=== PATIENT | female | born 1965 ===

== ENCOUNTER 2023-02-01 07:30 | Outpatient (REF) | payer OTHER, SELFPAY ==
[2023-02-01 11:27] LABS: Estimated Average Glucose 108 mg/dL; Hemoglobin A1c % 5.4 % (<6.0)
[2023-02-01 11:43] LABS: Appearance Urine Clear; Color Urine Yellow; Glucose Urine UA Negative (Negative); Leukocyte Esterase Urine Negative (Negative); Nitrite Urine Negative (Negative); Specific Gravity - Urine 1.015 (1.005-1.025); UMIC TRIGGER UA YES; Urine Blood Trace (Negative); Urine Ketones Negative (Negative); Urine Protein Negative (Neg-Trace)
[2023-02-01 11:51] LABS: Bacteria Urine 4+ (None Seen); Hyaline Casts Urine 0-2 /LPF (0-2); RBC Urine 0-2 /HPF (0-2); WBC Urine 0-5 /HPF (0-5)
[2023-02-01 11:53] LABS: Alanine Aminotransferase 29 U/L (0-31); Albumin Level 4.1 g/dL (3.5-5.0); Alkaline Phosphatase 72 U/L (39-117); Anion Gap 16 (12-20); Aspartate Amino Transferase 28 U/L (5-31); Bilirubin Total 0.4 mg/dL (0.0-1.0); Blood Urea Nitrogen 15 mg/dL (9-16); Calcium 9.8 mg/dL (8.4-10.2); Carbon Dioxide 27 mmol/L (22-29); Chloride 105 mmol/L (96-108); Cholesterol 166 mg/dL (<200); Estimated Glomerular Filt Rate > 60; Glucose Fasting 112 mg/dL (60-99); HDL Cholesterol 52 mg/dL (>40); LDL Cholesterol Calculated 91 mg/dL (<100); Potassium 4.5 mmol/L (3.3-5.1); Sodium 143 mmol/L (135-145); Total Protein 7.5 g/dL (6.5-8.0); Triglycerides 115 mg/dL (<150)
[2023-02-01 11:57] LABS: TSH reflex Free T4 1.87 uIU/mL (0.32-4.0); Vitamin D 25-OH Total 57.7 ng/mL (>30)
[2023-02-01 12:14] LABS: Creatinine Urine 96.28 mg/dL; Microalbum/Creatinine Ratio Ur 36.3 ug/mg cr (<30)
== END 2023-02-01 07:31 | disposition home or self-care (01) ==
LOC: HO.WFDLDS 07:30
PROVIDERS: Visit Provider Family Medicine
DX: Z00.00 Encounter for general adult medical examination without abnormal findings (principal); R73.01 Impaired fasting glucose; E55.9 Vitamin D deficiency, unspecified; I10 Essential (primary) hypertension
CPT/HCPCS: 36415; 80053; 80061; 81001; 82043; 82306; 82570; 83036; 84443

== ENCOUNTER 2023-03-06 13:55 | Outpatient (AMB) | payer OTHER, SELFPAY ==
[2023-03-06 13:59] VITALS: BP 128/64; PULSE 77; O2SAT 98; BMI 37.4
--- NOTE | 2023-03-06 13:59 | A.OFFPC_ITS ---
Vital Signs 03/06/23 13:59 Height 5 ft 2 in Weight 204 lb 8 oz BMI 37.4 BP 128/64 Blood Pressure Location Lt brachial Position Sitting Pulse 77 Pulse Source Pulse Oximeter Pulse Oximetry (%) 98 Oxygen Delivery Method Room Air Intake Visit Reasons: Ext.Exam w/ labs fup NEEDS MARQUIS Nieves MD INTERPRET. Intake Note: Patient is here with asthma symptoms and left foot pain. She had labs would like to go over them. Allergies No Known Allergies Allergy (Verified 03/06/23 14:06) Tobacco use date assessed: 03/06/23 Dental Screening Dental Screen Date: 03/06/23 Did you have a dental visit in the last 12 months?: Yes Did you have a dental problem in the last 6 months where you did not have access to dental care?: No Was dental information given to patient?: Patient has dentist HPI Ext.Exam w/ labs fup NEEDS MARQUIS Nieves MD INTERPRET. HPI Details Patient?presents?for?extended?exam Labs were drawn 02/01/23. Reviewed labs with pt. Elevated fasting glucose of 112 and A1c 5.4%. Triglycerides 115. TC 166. LDL 91. Asthma?symptoms - pt reports coughing/wheezing. Foot?pain Rash on arms They also have complaints of a rash. [facility] Medical History Prediabetes Asthma Kidney stone Hernia Surgical History History of ureteroscopy History of herniorrhaphy Family History Maternal Grandmother Alzheimer's dementia Osteoarthritis Father Diabetes Social History Caregiver staying overnight: No Housing: Apartment Are you a primary health care marketing manager to a significant other at home: No Do you presently have visiting nurse or other home services: No 75 years or older and lives alone: No Patient Tobacco Use Status: Former Tobacco user Quit Date: 3 Years ago Tobacco use type: Cigarette Cigarette Packs Per Day: 1 (1 pack per 2 days) Cigarettes Per Day: 10 e-Cigarette/Vaping Use: Never Used Second Hand Smoke Exposure: Yes (Due to where patient lives.) service: No Current occupational status: unemployed Current occupational exposures/hazards: No Cognitive needs: No Hearing needs: Yes Vision needs: Yes Questionnaire PHQ-9 Over the last 2 weeks, how often have you been bothered by any of the following problems? 1. Little interest or pleasure in doing things: not at all 2. Feeling down, depressed, or hopeless: several days 3. Trouble falling or staying asleep, or sleeping too much: several days 4. Feeling tired or having little energy: several days 5. Poor appetite or overeating: not at all 6. Feeling bad about yourself - or that you are a failure or have let yourself or your family down: not at all 7. Trouble concentrating on things, such as reading the newspaper or watching television: not at all 8. Moving or speaking so slowly that other people could have noticed. Or the opposite - being so fidgety or restless that you have been moving around a lot more than usual: not at all 9. Thoughts that you would be better off or of hurting yourself in some way: not at all Total score: 3 Depression Screening Interpretation: Negative Depression Screening Done: Yes 43418 - PHQ-9 Billing: Yes Source: Developed by Drs. Irwin Disla, Yany Bower, Ronen Cloud and colleagues, with an educational ros from [employer]. Thrive Questionnaire Date Thrive assessed: 09/26/22 ROBINSON-7 AMB Questionnaire ROBINSON-7 Date ROBINSON - 7 assessed: 03/06/23 Feeling nervous, anxious, or on edge: 1 = Several days Not being able to stop or control worryin = More than half the days Worrying too much about different things: 1 = Several days Trouble relaxin = Several days Being so restless that it is hard to sit still: 0 = Not at all Becoming easily annoyed or irritable: 2 = More than half the days Feeling afraid as if something awful might happen: 1 = Several days Total ROBINSON-7 score (0-4 normal; 5-9 mild; 10-14 moderate; 15-21 severe): 8 Source: Developed by Drs. Irwin Disla, Yany Bower, Ronen Cloud and colleagues, with an educational ros from [employer]. ROBINSON-7 Assessment Billing ROBINSON-7 Assessment Tool: ROBINSON-7 Assessment [id number] ACT Questionnaire In the past 4 weeks, how much of the time did your asthma keep you from getting as much done at work, school or at home?: Most of the time During the past 4 weeks, how often have you had shortness of breath?: Once a day During the past 4 weeks, how often did your asthma symptoms wake you up at night or earlier than usual in the morning?: 4 or more nights a week During the past 4 weeks, how often have you had to use your rescue inhaler or nebulizer medication?: More than 3 times per day How would you rate your asthma control during the past 4 weeks?: Poorly controlled Score: 8 Review of Systems Const Denies chills, Denies fatigue, Denies fever(s), Denies headache(s) and Denies weakness Eyes Denies change in vision ENT Denies dizziness, Denies headache(s), Denies hearing loss, Denies nasal congestion, Denies sinus pain, Denies sinus pressure and Denies sore throat Card Denies chest pain, Denies lightheadedness, Denies dyspnea and Denies other (palpitations) Resp Reports cough, Denies dyspnea and Denies wheezing GI Denies abdominal pain, Denies melena, Denies hematochezia, Denies change in bowel habits, Denies dyspepsia and Denies nausea Denies hematuria and Denies dysuria Musc Denies abnormal gait, Denies myalgias, Denies arthralgias, Denies numbness and Denies tingling Skin/Breast Reports rash Neuro Denies abnormal gait, Denies dizziness, Denies headache(s), Denies memory loss, Denies numbness, Denies Sensory deficit (Neuro), Denies tingling and Denies weakness Psych Denies anxiety, Denies depression and Denies memory loss Endo Denies cold intolerance, Denies fatigue, Denies heat intolerance, Denies polydipsia and Denies polyuria Donny/Lymph Denies easy bleeding and Denies easy bruising Aller/Immun Denies wheezing Physical exam (Primary Care) Vital Signs: Last Vital Signs Pulse 77 03/06/23 13:59 BP 128/64 03/06/23 13:59 Pulse Ox 98 03/06/23 13:59 Oxygen Delivery Method Room Air 03/06/23 13:59 BMI result Body Mass Index 37.4 Tobacco/Smoking Status: Tobacco use Status Tobacco use date assessed 03/06/23 03/06/23 14:08 Patient Tobacco Use Status Former Tobacco user 03/06/23 14:05 Tobacco use type Cigarette 03/06/23 14:05 e-Cigarette/Vaping Use Never Used 03/06/23 14:05 PHQ-9: PHQ-9 Score PHQ-9: Total score 3 03/06/23 14:18 Depression Screening Interpretation: Negative Thrive Assessment: Date of Thrive Assessment Date Thrive assessed 09/26/22 03/06/23 14:05 Const General: no acute distress, well developed, alert and awake Nutritional Appearance: well nourished Orientation/consciousness: patient oriented x3 HENMT Head: Yes normocephalic and Yes atraumatic Ears: hearing grossly normal bilaterally and TM's normal bilaterally General nose exam: Normal external nose present and Normal nares present Mouth: Normal oral and palatal mucosa present and moist mucous membranes Teeth and gingiva: dentition normal Throat: Yes posterior oropharynx normal Eyes General: appearance normal, both eyes and all related structures Pupils: Equal, round and reactive pupils present and Pupil accommodation reflex normal EOM: EOMs intact bilaterally Neck Neck: Yes normal visual inspection, Yes no lymphadenopathy and Yes trachea midline Thyroid: Thyroid normal Carotids: no bruits Lymphatic: no lymphadenopathy noted Chest Chest palpation & inspection: normal inspection of the chest Resp Effort & Inspection: normal respiratory effort Auscultation: clear to auscultation bilaterally Cardio Rate: regular rate Rhythm: regular rhythm Heart sounds: S1 normal heart sound present, S2 normal heart sound present, no gallops, no murmurs and no rubs Bruits: no abdominal aortic bruits and no carotid bruits GI Palpation (GI): No Abdominal aortic bruit present, Soft to palpation, nontender, No hepatosplenomegaly present and No Rebound tenderness present Auscultation: normal bowel sounds General: Yes no CVA tenderness Back/Spine/Pelvis Back: no CVA tenderness Cervical Spine: cervical ROM normal and No Cervical spine tenderness Thoracic/Lumbar Spine: thoraco-lumbar ROM normal, No pain with thoraco-lumbar ROM, No thoracic spinal tenderness and No lumbar spinal tenderness Skin Lesions: no lesions Rashes: no rashes Trauma: no lacerations or abrasions Wounds: no wounds Nails: normal Neuro General: patient oriented x3 Cranial nerves: Yes Equal, round and reactive pupils present Cognition (Neuro): normal cognition Gait exam (Neuro): Normal gait present Motor exam (neuro): 5/5 motor strength present throughout Sensory Exam: No Sensory deficit (Neuro) Deep tendon reflexes (DTR's): Right patellar reflex intensity grade: 2+ and Left patellar reflex intensity grade: 2+ Extrem General: Yes normal to inspection and No edema Psych Appearance: grossly normal Affect: normal affect Attitude: cooperative Thought process: Normal thought process present Assessment and Plan Assessment & Plan (1) Asthma exacerbation: Code(s): J45.901 - Unspecified asthma with (acute) exacerbation Plan: Poorly?controlled?asthma.??Patient?taking?Ventolin?inhaler?only.??Only?taking?th is?about?twice?a?day. Would? increase?to?4?times?per?day?and?up?to?every?4?hours?as?needed?for?symptoms. Patient?had?had?Trelegy?in?the?past?and?I?will?add?this?back?as?well. Of?note?patient?had?strong?perfume?and?I?recommended?against?this. (2) Rash: Code(s): R21 - Rash and other nonspecific skin eruption Plan: Rash?on?arms?and?as?above,?patient?had?strong?smelling?perfumes/lotion Advised?against?this. Can?use?Lubriderm?or?Eucerin (3) Diabetes: Code(s): E11.9 - Type 2 diabetes mellitus without complications Plan: Controlled.??A1c?goal?is?less?than?7.0% Continue?current?medication?regimen?and?continue?good?diabetic?diet. (4) Plantar fasciitis: Code(s): M72.2 - Plantar fascial fibromatosis Plan: Demonstrated?exercises?for?patient. She?can?call?if?not?improving (5) Low vitamin D level: Code(s): R79.89 - Other specified abnormal findings of blood chemistry Plan: Vitamin-D?level?is?good She?can?use?a?OTC?supplement?through?the?winter. (6) GERD (gastroesophageal reflux disease): Code(s): K21.9 - Gastro-esophageal reflux disease without esophagitis Plan: Significant?GERD?symptoms Increased?omeprazole?temporarily Referred?to?GI (7) Breast cancer screening: Code(s): Z12.39 - Encounter for other screening for malignant neoplasm of breast Plan: Due?for?mammogram Patient?notes?that?she?had?an?abnormal?mammogram?but?normal?biopsy Mammogram?ordered (8) Anxiety: Code(s): F41.9 - Anxiety disorder, unspecified Plan: Referred?to?nurse?navigator?for?connection?with?a?therapist (9) Foul smelling urine: Code(s): R82.90 - Unspecified abnormal findings in urine Plan: Start?Macrobid Hydrate?well (10) Obesity: Code(s): E66.9 - Obesity, unspecified Plan: Referred?to?weight?management (11) Screening for colon cancer: Code(s): Z12.11 - Encounter for screening for malignant neoplasm of colon Plan: Referred?to?GI?as?above (12) Screening for cervical cancer: Code(s): Z12.4 - Encounter for screening for malignant neoplasm of cervix Plan: No?further?Pap?smears.??Patient?has?had?hysterectomy (13) Adult general medical examination: Code(s): Z00.00 - Encounter for general adult medical examination without abnormal findings Plan: 57-year-old?female?presents?for?extended?exam Encouraged?healthy?diet?with?active?lifestyle?and?exercise. Orders: Orders Basic Metabolic Panel Fasting Today E66.9 - Obesity, unspecified MM tomosynthesis screening BI Today Z12.31 - Encounter for screening mammogram for malignant neoplasm of breast Referrals Nurse Navigator Referral F41.9 - Anxiety disorder, unspecified Medical Weight Management Referral E11.9 - Type 2 diabetes mellitus without complications, E66.9 - Obesity, unspecified Gastroenterology Referral K21.9 - Gastro-esophageal reflux disease without esophagitis, Z12.11 - Encounter for screening for malignant neoplasm of colon Medications: New nitrofurantoin monohyd/m-cryst 100 mg (Macrobid) must administer with a meal/food 100 mg PO Q12H 5 days 10 caps 0RF Coding Level of Care Code Est Pt Level 4 (65061) Diagnoses Asthma exacerbation J45.901 Rash R21 Diabetes E11.9 Plantar fasciitis M72.2 Low vitamin D level R79.89 GERD (gastroesophageal reflux disease) K21.9 Breast cancer screening Z12.39 Anxiety F41.9 Foul smelling urine R82.90 Obesity E66.9 Screening for colon cancer Z12.11 Screening for cervical cancer Z12.4 Adult general medical examination Z00.00 Additional Codes ROBINSON-7 Assessment Billing - ROBINSON-7 Assessment Tool: ROBINSON-7 Assessment [id number] ([id number])
== END 2023-03-06 15:00 | disposition home or self-care (01) ==
PROVIDERS: PCP Family Medicine; Visit Provider Family Medicine
DX: E11.9 Type 2 diabetes mellitus without complications (principal); J45.901 Unspecified asthma with (acute) exacerbation; R21 Rash and other nonspecific skin eruption; M72.2 Plantar fascial fibromatosis; R79.89 Other specified abnormal findings of blood chemistry; K21.9 Gastro-esophageal reflux disease without esophagitis; F41.9 Anxiety disorder, unspecified; R82.90 Unspecified abnormal findings in urine; E66.9 Obesity, unspecified
CPT/HCPCS: 99214

== ENCOUNTER 2023-03-19 17:11 | Emergency (ER) | payer OTHER, SELFPAY ==
--- NOTE | ~2023-03-19 | XR_ITS ---
EXAMINATION: XR CHEST CLINICAL INFORMATION: Cough COMPARISON: None available. TECHNIQUE: Frontal view of the chest was obtained. FINDINGS: No significant abnormality is noted involving the heart, lungs, mediastinum, bony thorax or soft tissues. XR/XR chest 1V IMPRESSION: Unremarkable examination.
[2023-03-19 17:32] VITALS: BP 153/103; PULSE 98; RESP 24; TEMP 36.4; O2SAT 94; BMI 34.3
--- NOTE | 2023-03-19 17:32 | ED_ITS ---
HPI - General Adult General Chief complaint: Asthma Stated complaint: Asthma Time Seen by Provider: 03/19/23 17:51 History of Present Illness HPI narrative: 57 y/o F patient; PMH HTN, asthma, pre-diabetes; presents from out-patient services at this hospital reporting increased difficulty breathing with walking. The patient states she was in the hospital watching her grandson while her daughter had a procedure. On their walk to the car she became increasingly short of breath with coughing. For approx the last 1 week she has had increased runny nose, congestion, and dry non-productive coughing. She does not currently follow with pulmonology as [place] 1 [place] ago from [place]. She denies any prior ICU admissions or intubations. She has been an ex-smoker for 3 years. She otherwise denies: chest pain, fever or chills, nausea or vomiting, abdominal pain. Related Data Home Medications Medication Instructions Recorded Confirmed albuterol sulfate 90 mcg/actuation 1 inh inhalation QID 09/26/22 aerosol inhaler (Ventolin HFA) Previous Rx's Medication Instructions Recorded lisinopril 5 mg tablet 5 mg PO DAILY 90 days #90 tabs 09/27/22 metformin 500 mg tablet 500 mg PO DAILY 90 days #90 tabs 09/27/22 budesonide-formoterol HFA 80 1 inh inhalation BID 30 days #10.2 12/25/22 mcg-4.5 mcg/actuation aerosol grams inhaler (Symbicort) nitrofurantoin 100 mg PO Q12H 5 days #10 caps 03/06/23 monohydrate/macrocrystals 100 mg capsule (Macrobid) albuterol sulfate 90 mcg/actuation 2 puff inhalation Q6-8H PRN 03/11/23 aerosol inhaler (Ventolin HFA) wheezing 0 days #8.5 grams fluticasone fur. 200 mcg-umeclid 1 inh inhalation DAILY 28 days #28 03/12/23 62.5 mcg-vilant 25 mcg ea inhalat.powder (Trelegy Ellipta) omeprazole 20 mg capsule,delayed 20 mg PO DAILY 90 days #90 caps 03/12/23 release albuterol sulfate 2.5 mg/3 mL 2.5 mg (3 mL) inhalation Q4-6H PRN 03/14/23 (0.083 %) solution for nebulization shortness of breath or wheezing 30 days #180 mL fluticasone 500 mcg-salmeterol 50 1 inh inhalation Q12H 30 days #60 03/14/23 mcg/dose blistr powdr for ea inhalation (Wixela Inhub) ipratropium bromide 17 2 puff inhalation Q8H #12.9 grams 03/19/23 mcg/actuation HFA aerosol inhaler (Atrovent HFA) prednisone 50 mg tablet 50 mg PO DAILY 5 days #5 tabs 03/19/23 Allergies Allergy/AdvReac Type Severity Reaction Status Date / Time No Known Allergies Allergy Verified 03/06/23 14:06 Review of Systems 2 Review of Systems: Yes all other systems are reviewed and are negative [facility] Past Medical History Attestation statement: The following information was validated with the patient. Medical History Prediabetes Asthma Kidney stone Hernia Surgical History History of ureteroscopy History of herniorrhaphy Family History Family History Maternal Grandmother Alzheimer's dementia Osteoarthritis Father Diabetes Social History Social History Housing: Apartment Are you a primary wound care specialist to a significant other at home: No Do you presently have visiting nurse or other home services: No Patient Tobacco Use Status: Former Tobacco user Quit Date: 3 Years ago Tobacco use type: Cigarette Cigarette Packs Per Day: 1 (1 pack per 2 days) Cigarettes Per Day: 10 Smoked in Last 30 Days: No e-Cigarette/Vaping Use: Never Used Second Hand Smoke Exposure: Yes (Due to where patient lives.) Advance Directives: No Advance Directives Information Provided: No service: No Current occupational status: unemployed Current occupational exposures/hazards: No Cognitive needs: No Hearing needs: Yes Vision needs: Yes Physical Exam ED Vital Signs: Vital Signs - 24 hr 03/19/23 17:32 03/19/23 19:32 03/19/23 20:43 Temperature 97.5 F Pulse Rate 98 88 92 Respiratory Rate 24 H 18 18 Blood Pressure 153/103 H 117/66 Pulse Oximetry 94 98 Oxygen Delivery Method Room Air Room Air BMI result Body Mass Index 34.3 Patient is afebrile, mildly tachycardic, and saturating well on room air. Const General: cooperative, comfortable and no acute distress Orientation/consciousness: patient oriented x3 Chest Chest palpation & inspection: normal inspection of the chest Resp Other: Bilateral end-expiratory diffuse wheezing Effort & Inspection: normal respiratory effort, able to speak in complete sentences, no audible wheezes, no respiratory distress, no retractions, no stridor and not tachypneic Auscultation: wheezes Cardio Rate: regular rate Rhythm: regular rhythm GI Inspection: Yes normal to inspection Palpation (GI): Soft to palpation, nontender, no guarding and not rigid Auscultation: normal bowel sounds Neuro General: patient oriented x3 Course Course Course Narrative: This is an RME: Additional HPI, ROS, PE not included below will be deferred to primary provider. 57 year old female presents w/ cough, congestion and asthma X 1 week using home treatments w/ little to no relief. Plan- bronch protocol Reevaluation(s) Reevaluation #1: Reviewed triage work up including CBC, BMP, and CXR. Laboratory studies unremarkable. CXR read as unremarkable. Received x1 Albuterol 2.5mg dose by respiratory. Ordered Solu-Medrol 125mg IV. Requested second treatment with respiratory. Patient saturating 100% on RA. Reevaluation #2: Patient re-evaluated multiple times. Reports significant improvement following 2nd treatment. Ambulatory O2 >95% on RA. Patient comfortably eating [employer]. Patient requesting Atrovent rx. Clarified with patient she is only taking Ventolin right now due to issues with insurance authorization. Will send rx Atrovent to pharmacy. Plan: Discharge to home with PCP follow up, referral for pulmonology provided Condition: Stable Rx Prednisone 5 days 50mg sent to pharmacy Medications Administered Discontinued Medications Generic Name Dose Route Start Last Admin Trade Name Freq PRN Reason Stop Dose Admin Albuterol Sulfate 5 mg/ 0 mg 03/19/23 20:38 03/19/23 20:41 Albuterol/Ipratropium 3 ml INHALE 03/19/23 20:39 7.5 each ONCE ONE Administration Methylprednisolone Sodium Succinate 125 mg 03/19/23 20:22 03/19/23 20:33 Methylprednisolone Sod Succ 125 Mg/2 Ml Vial IVPUSH 03/19/23 20:23 125 mg ONCE ONE Administration Medical Decision Making Lab Data 03/19/23 17:49 03/19/23 17:49 Labs: Lab Results 03/19/23 Range/Units 17:49 WBC 9.6 (4.8-10.8) X10*3/uL RBC 4.53 (4.20-5.50) X10*6/uL Hgb 13.6 (12.0-16.0) g/dl Hct 41.2 (37.0-47.0) % MCV 90.9 (80.0-98.0) fL MCH 30.0 (27.0-33.0) pg MCHC 33.0 (31.0-35.0) g/dl RDW 13.2 (11.0-16.0) % Plt Count 324 (160-400) X10*3/uL MPV 9.3 L (9.4-12.3) fL Immature Gran % (Auto) 0.6 H (0.0-0.4) % Neut % (Auto) 53.5 (45-73) % Lymph % (Auto) 30.4 (20-40) % Barrow % (Auto) 8.1 (2-11) % Eos % (Auto) 6.6 H (0-4) % Baso % (Auto) 0.8 (0-2) % Lymph # (Auto) 2.9 (1.2-4.9) X10*3/uL [place] # (Auto) 0.8 (0.1-1.2) X10*3/uL Eos # (Auto) 0.6 H (0.0-0.4) X10*3/uL Baso # (Auto) 0.1 (0.0-0.2) X10*3/uL Abs Immat Gran (auto) 0.06 H (0.00-0.03) X10*3/uL Absolute Neuts (auto) 5.2 (2.0-8.3) x10*3/uL Absolute Nucleated RBC 0.000 (0.0-0.012) X10*3/uL Nucleated RBC % (auto) 0.0 (0.0-0.2) /100WBC Sodium 144 (135-145) mmol/L Potassium 4.1 (3.3-5.1) mmol/L Chloride 107 (96-108) mmol/L Carbon Dioxide 29 (22-29) mmol/L Anion Gap 12 (12-20) BUN 12 (9-16) mg/dL Creatinine 0.75 (0.5-1.4) mg/dL Estim Creat Clear Calc 89.2 Estimated GFR > 60 Random Glucose 93 (60-115) mg/dL Calcium 9.3 (8.4-10.2) mg/dL Total Bilirubin 0.2 (0.0-1.0) mg/dL AST 32 H (5-31) U/L ALT 30 (0-31) U/L Alkaline Phosphatase 80 (39-117) U/L Total Protein 7.8 (6.5-8.0) g/dL Albumin 4.2 (3.5-5.0) g/dL Discharge Plan Discharge Clinical Impression: Asthma exacerbation Patient Disposition: Home, Self-Care Instructions: Asthma (DC) Additional Instructions: As we discussed, you were seen today for an asthma exacerbation. You received a steroid and breathing treatments with improvement. A steroid has been sent to your pharmacy, take this once a day for 5 days. Please follow up with the building insulation installer within 1 week to discuss your recent ED visit. Return to the ED for chest pain, worsening difficulty breathing. Prescriptions: New prednisone 50 mg tablet 50 mg PO DAILY 5 Days Qty: 5 0RF Atrovent HFA 17 mcg/actuation HFA aerosol inhaler 2 puff inhalation Q8H Qty: 12.9 0RF No Action metformin 500 mg tablet 500 mg PO DAILY 90 Days Qty: 90 3RF lisinopril 5 mg tablet 5 mg PO DAILY 90 Days Qty: 90 2RF budesonide-formoterol [Symbicort] 80-4.5 mcg/actuation HFA aerosol inhaler 1 inh inhalation BID 30 Days Qty: 10.2 3RF albuterol sulfate [Ventolin HFA] 90 mcg/actuation HFA aerosol inhaler 2 puff inhalation Q6-8H PRN (Reason: wheezing) Qty: 8.5 3RF Trelegy Ellipta 200-62.5-25 mcg blister with device 1 inh inhalation DAILY 28 Days Qty: 28 3RF omeprazole 20 mg capsule,delayed release(DR/EC) 20 mg PO DAILY 90 Days Qty: 90 2RF fluticasone propion-salmeterol [Wixela Inhub] 500-50 mcg/dose blister with device 1 inh inhalation Q12H 30 Days Qty: 60 3RF albuterol sulfate 2.5 mg /3 mL (0.083 %) solution for nebulization 2.5 mg inhalation Q4-6H PRN (Reason: shortness of breath or wheezing) 30 Days Qty: 180 3RF nitrofurantoin monohyd/m-cryst [Macrobid] 100 mg capsule 100 mg PO Q12H 5 Days Qty: 10 0RF Rx Instructions: must administer with a meal/food albuterol sulfate [Ventolin HFA] 90 mcg/actuation HFA aerosol inhaler 1 inh inhalation QID Referrals: [facility] [Provider Group] - 1 week
[2023-03-19 17:54] LABS: MANUAL DIFF FLAG NO
[2023-03-19 17:56] LABS: Basophils Absolute Auto 0.1 X10*3/uL (0.0-0.2); Basophils Percent Auto 0.8 % (0-2); Eosinophils Absolute Auto 0.6 X10*3/uL (0.0-0.4); Eosinophils Percent Auto 6.6 % (0-4); Hematocrit 41.2 % (37.0-47.0); Hemoglobin 13.6 g/dl (12.0-16.0); Imm Gran Abs Auto 0.06 X10*3/uL (0.00-0.03); Imm Gran Pct Auto 0.6 % (0.0-0.4); Lymphocytes Absolute Auto 2.9 X10*3/uL (1.2-4.9); Lymphocytes Percent Auto 30.4 % (20-40); Mean Corpuscular Volume 90.9 fL (80.0-98.0); Mean Platelet Volume 9.3 fL (9.4-12.3); Monocytes Absolute Auto 0.8 X10*3/uL (0.1-1.2); Monocytes Percent Auto 8.1 % (2-11); Neutrophils Absolute Auto 5.2 x10*3/uL (2.0-8.3); Neutrophils Percent Auto 53.5 % (45-73); Platelet Count 324 X10*3/uL (160-400); Red Blood Count 4.53 X10*6/uL (4.20-5.50); Red Cell Distribution Width 13.2 % (11.0-16.0); White Blood Count 9.6 X10*3/uL (4.8-10.8)
[2023-03-19 18:10] LABS: Alanine Aminotransferase 30 U/L (0-31); Albumin Level 4.2 g/dL (3.5-5.0); Alkaline Phosphatase 80 U/L (39-117); Anion Gap 12 (12-20); Aspartate Amino Transferase 32 U/L (5-31); Bilirubin Total 0.2 mg/dL (0.0-1.0); Blood Urea Nitrogen 12 mg/dL (9-16); Calcium 9.3 mg/dL (8.4-10.2); Carbon Dioxide 29 mmol/L (22-29); Chloride 107 mmol/L (96-108); Creatinine Clr Calc Pharmacy 89.2; Estimated Glomerular Filt Rate > 60; Glucose Random 93 mg/dL (60-115); Potassium 4.1 mmol/L (3.3-5.1); Sodium 144 mmol/L (135-145); Total Protein 7.8 g/dL (6.5-8.0)
[2023-03-19 19:32] VITALS: BP 117/66; PULSE 88; RESP 18; O2SAT 98
[2023-03-19] MEDS: methylPREDNISolone Sod Succ 125 MG/2 ML VIAL IVPUSH (20:33)
[2023-03-19] MEDS: Albuterol Sulfate 5 MG, Albuterol/Iprat 2.5/0.5MG 3 ML 3 ML INHALE (20:41)
[2023-03-19 20:43] VITALS: PULSE 92; RESP 18; O2SAT 99
== END 2023-03-19 22:05 | disposition home or self-care (01) ==
PROVIDERS: Emergency Provider Emergency Medicine; PCP Family Medicine
DX: J45.901 Unspecified asthma with (acute) exacerbation (principal); I10 Essential (primary) hypertension; E11.9 Type 2 diabetes mellitus without complications; Z87.891 Personal history of nicotine dependence
CPT/HCPCS: 36415; 71045; 80053; 85025; 94640; 96374; 99284; 99285; J2930

== ENCOUNTER 2023-04-10 09:11 | Emergency (ER) | payer OTHER, SELFPAY ==
--- NOTE | ~2023-04-10 | XR_ITS ---
EXAMINATION: XR CHEST CLINICAL INFORMATION: Cough. COMPARISON: Chest x-ray 03/19/2023. TECHNIQUE: 2 views of the chest were obtained. FINDINGS: The lungs are well-expanded and clear of acute process. Heart size and pulmonary vascularity is normal. There is a right pericardial fat which has slightly increased since the last study. Bone windows reveal no gross abnormality. XR/XR chest 2V IMPRESSION: Unremarkable chest exam.
[2023-04-10 10:00] VITALS: BP 151/84; PULSE 90; RESP 16; TEMP 36.7; O2SAT 96; BMI 36.6
--- NOTE | 2023-04-10 10:15 | ED.ASTHMA ---
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 Patient states that since yesterday she has had increased wheezing. Patient denies any dizziness, lightheadedness, abdominal pain, nausea, vomiting, fever, chills, blurry vision, double vision, loss of vision, chest pain, difficulty breathing, shortness of breath, back pain, night sweats, pain with urination, increased urinary frequency, increased urinary urgency, blood in her urine or stool, syncope or a near syncopal episode, recent trauma or falls, bowel incontinence, bladder incontinence, bowel retention, bladder retention, or any other complaints at this time. MD complaint: wheezing Onset (ago): day(s) (1) Severity: mild Context: none known Associated symptoms: none Treatments Prior to Arrival: inhaled bronchodilator Related Data Current Asthma Therapy: inhaled bronchodilator Home Medications Medication Instructions Recorded Confirmed albuterol sulfate 90 mcg/actuation 1 inh inhalation QID 09/26/22 aerosol inhaler (Ventolin HFA) Previous Rx's Medication Instructions Recorded lisinopril 5 mg tablet 5 mg PO DAILY 90 days #90 tabs 09/27/22 metformin 500 mg tablet 500 mg PO DAILY 90 days #90 tabs 09/27/22 budesonide-formoterol HFA 80 1 inh inhalation BID 30 days #10.2 12/25/22 mcg-4.5 mcg/actuation aerosol grams inhaler (Symbicort) nitrofurantoin 100 mg PO Q12H 5 days #10 caps 03/06/23 monohydrate/macrocrystals 100 mg capsule (Macrobid) albuterol sulfate 90 mcg/actuation 2 puff inhalation Q6-8H PRN 03/11/23 aerosol inhaler (Ventolin HFA) wheezing 0 days #8.5 grams fluticasone fur. 200 mcg-umeclid 1 inh inhalation DAILY 28 days #28 03/12/23 62.5 mcg-vilant 25 mcg ea inhalat.powder (Trelegy Ellipta) omeprazole 20 mg capsule,delayed 20 mg PO DAILY 90 days #90 caps 03/12/23 release albuterol sulfate 2.5 mg/3 mL 2.5 mg (3 mL) inhalation Q4-6H PRN 03/14/23 (0.083 %) solution for nebulization shortness of breath or wheezing 30 days #180 mL fluticasone 500 mcg-salmeterol 50 1 inh inhalation Q12H 30 days #60 03/14/23 mcg/dose blistr powdr for ea inhalation (Wixela Inhub) ipratropium bromide 17 2 puff inhalation Q8H #12.9 grams 03/19/23 mcg/actuation HFA aerosol inhaler (Atrovent HFA) prednisone 50 mg tablet 50 mg PO DAILY 5 days #5 tabs 03/19/23 albuterol sulfate 90 mcg/actuation 2 puff inhalation QID #8.5 grams 04/10/23 aerosol inhaler prednisone 20 mg tablet 20 mg PO DAILY 12 days #26 tabs 04/10/23 Allergies Allergy/AdvReac Type Severity Reaction Status Date / Time No Known Allergies Allergy Verified 04/10/23 09:59 Review of Systems Constitutional: Constitutional: Reports no additional constitutional complaints, Denies chills, Denies fever(s) and Denies night sweats Eyes: Eyes: Reports no additional eye complaints, Denies blurry vision, Denies change in vision, Denies diplopia, Denies eye discharge, Denies loss of vision and Denies eye pain ENT: Denies dizziness Cardiovascular: Cardiovascular: Reports no additional cardiovascular complaints, Denies chest pain, Denies lightheadedness, Denies Loss of Consciousness and Denies dyspnea Respiratory: Respiratory: Reports no additional respiratory complaints, Denies dyspnea and Reports wheezing Gastrointestinal: Gastrointestinal: Reports no additional gastrointestinal complaints, Denies abdominal pain, Denies melena, Denies hematochezia, Denies change in bowel habits and Denies change in stool character Genitourinary: Genitourinary: Denies hematuria, Denies urinary frequency, Denies dysuria, Denies urinary incontinence, Denies urinary hesitancy and Denies urinary urgency Musculoskeletal: Musculoskeletal: Reports no additional musculoskeletal complaints, Denies numbness and Denies tingling Neurologic: Denies dizziness, Denies loss of vision, Denies numbness and Denies tingling Psychiatric: Psychiatric: Reports no additional psychiatric complaints Endocrine: Endocrine: Reports no additional endocrine complaints Hematologic/Lymphatic: Hematologic/Lymphatic: Reports no additional hematologic/lymphatic complaints Allergic/Immunologic: Allergic/Immunologic: Reports no additional allergic/immunologic complaints and Reports wheezing PMFSH Past Medical History Attestation statement: The following information was validated with the patient. Source: old records reviewed and nursing notes reviewed Medical History Foul smelling urine Obesity Elevated fasting glucose Foot pain Screening for cervical cancer Breast cancer screening Screening for colon cancer Adult general medical examination Rash Laboratory exam ordered as part of routine general medical examination Prediabetes Asthma Kidney stone Hernia Surgical History History of ureteroscopy History of herniorrhaphy Family History Family History Maternal Grandmother Alzheimer's dementia Osteoarthritis Father Diabetes Social History Social History Housing: Apartment Are you a primary client care specialist to a significant other at home: No Do you presently have visiting nurse or other home services: No Patient Tobacco Use Status: Former Tobacco user Quit Date: 3 Years ago Tobacco use type: Cigarette Cigarette Packs Per Day: 1 (1 pack per 2 days) Cigarettes Per Day: 10 e-Cigarette/Vaping Use: Never Used Second Hand Smoke Exposure: Yes (Due to where patient lives.) Advance Directives: No Advance Directives Information Provided: No service: No Current occupational status: unemployed Current occupational exposures/hazards: No Cognitive needs: No Hearing needs: Yes Vision needs: Yes Physical Exam Vital Signs: Vital Signs: Last Vital Signs Temp 98.1 F 04/10/23 10:00 Pulse 87 04/10/23 12:17 Resp 20 04/10/23 12:17 BP 151/84 H 04/10/23 10:00 Pulse Ox 97 04/10/23 10:40 O2 Del Method Room Air 04/10/23 10:40 BMI result Body Mass Index 36.6 Const: General: cooperative, no acute distress, alert and awake Nutritional Appearance: well nourished Orientation/consciousness: patient oriented x3 Limitations: no limitations HEENT: Head: Yes normal to inspection and Yes atraumatic Ears: hearing grossly normal bilaterally and external ears normal General nose exam: Normal external nose present, no nasal discharge noted and no epistaxis Face and sinus: Yes normal facial exam, No abrasion and No laceration Mouth: Normal oral and palatal mucosa present, no drooling and no muffled voice Eyes: General: appearance normal, both eyes and all related structures Periorbital: periorbital findings normal Eyelids: Yes eyelids normal Conjunctivae: conjunctivae normal Pupils: Equal, round and reactive pupils present EOM: EOMs intact bilaterally Neck: Neck: Yes normal visual inspection, Yes full ROM and Yes no lymphadenopathy Chest: Chest palpation & inspection: normal inspection of the chest Resp: Effort & Inspection: normal respiratory effort and able to speak in complete sentences Auscultation: wheezes scattered wheezes GI: Inspection: Yes normal to inspection Neuro: General: patient oriented x3 and moves all extremities Cranial nerves: Yes Equal, round and reactive pupils present Cognition (Neuro): normal cognition Motor exam (neuro): 5/5 motor strength present throughout Sensory Exam: Normal double simultaneous stimulation for sensation Coordination: [id number] test normal Extrem: General: Yes normal to inspection, Yes full ROM and Yes capillary refill normal Psych: Appearance: grossly normal Mental Status: mental status grossly normal Affect: normal affect Attitude: cooperative Thought process: Normal thought process present Thought content: Normal thought content present Insight: Good insight present (Psych) Medications Administered Discontinued Medications Generic Name Dose Route Start Last Admin Trade Name Freq PRN Reason Stop Dose Admin Albuterol Sulfate 2.5 mg/ 5 mg 04/10/23 11:47 04/10/23 11:50 Albuterol Sulfate 2.5 mg INHALE 04/10/23 11:48 5 mg ONCE ONE Administration Albuterol Sulfate 2 puff 04/10/23 12:05 04/10/23 12:16 Albuterol Sulfate 90 Mcg 8 Gm Inhaler INHALE 04/10/23 12:06 2 puff ONCE ONE Administration Albuterol Sulfate 5 mg/ 0 mg 04/10/23 10:16 04/10/23 10:20 Albuterol/Ipratropium 3 ml INHALE 04/10/23 10:17 5 each ONCE ONE Administration Methylprednisolone Sodium Succinate 60 mg 04/10/23 10:20 04/10/23 10:38 Methylprednisolone Sod Succ 125 Mg/2 Ml Vial IM 04/10/23 10:21 60 mg ONCE ONE Administration Medical Decision Making Medical Decision Making MDM Narrative: Patient is a 58 year old assigned female at with a history of asthma, anxiety, HTN, and DM presenting to the emergency department today with increased wheezing. Patient's physical exam was as noted in the physical exam portion of this note. Patient's chest x-ray showed no acute process. I explained my physical exam findings as well as all test results to the patient. I answered all questions asked by the patient. I stressed the importance of the patient taking her medication as prescribed. I stressed the importance of the patient following up with her primary care provider. I stressed the importance of the patient returning to the emergency department immediately if her symptoms were to worsen or if she were to develop any dizziness, shortness of breath, difficulty breathing, chest pain, blurry vision, loss of vision, nausea, vomiting, abdominal pain, fever, chills, back pain, or any other complaints. Patient verbalized agreement and understanding with this treatment plan and discharge. Differential Diagnosis Differential Diagnoses: The differential diagnosis associated with the presentation includes Asthma exacerbation Wheezing Admission/Observation Consideration of admission/observation: Escalation of care including admission/observation considered Patient would have been admitted to the hospital had her work up had any findings where hospital admission was appropriate and her clinical presentation warranted hospital admission. Independent Interpretation I performed an independent interpretation of an: Plain X-Ray Interpretation: My interpretation is in agreement with the radiologist's impression of this imaging study. EXAMINATION: XR CHEST CLINICAL INFORMATION: Cough. COMPARISON: Chest x-ray 03/19/2023. TECHNIQUE: 2 views of the chest were obtained. FINDINGS: The lungs are well-expanded and clear of acute process. Heart size and pulmonary vascularity is normal. There is a right pericardial fat which has slightly increased since the last study. Bone windows reveal no gross abnormality. XR/XR chest 2V IMPRESSION: Unremarkable chest exam. Dictated By: Mc Del Toro MD Signed By: Electronically signed by Mc Del Toro MD 04/10/23 1219 Radiology Impression Discussion of test interpretation with radiology: I have reviewed the radiologist's reading. Chronic Conditions Patient?s care impacted by: Diabetes and Hypertension Discharge Plan Discharge Clinical Impression: Asthma Patient Disposition: Home, Self-Care Instructions: Asthma (DC) Additional Instructions: Follow up with your primary care provider. Return to the emergency department immediately if your symptoms worsen or if you develop any dizziness, shortness of breath, difficulty breathing, chest pain, blurry vision, loss of vision, nausea, vomiting, abdominal pain, fever, chills, back pain, or any other complaints. Pato un seguimiento con waite proveedor de atenci?n primaria. Regrese al departamento de emergencias inmediatamente si susan s?ntomas empeoran o si presenta mareos, dificultad para respirar, dificultad para respirar, dolor en el pecho, visi?n borrosa, p?rdida de la visi?n, n?useas, v?mitos, dolor abdominal, fiebre, escalofr?os, dolor de espalda o cualquier otras quejas. Prescriptions: New prednisone 20 mg tablet 20 mg PO DAILY 12 Days Qty: 26 0RF Rx Instructions: Take 3 tablets for 5 days THEN; Take 2 tablets for 4 days THEN; Take 1 tablet for 3 days albuterol sulfate 90 mcg/actuation HFA aerosol inhaler 2 puff inhalation QID Qty: 8.5 0RF No Action metformin 500 mg tablet 500 mg PO DAILY 90 Days Qty: 90 3RF lisinopril 5 mg tablet 5 mg PO DAILY 90 Days Qty: 90 2RF budesonide-formoterol [Symbicort] 80-4.5 mcg/actuation HFA aerosol inhaler 1 inh inhalation BID 30 Days Qty: 10.2 3RF albuterol sulfate [Ventolin HFA] 90 mcg/actuation HFA aerosol inhaler 2 puff inhalation Q6-8H PRN (Reason: wheezing) Qty: 8.5 3RF Trelegy Ellipta 200-62.5-25 mcg blister with device 1 inh inhalation DAILY 28 Days Qty: 28 3RF omeprazole 20 mg capsule,delayed release(DR/EC) 20 mg PO DAILY 90 Days Qty: 90 2RF fluticasone propion-salmeterol [Wixela Inhub] 500-50 mcg/dose blister with device 1 inh inhalation Q12H 30 Days Qty: 60 3RF albuterol sulfate 2.5 mg /3 mL (0.083 %) solution for nebulization 2.5 mg inhalation Q4-6H PRN (Reason: shortness of breath or wheezing) 30 Days Qty: 180 3RF prednisone 50 mg tablet 50 mg PO DAILY 5 Days Qty: 5 0RF Atrovent HFA 17 mcg/actuation HFA aerosol inhaler 2 puff inhalation Q8H Qty: 12.9 0RF nitrofurantoin monohyd/m-cryst [Macrobid] 100 mg capsule 100 mg PO Q12H 5 Days Qty: 10 0RF Rx Instructions: must administer with a meal/food albuterol sulfate [Ventolin HFA] 90 mcg/actuation HFA aerosol inhaler 1 inh inhalation QID Referrals: Oj Aparicio MD [Primary Care Provider] - Stand Alone Forms: Work/School Release Interventions: ED Discharge Assessment Last Done: 04/10/23 12:34 Discharge Date/Time: 04/10/23 12:35 Print Language: Luxembourger
[2023-04-10] MEDS: Albuterol Sulfate 5 MG, Albuterol/Iprat 2.5/0.5MG 3 ML 3 ML INHALE (10:20)
[2023-04-10 10:23] VITALS: PULSE 87; RESP 26; O2SAT 96
[2023-04-10] MEDS: methylPREDNISolone Sod Succ 125 MG/2 ML VIAL 60 MG IM (10:38)
[2023-04-10 10:40] VITALS: PULSE 100; O2SAT 97
[2023-04-10] MEDS: Albuterol Sulfate 2.5 MG, Albuterol Sulfate (0.083%) 2.5 MG 5 MG INHALE (11:50)
[2023-04-10 11:51] VITALS: PULSE 87; RESP 18; O2SAT 96
[2023-04-10] MEDS: Albuterol Sulfate 90 MCG 8 GM INHALER 2 PUFF INHALE (12:16)
[2023-04-10 12:17] VITALS: PULSE 87; RESP 20; O2SAT 95
== END 2023-04-10 12:35 | disposition home or self-care (01) ==
PROVIDERS: Emergency Provider Emergency Medicine Emergency Medical Services; PCP Family Medicine
DX: J45.909 Unspecified asthma, uncomplicated (principal); E11.9 Type 2 diabetes mellitus without complications; I10 Essential (primary) hypertension; F41.9 Anxiety disorder, unspecified; Z87.891 Personal history of nicotine dependence; Z79.84 Long term (current) use of oral hypoglycemic drugs; Z79.899 Other long term (current) drug therapy
CPT/HCPCS: 71046; 94640; 96372; 99283; 99285; J2930

== ENCOUNTER 2023-04-12 12:18 | Outpatient (REF) | payer OTHER, SELFPAY ==
--- NOTE | ~2023-04-12 | MM_ITS ---
EXAMINATION: MM SCREENING DIGITAL BREAST TOMOSYNTHESIS, BILATERAL CLINICAL INFORMATION: Screening. Asymptomatic. The patient is status post bilateral breast reduction. COMPARISON: Mammography: There are no prior mammograms for comparison. The patient's prior mammograms are unavailable. TECHNIQUE: Digital breast tomosynthesis is performed in both the craniocaudal and mediolateral oblique views along with computer-aided detection (CAD). Synthesized 2D images are generated from the tomosynthesis. FINDINGS: There are scattered areas of fibroglandular density (ACR BI-RADS breast composition Category b). There are no significant masses, abnormal calcifications, or other abnormalities. There is a tissue marker present in the left breast from prior benign percutaneous biopsy. MM/MM tomosynthesis screening BI IMPRESSION: No mammographic evidence of malignancy. ASSESSMENT: BI-RADS BI-RADS 2 - Benign Findings RECOMMENDATION: Routine annual mammography screening. 1 year F/U This examination should not preclude the clinical evaluation of a suspicious palpable abnormality. This patient's information was entered into a reminder system with a target due date for their next mammogram.
== END 2023-04-12 12:19 | disposition home or self-care (01) ==
LOC: HO.MAMMO 12:18
PROVIDERS: PCP Family Medicine; Visit Provider Family Medicine
DX: Z12.31 Encounter for screening mammogram for malignant neoplasm of breast (principal)
CPT/HCPCS: 77063; 77067

== ENCOUNTER → 2023-04-12 12:45 | Outpatient (BNV) | payer OTHER, SELFPAY | PROVIDERS: PCP Family Medicine; Visit Provider Radiology Diagnostic Radiology | DX: Z12.31 Encounter for screening mammogram for malignant neoplasm of breast (principal) | CPT/HCPCS: 77063; 77067 ==

== ENCOUNTER 2023-06-01 08:50 | Emergency (ER) | payer OTHER, SELFPAY ==
--- NOTE | ~2023-06-01 | XR_ITS ---
EXAMINATION: XR CHEST CLINICAL INFORMATION: Shortness of breath. COMPARISON: Chest radiograph 04/10/2023. TECHNIQUE: Frontal view of the chest was obtained. FINDINGS: Stable appearance of the cardiomediastinal silhouette with redemonstration of asymmetric prominence along the right inferior cardiomediastinal border. No focal airspace opacities, pleural effusion or pneumothorax. No acute osseous findings. XR/XR chest 1V IMPRESSION: 1. No acute cardiopulmonary findings. 2. Stable asymmetric prominence along the right inferior cardiomediastinal border, possibly related with a prominent epicardial fat pad or diaphragmatic eventration. Recommend further evaluation with outpatient CT chest without IV contrast.
--- NOTE | ~2023-06-01 | CT_ITS ---
EXAMINATION: CT ANGIOGRAM OF THE CHEST WITH AND WITHOUT CONTRAST (CT PULMONARY ANGIOGRAM FOR PE) CLINICAL INFORMATION: Reason for Exam + dimer sob COMPARISON: None available. TECHNIQUE: Prior to contrast administration, noncontrast localization images were obtained. Subsequently, multidetector volumetric imaging was performed from the thoracic inlet to below the diaphragms following the administration of 65 mL Omnipaque 350 intravenous contrast. No contrast reaction reported Sagittal, coronal, and MIP oblique sagittal reformatted images were obtained on the CT workstation, uploaded to PACS, and reviewed. This CT examination was performed using dose optimization techniques as appropriate, variously including the following: *Automated exposure control *Adjustment of mA and/or kV according to patient size (this includes techniques or standardized protocols for targeted exams where dose is matched to indication/reason for exam; i.e. extremities or head) *Use of iterative reconstruction technique Total exam dose-length product 140 mGy-cm FINDINGS: QUALITY OF STUDY/CONTRAST BOLUS: Satisfactory. PULMONARY ARTERIES: No pulmonary emboli. THORACIC AORTA: No aneurysm. LUNG: No focal consolidation or nodule identified. PLEURA: No pleural effusion or pneumothorax. MEDIASTINUM: Normal heart size. No pericardial effusion. No hilar or mediastinal lymphadenopathy by size criteria. No evidence of septal bowing or right heart strain. CORONARY ARTERY CALCIFICATION: None visualized on this study. CHEST WALL/AXILLA: No axillary or internal mammary lymphadenopathy by size criteria. OSSEOUS STRUCTURES: No acute or suspicious finding. UPPER ABDOMEN: Suspect fatty infiltration of the liver. No reflux of contrast into the hepatic veins to suggest elevated right heart pressures. CT/CT angio chest PE protocol IMPRESSION: No evidence of pulmonary embolism. No acute finding. VTE: negative
[2023-06-01 09:07] VITALS: BP 132/72; PULSE 88; RESP 25; TEMP 36.7; O2SAT 94; BMI 38.0
--- NOTE | 2023-06-01 09:07 | ECG_ITS ---
Test Reason : SOB Blood Pressure : / mmHG Vent. Rate : 099 BPM Atrial Rate : 099 BPM P-R Int : 144 ms QRS Dur : 090 ms QT Int : 364 ms P-R-T Axes : 076 052 055 degrees QTc Int : 467 ms Normal sinus rhythm Normal ECG No previous ECGs available Referred By: Lawanda Davison Electronically Signed By:Gerardo Dodson
--- NOTE | 2023-06-01 09:07 | ED.GENADULT ---
HPI - General Adult General Chief complaint: Dyspnea Stated complaint: asthma/ SOB Time Seen by Provider: 06/01/23 09:07 Source: patient Mode of arrival: ambulatory Limitations: no limitations History of Present Illness HPI narrative: 57 y/o F patient; PMH HTN, asthma, diabetes; presents for increased difficulty breathing, wheezing, cough ( at times productive) . Feels like typical asthma. This has been going on for a few weeks. Has used home inhalers with little to no relief. She does not currently follow with pulmonology. She denies any prior ICU admissions or intubations. She has been an ex-smoker for 3 years. She otherwise denies: chest pain, fever or chills, nausea or vomiting, abdominal pain. Reports she traveled to [facility] in early May and had a influenza + sick contact ( grandson) about a week ago. Related Data Home Medications Medication Instructions Recorded Confirmed albuterol sulfate 90 mcg/actuation 1 inh inhalation QID 09/26/22 aerosol inhaler (Ventolin HFA) Previous Rx's Medication Instructions Recorded lisinopril 5 mg tablet 5 mg PO DAILY 90 days #90 tabs 09/27/22 metformin 500 mg tablet 500 mg PO DAILY 90 days #90 tabs 09/27/22 budesonide-formoterol HFA 80 1 inh inhalation BID 30 days #10.2 12/25/22 mcg-4.5 mcg/actuation aerosol grams inhaler (Symbicort) nitrofurantoin 100 mg PO Q12H 5 days #10 caps 03/06/23 monohydrate/macrocrystals 100 mg capsule (Macrobid) albuterol sulfate 90 mcg/actuation 2 puff inhalation Q6-8H PRN 03/11/23 aerosol inhaler (Ventolin HFA) wheezing 0 days #8.5 grams fluticasone fur. 200 mcg-umeclid 1 inh inhalation DAILY 28 days #28 03/12/23 62.5 mcg-vilant 25 mcg ea inhalat.powder (Trelegy Ellipta) omeprazole 20 mg capsule,delayed 20 mg PO DAILY 90 days #90 caps 03/12/23 release fluticasone 500 mcg-salmeterol 50 1 inh inhalation Q12H 30 days #60 03/14/23 mcg/dose blistr powdr for ea inhalation (Wixela Inhub) ipratropium bromide 17 2 puff inhalation Q8H #12.9 grams 03/19/23 mcg/actuation HFA aerosol inhaler (Atrovent HFA) prednisone 50 mg tablet 50 mg PO DAILY 5 days #5 tabs 03/19/23 albuterol sulfate 90 mcg/actuation 2 puff inhalation QID #8.5 grams 04/10/23 aerosol inhaler prednisone 20 mg tablet 20 mg PO DAILY 12 days #26 tabs 04/10/23 albuterol sulfate 2.5 mg/3 mL 2.5 mg (3 mL) inhalation Q4-6H PRN 05/28/23 (0.083 %) solution for nebulization shortness of breath or wheezing 30 days #180 mL albuterol sulfate 90 mcg/actuation 2 inh inhalation Q4-6H PRN 06/01/23 breath activated powder inhaler shortness of breath or wheezing #1 ea doxycycline hyclate 100 mg capsule 100 mg PO BID 10 days #20 caps 06/01/23 prednisone 20 mg tablet 40 mg (2 x 20 mg) PO DAILY 5 days 06/01/23 #10 tabs Allergies Allergy/AdvReac Type Severity Reaction Status Date / Time No Known Allergies Allergy Verified 04/10/23 09:59 Review of Systems Review of Systems: Constitutional : No Weight loss, No Fever, No Chills, No Fatigue, No Malaise ENT/Mouth : No sore throat, No Rhinorrhea Eyes: No Eye Pain, No Swelling, No Redness Cardiovascular : No Chest Pain, + SOB, No Dyspnea on Exertion, No Orthopnea, No Edema, No Palpitations Respiratory : + Cough, + Sputum, + Wheezing Gastrointestinal : No Nausea, No Vomiting, No Diarrhea, No Constipation, No abdominal Pain, No Hematochezia, No Melena Genitourinary : No Dysuria, No Urinary Frequency, No Hematuria, Musculoskeletal : No joint pain, No Myalgias, No Joint Swelling Skin : No Skin Lesions, No rash Neuro : No Weakness, No Numbness, No Dizziness, No Headache Psych : No Anxiety/Panic, No Depression All other systems reviewed and are negative Yes all other systems are reviewed and are negative [facility] Past Medical History Attestation statement: The following information was validated with the patient. Source: old records reviewed and nursing notes reviewed Medical History Foul smelling urine Obesity Elevated fasting glucose Foot pain Screening for cervical cancer Breast cancer screening Screening for colon cancer Adult general medical examination Rash Laboratory exam ordered as part of routine general medical examination Prediabetes Asthma Kidney stone Hernia Surgical History History of ureteroscopy History of herniorrhaphy Family History Family History Maternal Grandmother Alzheimer's dementia Osteoarthritis Father Diabetes Social History Social History Housing: Apartment Are you a primary senior resident care director to a significant other at home: No Do you presently have visiting nurse or other home services: No Patient Tobacco Use Status: Former Tobacco user Quit Date: 3 Years ago Tobacco use type: Cigarette Cigarette Packs Per Day: 1 (1 pack per 2 days) Cigarettes Per Day: 10 Smoked in Last 30 Days: No e-Cigarette/Vaping Use: Never Used Second Hand Smoke Exposure: Yes (Due to where patient lives.) Use of substances other than those prescribed or required for medical reasons: No Advance Directives: No service: No Current occupational status: unemployed Current occupational exposures/hazards: No Cognitive needs: No Hearing needs: Yes Vision needs: Yes Physical Exam ED Vital Signs: Vital Signs - 24 hr 06/01/23 09:07 06/01/23 09:12 06/01/23 09:16 Temperature 98.1 F 98.1 F Pulse Rate 88 90 67 Respiratory Rate 25 H 26 H 18 Blood Pressure 132/72 115/68 Pulse Oximetry 94 95 Oxygen Delivery Method Room Air Room Air 06/01/23 10:44 06/01/23 12:33 Temperature 98.1 F Pulse Rate 94 98 Respiratory Rate 20 18 Blood Pressure 109/55 L 121/65 Pulse Oximetry 96 96 Oxygen Delivery Method Room Air Room Air BMI result Body Mass Index 38.0 Course Reevaluation(s) Reevaluation #1: CBC unremarkable. Chemistry no acute findings requiring acute intervention. Slightly elevated transaminases likely secondary to viral illness. Troponin negative, nonischemic EKG. Normal BNP. Patient is saturating well on room air feeling better. D-dimer is elevated , CTA done without blood clot. This is likely asthma with superimposed bronchitis. Will treat with antibiotics, steroids. Patient feeling well able to speak in full sentences without difficulty, saturating well on room air 96-97% much improved from initially. At this time patient to be discharged home. Educated patient on diagnosis and treatment plan, answered all question, patient verbalizes understanding. At this time patient will be discharged home, advised to return with new or worsening symptoms. Educated on worrisome signs and symptoms and when to return. At this time I feel comfortable discharge home. Time: 14:46 Medications Administered Discontinued Medications Generic Name Dose Route Start Last Admin Trade Name Jeremiah PRN Reason Stop Dose Admin Albuterol Sulfate 2.5 mg/ 0 mg 06/01/23 09:10 06/01/23 09:13 Albuterol/Ipratropium 3 ml INHALE 06/01/23 09:11 1 dose ONCE ONE Administration Iohexol 65 ml 06/01/23 13:21 06/01/23 13:22 Iohexol 350 Mg/Ml 100 Ml Infus..Btl IV 06/01/23 13:22 65 ml ONCE ONE Administration Methylprednisolone Sodium Succinate 125 mg 06/01/23 09:15 06/01/23 09:24 Methylprednisolone Sod Succ 125 Mg/2 Ml Vial IVPUSH 06/01/23 09:16 125 mg ONCE ONE Administration Medical Decision Making Medical Decision Making [facility] Narrative: 0910 58-year-old female presents with complaints of shortness of breath and wheezing history of asthma. Feels like typical asthma exacerbation Physical exam wheezing bilaterally on expiration. Saturating well on room air. Patient physical exam concerning for asthma versus chronic lung condition versus viral illness vs bronchitis. Unlikely acute respiratory distress, pneumonia, PE, ACS, dissection, CHF Plan labs, imaging, viral testing, bronch protocol Differential Diagnosis Differential Diagnoses: The differential diagnosis associated with the presentation includes Patient physical exam concerning for asthma versus chronic lung condition versus viral illness vs bronchitis. Unlikely acute respiratory distress, pneumonia, PE, ACS, dissection, CHF Admission/Observation Consideration of admission/observation: Escalation of care including admission/observation considered Lab Data [facility] Lab Attestation statement: I reviewed the patient's lab results. 06/01/23 09:57 06/01/23 09:57 Labs: Lab Results 06/01/23 06/01/23 06/01/23 Range/Units 09:48 09:57 09:57 WBC 8.3 (4.8-10.8) X10*3/uL RBC 4.21 (4.20-5.50) X10*6/uL Hgb 12.8 (12.0-16.0) g/dl Hct 39.0 (37.0-47.0) % MCV 92.6 (80.0-98.0) fL MCH 30.4 (27.0-33.0) pg MCHC 32.8 (31.0-35.0) g/dl RDW 13.9 (11.0-16.0) % Plt Count 338 (160-400) X10*3/uL MPV 9.3 L (9.4-12.3) fL Immature Gran % (Auto) 0.5 H (0.0-0.4) % Neut % (Auto) 43.3 L (45-73) % Lymph % (Auto) 39.3 (20-40) % [place] % (Auto) 10.9 (2-11) % Eos % (Auto) 5.3 H (0-4) % Baso % (Auto) 0.7 (0-2) % Lymph # (Auto) 3.3 (1.2-4.9) X10*3/uL [place] # (Auto) 0.9 (0.1-1.2) X10*3/uL Eos # (Auto) 0.4 (0.0-0.4) X10*3/uL Baso # (Auto) 0.1 (0.0-0.2) X10*3/uL Abs Immat Gran (auto) 0.04 H (0.00-0.03) X10*3/uL Absolute Neuts (auto) 3.6 (2.0-8.3) x10*3/uL Absolute Nucleated RBC 0.000 (0.0-0.012) X10*3/uL Nucleated RBC % (auto) 0.0 (0.0-0.2) /100WBC PT 12.7 (11.1-13.3) SEC INR 1.0 (0.9-1.1) D-Dimer High Sensitivty 1925 Cancelled NG/ML Sodium 143 (135-145) mmol/L Potassium 4.0 (3.3-5.1) mmol/L Chloride 109 H (96-108) mmol/L Carbon Dioxide 24 (22-29) mmol/L Anion Gap 14 (12-20) BUN 15 (9-16) mg/dL Creatinine 0.83 (0.5-1.4) mg/dL Estim Creat Clear Calc 78.0 Estimated GFR > 60 Random Glucose 119 H (60-115) mg/dL Calcium 9.3 (8.4-10.2) mg/dL Magnesium 2.1 (1.6-2.6) mg/dL Total Bilirubin 0.4 (0.0-1.0) mg/dL AST 32 H (5-31) U/L ALT 44 H (0-31) U/L Alkaline Phosphatase 67 (39-117) U/L Troponin I High Sens < 2.7 (<3.5-17.0) ng/L B-Natriuretic Peptide < 10 (<100) pg/mL Total Protein 7.5 (6.5-8.0) g/dL Albumin 4.1 (3.5-5.0) g/dL COVID-19 (JAROCHO) Negative (Negative) COVID-19 Clin Com See Note Influenza Type A (JORGE) Negative (Negative) Influenza Type B (JORGE) Negative (Negative) Influenza A & B Note See Note Independent Interpretation I performed an independent interpretation of an: Plain X-Ray ( XR/XR chest 1V IMPRESSION: 1. No acute cardiopulmonary findings. 2. Stable asymmetric prominence along the right inferior cardiomediastinal border, possibly related with a prominent epicardial fat pad or diaphragmatic eventration. Recommend further evaluation with outpatient CT chest without IV ) and CT Scan ( CT/CT angio chest PE protocol IMPRESSION: No evidence of pulmonary embolism. No acute finding. VTE: negative) Radiology Impression Discussion of test interpretation with radiology: I have reviewed the radiologist's reading. Discharge Plan Discharge Clinical Impression: Asthma exacerbation, Bronchitis Patient Disposition: Home, Self-Care Instructions: Asthma (ED), Acute Bronchitis (ED) Additional Instructions: Take your medications as prescribed. If you were prescribed antibiotics today, it is important that you take your medication to their entirety, do not skip any doses, do not finish them early. Follow-up with your primary care provider this week. Return to the emergency department with new or worsening symptoms. Such as fevers, chills, chest pain, shortness of breath, nausea, vomiting, dizziness, headache, vision changes, lethargy In case of emergency call 911 XR/XR chest 1V IMPRESSION: 1. No acute cardiopulmonary findings. 2. Stable asymmetric prominence along the right inferior cardiomediastinal border, possibly related with a prominent epicardial fat pad or diaphragmatic eventration. Recommend further evaluation with outpatient CT chest without IV contrast. CT/CT angio chest PE protocol IMPRESSION: No evidence of pulmonary embolism. No acute finding. VTE: negative [place] susna medicamentos seg?n lo recetado. Si hoy te recetaron antibi?ticos, es importante que tomes tu medicaci?n en waite totalidad, no te saltes ninguna dosis, no las termines antes de tiempo. Pato un seguimiento con waite proveedor de atenci?n primaria esta semana. Regrese al departamento de emergencias si los s?ntomas son nuevos o empeoran. [place] fiebre, escalofr?os, dolor de pecho, dificultad para respirar, n?useas, v?mitos, mareos, dolor de lindy, cambios en la visi?n, letargo. En byron de emergencia llamar al 911 XR/XR cofre 1V IMPRESI?N: 1. Sin hallazgos cardiopulmonares agudos. 2. Prominencia zaina?trica estable a lo nancy de la parte inferior derecha borde cardiomediast?edwige, posiblemente relacionado con un epic?rdico prominente almohadilla grasa o eventraci?n diafragm?bee. Recomendar elisa evaluaci?n adicional con TC de t?rax para pacientes ambulatorios sin contraste intravenoso. Protocolo de PE de t?rax con angioTC/TC IMPRESI?N: No hay evidencia de embolia pulmonar. Olivia?n hallazgo shadi. TEV: negativo Prescriptions: New doxycycline hyclate 100 mg capsule 100 mg PO BID 10 Days Qty: 20 0RF prednisone 20 mg tablet 40 mg PO DAILY 5 Days Qty: 10 0RF albuterol sulfate 90 mcg/actuation aerosol powdr breath activated 2 inh inhalation Q4-6H PRN (Reason: shortness of breath or wheezing) Qty: 1 0RF No Action metformin 500 mg tablet 500 mg PO DAILY 90 Days Qty: 90 3RF lisinopril 5 mg tablet 5 mg PO DAILY 90 Days Qty: 90 2RF budesonide-formoterol [Symbicort] 80-4.5 mcg/actuation HFA aerosol inhaler 1 inh inhalation BID 30 Days Qty: 10.2 3RF albuterol sulfate [Ventolin HFA] 90 mcg/actuation HFA aerosol inhaler 2 puff inhalation Q6-8H PRN (Reason: wheezing) Qty: 8.5 3RF Trelegy Ellipta 200-62.5-25 mcg blister with device 1 inh inhalation DAILY 28 Days Qty: 28 3RF omeprazole 20 mg capsule,delayed release(DR/EC) 20 mg PO DAILY 90 Days Qty: 90 2RF fluticasone propion-salmeterol [Wixela Inhub] 500-50 mcg/dose blister with device 1 inh inhalation Q12H 30 Days Qty: 60 3RF albuterol sulfate 2.5 mg /3 mL (0.083 %) solution for nebulization 2.5 mg inhalation Q4-6H PRN (Reason: shortness of breath or wheezing) 30 Days Qty: 180 3RF prednisone 20 mg tablet 20 mg PO DAILY 12 Days Qty: 26 0RF Rx Instructions: Take 3 tablets for 5 days THEN; Take 2 tablets for 4 days THEN; Take 1 tablet for 3 days albuterol sulfate 90 mcg/actuation HFA aerosol inhaler 2 puff inhalation QID Qty: 8.5 0RF prednisone 50 mg tablet 50 mg PO DAILY 5 Days Qty: 5 0RF Atrovent HFA 17 mcg/actuation HFA aerosol inhaler 2 puff inhalation Q8H Qty: 12.9 0RF nitrofurantoin monohyd/m-cryst [Macrobid] 100 mg capsule 100 mg PO Q12H 5 Days Qty: 10 0RF Rx Instructions: must administer with a meal/food albuterol sulfate [Ventolin HFA] 90 mcg/actuation HFA aerosol inhaler 1 inh inhalation QID Referrals: [facility] [Provider Group] - 1 week Oj Aparicio MD [Primary Care Provider] - 2 days Stand Alone Forms: Work/School Release
[2023-06-01 09:12] VITALS: BP 115/68; PULSE 90; RESP 26; TEMP 36.7; O2SAT 95
[2023-06-01] MEDS: Albuterol Sulfate 2.5 MG, Albuterol/Iprat 2.5/0.5MG 3 ML 3 ML INHALE (09:13)
[2023-06-01 09:16] VITALS: PULSE 67; RESP 18; O2SAT 97
--- NOTE | 2023-06-01 09:16 | PC.NURSE ---
Pt awake, alert and oriented. Yoruba speaking only, counter waiter utilized. Breathing elevated, noted to be labored with positive coughing. Pt noted to be more comfortable in upright position. Pt reports SOB and cough X1 week, hx of asthma, using inhaler and neb at home with no improvements. Bilat inspiratory and expiratory wheezing noted. Pt placed on bedside environmental monitoring specialist, IV established. RT and provider at bedside.
[2023-06-01] MEDS: methylPREDNISolone Sod Succ 125 MG/2 ML VIAL IVPUSH (09:24)
--- NOTE | 2023-06-01 09:34 | PC.NURSE ---
Pt on neb treatment initiated by RT. Pt medicated per MAR.
[2023-06-01 10:02] LABS: MANUAL DIFF FLAG NO
[2023-06-01 10:05] LABS: Basophils Absolute Auto 0.1 X10*3/uL (0.0-0.2); Basophils Percent Auto 0.7 % (0-2); Eosinophils Absolute Auto 0.4 X10*3/uL (0.0-0.4); Eosinophils Percent Auto 5.3 % (0-4); Hemoglobin 12.8 g/dl (12.0-16.0); Imm Gran Abs Auto 0.04 X10*3/uL (0.00-0.03); Imm Gran Pct Auto 0.5 % (0.0-0.4); Lymphocytes Absolute Auto 3.3 X10*3/uL (1.2-4.9); Lymphocytes Percent Auto 39.3 % (20-40); Mean Corpuscular HGB Conc 32.8 g/dl (31.0-35.0); Mean Corpuscular Hemoglobin 30.4 pg (27.0-33.0); Mean Corpuscular Volume 92.6 fL (80.0-98.0); Mean Platelet Volume 9.3 fL (9.4-12.3); Monocytes Absolute Auto 0.9 X10*3/uL (0.1-1.2); Monocytes Percent Auto 10.9 % (2-11); Neutrophils Absolute Auto 3.6 x10*3/uL (2.0-8.3); Neutrophils Percent Auto 43.3 % (45-73); Platelet Count 338 X10*3/uL (160-400); Red Blood Count 4.21 X10*6/uL (4.20-5.50); Red Cell Distribution Width 13.9 % (11.0-16.0); White Blood Count 8.3 X10*3/uL (4.8-10.8)
[2023-06-01 10:10] LABS: Prothrombin Time 12.7 SEC (11.1-13.3)
[2023-06-01 10:12] LABS: D Dimer High Sensitivity 1925 NG/ML
[2023-06-01 10:20] LABS: Magnesium 2.1 mg/dL (1.6-2.6)
[2023-06-01 10:21] LABS: Alanine Aminotransferase 44 U/L (0-31); Albumin Level 4.1 g/dL (3.5-5.0); Alkaline Phosphatase 67 U/L (39-117); Anion Gap 14 (12-20); Aspartate Amino Transferase 32 U/L (5-31); Bilirubin Total 0.4 mg/dL (0.0-1.0); Blood Urea Nitrogen 15 mg/dL (9-16); Calcium 9.3 mg/dL (8.4-10.2); Carbon Dioxide 24 mmol/L (22-29); Chloride 109 mmol/L (96-108); Estimated Glomerular Filt Rate > 60; Glucose Random 119 mg/dL (60-115); Sodium 143 mmol/L (135-145); Total Protein 7.5 g/dL (6.5-8.0)
[2023-06-01 10:27] LABS: B Type Natriuretic Peptide < 10 pg/mL (<100)
[2023-06-01 10:35] LABS: Troponin-I High Sensitivity < 2.7 ng/L (<3.5-17.0)
[2023-06-01 10:37] LABS: COVID-19 Test Negative (Negative); IDNOW Serial# 08D9AD1C
[2023-06-01 10:38] LABS: IDNOW Serial# 152EDE1D; Influenza A Negative (Negative); Influenza B2 Negative (Negative)
[2023-06-01 10:44] VITALS: BP 109/55; PULSE 94; RESP 20; TEMP 36.7; O2SAT 96
--- NOTE | 2023-06-01 10:45 | PC.NURSE ---
Pt awake and alert, breathing even and unlabored at this time. Pt reports feeling better overall after treatments. Pt resting in bed.
[2023-06-01 12:33] VITALS: BP 121/65; PULSE 98; RESP 18; O2SAT 96
[2023-06-01] MEDS: iohexoL 350 MG/ML 100 ML INFUS..BTL 65 ML IV (13:22)
[2023-06-01 14:53] VITALS: BP 132/90; PULSE 98; RESP 18; O2SAT 96
== END 2023-06-01 14:59 | disposition home or self-care (01) ==
PROVIDERS: Physician Assistant; Emergency Provider Emergency Medicine; PCP Family Medicine
DX: J45.901 Unspecified asthma with (acute) exacerbation (principal); R06.02 Shortness of breath; Z11.52 Encounter for screening for COVID-19
CPT/HCPCS: 71045; 71275; 80053; 83735; 83880; 84484; 85025; 85379; 85610; 87502; 87635; 93005; 94640; 96374; 99284; 99285; J2930; Q9967

== ENCOUNTER → 2023-06-01 09:07 | Outpatient (BNV) | payer OTHER, SELFPAY | PROVIDERS: Emergency Provider Emergency Medicine; PCP Family Medicine; Visit Provider Internal Medicine Cardiovascular Disease | DX: R06.02 Shortness of breath (principal) | CPT/HCPCS: 93010 ==

== ENCOUNTER 2023-06-05 14:56 | Outpatient (AMB) | payer OTHER, SELFPAY ==
--- NOTE | 2023-06-05 15:49 | MHC.PC.OV ---
Vital Signs 06/05/23 15:50 Height 5 ft 2 in Weight 202 lb 6 oz BMI 37.0 BP 148/73 H Blood Pressure Location Lt brachial Pulse 103 H Pulse Source Pulse Oximeter Pulse Oximetry (%) 95 Oxygen Delivery Method Room Air Intake Visit Reasons: f/u diabetes Intake Note: Patient is following up on diabetes today. She is would like a prescription for a nebulizer, and a refill on her inhaler, Lisinopril, and Metformin. She would like referral to [facility]. Insurance Verification Rep Required: Yes Insurance Verification Rep Name: [id number] Allergies No Known Allergies Allergy (Verified 06/05/23 15:55) Medication List - Last Reconciled 06/05/23 by Oj Aparicio MD albuterol sulfate 90 mcg/actuation 2 puffs inhalation QID albuterol sulfate 90 mcg/actuation 2 inhalations inhalation Q4-6H PRN albuterol sulfate 2.5 mg (3 mL) inhalation Q4-6H PRN 30 days albuterol sulfate 90 mcg/actuation (Ventolin HFA) 1 inh inhalation QID albuterol sulfate 90 mcg/actuation (Ventolin HFA) 2 puffs inhalation Q6-8H PRN 0 days budesonide-formoterol 80-4.5 mcg/actuation (Symbicort) 1 inh inhalation BID 30 days doxycycline hyclate 100 mg PO BID 10 days fluticasone propion-salmeterol 500-50 mcg/dose (Wixela Inhub) 1 inh inhalation Q12H 30 days yanctdtntbj-sanakrmdc-vumgrsyo 200-62.5-25 mcg (Trelegy Ellipta) 1 inh inhalation DAILY 28 days ipratropium bromide 17 mcg/actuation (Atrovent HFA) 2 puffs inhalation Q8H lisinopril 5 mg PO DAILY 90 days metformin 500 mg PO DAILY 90 days nitrofurantoin monohyd/m-cryst 100 mg (Macrobid) 100 mg PO Q12H 5 days omeprazole 20 mg PO DAILY 90 days prednisone 50 mg PO DAILY 5 days prednisone 20 mg PO DAILY 12 days prednisone 40 mg (2 x 20 mg) PO DAILY 5 days Tobacco use date assessed: 03/06/23 Dental Screening Dental Screen Date: 06/05/23 Did you have a dental visit in the last 12 months?: Yes Did you have a dental problem in the last 6 months where you did not have access to dental care?: No Was dental information given to patient?: Patient has dentist HPI f/u diabetes HPI Details 58 y/o female presents to f/u diabetes. Had recently been to the emergency department for an asthma exacerbation. CT showed no evidence of pulmonary embolism or acute findings. Last A1c 02/01/23 was 5.4%. A1c today 06/05/23 is 5.1%. She is on metformin. She states she is only on Ventolin for her asthma. Blood pressure today elevated at 148/73, 103p. [facility] Medical History Foul smelling urine Obesity Elevated fasting glucose Foot pain Screening for cervical cancer Breast cancer screening Screening for colon cancer Adult general medical examination Rash Laboratory exam ordered as part of routine general medical examination Prediabetes Asthma Kidney stone Hernia Surgical History History of ureteroscopy History of herniorrhaphy Family History Maternal Grandmother Alzheimer's dementia Osteoarthritis Father Diabetes Social History Caregiver staying overnight: No Housing: Apartment Are you a primary client care specialist to a significant other at home: No Do you presently have visiting nurse or other home services: No 75 years or older and lives alone: No Patient Tobacco Use Status: Former Tobacco user Quit Date: 3 Years ago Tobacco use type: Cigarette Cigarette Packs Per Day: 1 (1 pack per 2 days) Cigarettes Per Day: 10 e-Cigarette/Vaping Use: Never Used Second Hand Smoke Exposure: Yes (Due to where patient lives.) service: No Current occupational status: unemployed Current occupational exposures/hazards: No Cognitive needs: No Hearing needs: Yes Vision needs: Yes Questionnaire Thrive Questionnaire Date Thrive assessed: 09/26/22 ROBINSON-7 AMB Questionnaire ROBINSON-7 Date ROBINSON - 7 assessed: 03/06/23 Source: Developed by Drs. Irwin Disla, Yany Bower, Ronen Cloud and colleagues, with an educational ros from [employer]. ACT Questionnaire In the past 4 weeks, how much of the time did your asthma keep you from getting as much done at work, school or at home?: Most of the time During the past 4 weeks, how often have you had shortness of breath?: Once a day During the past 4 weeks, how often did your asthma symptoms wake you up at night or earlier than usual in the morning?: 4 or more nights a week During the past 4 weeks, how often have you had to use your rescue inhaler or nebulizer medication?: More than 3 times per day How would you rate your asthma control during the past 4 weeks?: Poorly controlled Score: 8 Review of Systems Const Denies chills, Denies fatigue, Denies fever(s), Denies headache(s) and Denies weakness ENT Denies dizziness and Denies headache(s) Card Denies chest pain, Denies lightheadedness, Denies dyspnea and Denies other (Palpitations) Resp Denies cough, Denies dyspnea, Denies wheezing and Denies other ( shortness of breath) Musc Denies numbness and Denies tingling Neuro Denies dizziness, Denies headache(s), Denies numbness, Denies tingling, Denies paresthesias and Denies weakness Psych Denies anxiety and Denies depression Endo Denies fatigue Aller/Immun Denies wheezing Physical exam (Primary Care) Vital Signs: Last Vital Signs Pulse 103 H 06/05/23 15:50 BP 148/73 H 06/05/23 15:50 Pulse Ox 95 06/05/23 15:50 Oxygen Delivery Method Room Air 06/05/23 15:50 BMI result Body Mass Index 37.0 Tobacco/Smoking Status: Tobacco use Status Tobacco use date assessed 03/06/23 06/05/23 16:01 Patient Tobacco Use Status Former Tobacco user 06/05/23 16:01 Tobacco use type Cigarette 06/05/23 16:01 e-Cigarette/Vaping Use Never Used 06/05/23 16:01 Thrive Assessment: Date of Thrive Assessment Date Thrive assessed 09/26/22 06/05/23 16:01 Const General: no acute distress and well developed Nutritional Appearance: well nourished Orientation/consciousness: patient oriented x3 HENMT Head: Yes normocephalic and Yes atraumatic Eyes General: appearance normal, both eyes and all related structures Pupils: Equal, round and reactive pupils present EOM: EOMs intact bilaterally Resp Other: Squeaks and wheezes Effort & Inspection: normal respiratory effort Auscultation: not clear to auscultation bilaterally Cardio Rate: regular rate Rhythm: regular rhythm Heart sounds: S1 normal heart sound present, S2 normal heart sound present, no gallops, no murmurs and no rubs Neuro General: patient oriented x3 and gait normal Cranial nerves: Yes Equal, round and reactive pupils present Psych Affect: normal affect Assessment and Plan Assessment & Plan (1) Diabetes: Code(s): E11.9 - Type 2 diabetes mellitus without complications Plan: A1c?5.1%?on?metformin.??Goal?is?less?than?7.0% Good?control Continue?current?medication (2) Asthma: Code(s): J45.909 - Unspecified asthma, uncomplicated Plan: Asthma?which?is?not?fully?controlled?and?patient?had?a?recent?asthma?exacerbation?with?bronchitis. Finish?all?doxycycline?and?prednisone?which?was?provided?at?the?emergency?department. Patient?should?have?a?controller?medications?so?I?have?refilled?Trelegy Continue?albuterol?via?Ventolin?or?nebulizer?p.r.n.?wheezing/SOB?symptoms. (3) Hypertension: Code(s): I10 - Essential (primary) hypertension Plan: Blood?pressure?is?too?high?and?heart?rate?is?somewhat?elevated. She?is?on?lisinopril.??Will?add?a?low?dose?of?diltiazem?which?will?help?to?decrease?heart?rate?without?exacerbating?asthma. Medications: New diltiazem HCl ER 60 mg PO QAM 30 caps 2RF 30 days nebulizers (Compact Compressor Nebulizer) Use As directed, 4 times a day as needed for Wheeze/SOB, 999 days 1 ea 0RF J45.909 - Unspecified asthma, uncomplicated albuterol sulfate 2.5 mg (3 mL) inhalation Q4-6H PRN 180 mL 2RF shortness of breath or wheezing 30 days Refilled wobhctuohwo-fsdukhcgp-ozerxfbu 200-62.5-25 mcg (Trelegy Ellipta) 1 inh inhalation DAILY 28 ea 3RF 28 days Coding Level of Care Code Est Pt Level 4 (39509) Diagnoses Diabetes E11.9 Asthma J45.909 Hypertension I10
[2023-06-05 15:50] VITALS: BP 148/73; PULSE 103; O2SAT 95; BMI 37.0
== END 2023-06-05 16:31 | disposition home or self-care (01) ==
PROVIDERS: PCP Family Medicine; Visit Provider Family Medicine
DX: E11.9 Type 2 diabetes mellitus without complications (principal); J45.909 Unspecified asthma, uncomplicated; I10 Essential (primary) hypertension
CPT/HCPCS: 83036; 99214

== ENCOUNTER 2023-06-16 10:38 | Emergency (ER) | payer OTHER, SELFPAY ==
[2023-06-16] VITALS (7 sets, daily range): BP systolic 122–148; BP diastolic 66–84; PULSE 89–115; RESP 16–23; TEMP 36.6–36.8; O2SAT 93–97; BMI 36.5
--- NOTE | ~2023-06-16 | XR_ITS ---
EXAMINATION: XR CHEST CLINICAL INFORMATION: Dyspnea COMPARISON: CT angiography chest 06/01/2023. Chest radiograph 06/01/2023 TECHNIQUE: 2 views of the chest were obtained. FINDINGS: Normal appearance of the cardiomediastinal structures. Incidental note is again made of prominence of the epicardial fat adjacent to the right margin of the heart. No effusions or pneumothoraces. Normal pattern of pulmonary vasculature. No focal pulmonary consolidation. Minimal multilevel anterior endplate osteophytosis of the thoracic spine. XR/XR chest 2V IMPRESSION: No acute cardiopulmonary abnormalities.
[2023-06-16] MEDS: Albuterol Sulfate 2.5 MG, Albuterol/Iprat 2.5/0.5MG 3 ML 3 ML INHALE (10:48)
--- NOTE | 2023-06-16 10:49 | ED_ITS ---
HPI - General Adult General Chief complaint: Asthma Stated complaint: Asthma Time Seen by Provider: 06/16/23 10:48 Source: patient and sign language interpreter Mode of arrival: ambulatory Limitations: language barrier History of Present Illness HPI narrative: Patient is a 58-year-old Welsh-speaking female presenting to the emergency department with complaint of wheezing, shortness of breath and cough productive of clear sputum since Saturday. She denies fevers. Denies chest pain or palpitations. Feels that her symptoms are exacerbated by the carpet at her home, states her symptoms improve when she is at her sister's home. Has been using her albuterol nebulizer at home with little relief. Denies history of exacerbations requiring intubation. MD complaint: shortness of breath Onset (ago): day(s) Relieving factors: medication Associated symptoms: cough Treatments prior to arrival: other Related Data Home Medications Medication Instructions Recorded Confirmed albuterol sulfate 90 mcg/actuation 1 inh inhalation QID 09/26/22 06/05/23 aerosol inhaler (Ventolin HFA) Previous Rx's Medication Instructions Recorded lisinopril 5 mg tablet 5 mg PO DAILY 90 days #90 tabs 09/27/22 metformin 500 mg tablet 500 mg PO DAILY 90 days #90 tabs 09/27/22 budesonide-formoterol HFA 80 1 inh inhalation BID 30 days #10.2 12/25/22 mcg-4.5 mcg/actuation aerosol grams inhaler (Symbicort) nitrofurantoin 100 mg PO Q12H 5 days #10 caps 03/06/23 monohydrate/macrocrystals 100 mg capsule (Macrobid) albuterol sulfate 90 mcg/actuation 2 puff inhalation Q6-8H PRN 03/11/23 aerosol inhaler (Ventolin HFA) wheezing 0 days #8.5 grams omeprazole 20 mg capsule,delayed 20 mg PO DAILY 90 days #90 caps 03/12/23 release fluticasone 500 mcg-salmeterol 50 1 inh inhalation Q12H 30 days #60 03/14/23 mcg/dose blistr powdr for ea inhalation (Wixela Inhub) ipratropium bromide 17 2 puff inhalation Q8H #12.9 grams 03/19/23 mcg/actuation HFA aerosol inhaler (Atrovent HFA) prednisone 50 mg tablet 50 mg PO DAILY 5 days #5 tabs 11/14/23 albuterol sulfate 90 mcg/actuation 2 puff inhalation QID #8.5 grams 04/10/23 aerosol inhaler prednisone 20 mg tablet 20 mg PO DAILY 12 days #26 tabs 04/10/23 albuterol sulfate 2.5 mg/3 mL 2.5 mg (3 mL) inhalation Q4-6H PRN 05/28/23 (0.083 %) solution for nebulization shortness of breath or wheezing 30 days #180 mL albuterol sulfate 90 mcg/actuation 2 inh inhalation Q4-6H PRN 06/01/23 breath activated powder inhaler shortness of breath or wheezing #1 ea doxycycline hyclate 100 mg capsule 100 mg PO BID 10 days #20 caps 06/01/23 prednisone 20 mg tablet 40 mg (2 x 20 mg) PO DAILY 5 days 06/01/23 #10 tabs albuterol sulfate 2.5 mg/3 mL 2.5 mg (3 mL) inhalation Q4-6H PRN 06/05/23 (0.083 %) solution for nebulization shortness of breath or wheezing 30 days #180 mL diltiazem HCl 60 mg 60 mg PO QAM 30 days #30 caps 06/05/23 capsule,extended release 12 hr fluticasone fur. 200 mcg-umeclid 1 inh inhalation DAILY 28 days #28 06/05/23 62.5 mcg-vilant 25 mcg ea inhalat.powder (Trelegy Ellipta) nebulizers (Compact Compressor #1 ea 06/05/23 Nebulizer) albuterol sulfate 2.5 mg/3 mL 2.5 mg (3 mL) inhalation Q4-6H PRN 06/16/23 (0.083 %) solution for nebulization shortness of breath or wheezing #75 mL azithromycin 250 mg tablet See Rx Instructions PO .COMPLEX #6 06/16/23 tabs prednisone 20 mg tablet 40 mg (2 x 20 mg) PO DAILY #10 tabs 06/16/23 Allergies Allergy/AdvReac Type Severity Reaction Status Date / Time No Known Allergies Allergy Verified 06/16/23 10:46 Review of Systems 2 Review of Systems: As per HPI. Yes all other systems are reviewed and are negative Constitutional: Constitutional: Reports as per HPI PMFSH Past Medical History Medical History Foul smelling urine Obesity Elevated fasting glucose Foot pain Screening for cervical cancer Breast cancer screening Screening for colon cancer Adult general medical examination Rash Laboratory exam ordered as part of routine general medical examination Prediabetes Asthma Kidney stone Hernia Surgical History History of ureteroscopy History of herniorrhaphy Family History Family History Maternal Grandmother Alzheimer's dementia Osteoarthritis Father Diabetes Social History Social History Housing: Apartment Are you a primary medicare specialist to a significant other at home: No Do you presently have visiting nurse or other home services: No Patient Tobacco Use Status: Former Tobacco user Quit Date: 3 Years ago Tobacco use type: Cigarette Cigarette Packs Per Day: 1 (1 pack per 2 days) Cigarettes Per Day: 10 Smoked in Last 30 Days: No e-Cigarette/Vaping Use: Never Used Second Hand Smoke Exposure: Yes (Due to where patient lives.) Use of substances other than those prescribed or required for medical reasons: No Advance Directives: No Advance Directives Information Provided: No Patient : No service: No Current occupational status: unemployed Current occupational exposures/hazards: No Cognitive needs: No Hearing needs: Yes Vision needs: Yes Physical Exam ED Vital Signs: Vital Signs - 24 hr 06/16/23 10:47 06/16/23 10:49 06/16/23 11:52 Temperature 98.1 F Pulse Rate 110 H 115 H 103 H Respiratory Rate 22 H 22 H 22 H Blood Pressure 148/84 H Pulse Oximetry 93 Oxygen Delivery Method Room Air 06/16/23 12:17 06/16/23 13:55 06/16/23 15:27 Temperature 97.8 F 98.1 F Pulse Rate 89 103 H 108 H Respiratory Rate 23 H 22 H 18 Blood Pressure 132/66 144/71 H Pulse Oximetry 96 96 Oxygen Delivery Method Room Air Room Air 06/16/23 15:46 Temperature 98.3 F Pulse Rate 110 H Respiratory Rate 16 Blood Pressure 122/67 Pulse Oximetry 94 Oxygen Delivery Method Room Air BMI result Body Mass Index 36.5 Vital signs have been reviewed and appear to be correct. Blood pressure elevated. Heart rate mildly tachycardic. Respiratory rate slightly tachypneic. Temperature normal. Oxygen saturation normal. Const General: cooperative, healthy appearing and no acute distress Orientation/consciousness: oriented to person, oriented to place, oriented to time and patient oriented x3 Limitations: no limitations HENMT Head: Yes normocephalic and Yes atraumatic Ears: external ears normal General nose exam: Normal external nose present Face and sinus: Yes face symmetric Mouth: oropharynx normal and moist mucous membranes Throat: Yes uvula midline Eyes Pupils: Equal, round and reactive pupils present Neck Neck: Yes normal visual inspection and Yes supple Resp Effort & Inspection: normal respiratory effort and able to speak in complete sentences Auscultation: wheezes expiratory wheezes, inspiratory wheezes and throughout Cardio Rate: regular rate Rhythm: regular rhythm Heart sounds: S1 normal heart sound present and S2 normal heart sound present GI Palpation (GI): Soft to palpation and nontender Auscultation: normoactive bowel sounds General: Yes no CVA tenderness Back/Spine/Pelvis Back: no CVA tenderness Skin General skin exam: elasticity normal and turgor normal Neuro General: oriented to person, oriented to place, oriented to time, patient oriented x3, moves all extremities, no focal motor deficits and CN's II-XI intact bilaterally Cranial nerves: Yes Equal, round and reactive pupils present Cognition (Neuro): normal cognition Extrem General: Yes full ROM, Yes no pedal edema and Yes no calf tenderness Psych Mental Status: mental status grossly normal Affect: normal affect Thought process: Normal thought process present Medications Administered Discontinued Medications Generic Name Dose Route Start Last Admin Trade Name Jeremiah PRN Reason Stop Dose Admin Albuterol Sulfate 2.5 mg/ 5 mg 06/16/23 11:47 06/16/23 11:51 Albuterol Sulfate 2.5 mg INHALE 06/16/23 11:48 5 mg ONCE ONE Administration Albuterol/Ipratropium 3 ml 06/16/23 15:22 06/16/23 15:26 Albuterol/Iprat 2.5/0.5mg 3 Ml Ampul.Neb INHALE 06/16/23 15:23 3 ml ONCE ONE Administration Albuterol Sulfate 2.5 mg/ 0 mg 06/16/23 10:44 06/16/23 10:48 Albuterol/Ipratropium 3 ml INHALE 06/16/23 10:45 1 dose ONCE ONE Administration Magnesium Sulfate 2 gm in 50 mls @ 25 mls/hr 06/16/23 13:39 06/16/23 15:54 Magnesium Sulfate/H2o IV 06/16/23 15:38 Infused ONCE ONE Infusion Methylprednisolone Sodium Succinate 125 mg 06/16/23 10:56 06/16/23 11:38 Methylprednisolone Sod Succ 125 Mg/2 Ml Vial IVPUSH 06/16/23 10:57 125 mg ONCE ONE Administration Medical Decision Making Medical Decision Making [facility] Narrative: 11:00 Patient is a 58-year-old Welsh-speaking female presenting to the emergency department with complaint of wheezing, shortness of breath and cough productive of clear sputum since Saturday. On exam patient is awake, A+Ox3, tachycardic, slightly tachypneic, BP elevated, afebrile, normal neurological exam without focal deficits, physical exam findings as above. Given reported symptoms and physical exam findings, initial differential includes asthma exacerbation, viral upper respiratory infection, Covid, flu, bronchitis, pneumonia. Labs unremarkable. X-ray notable for no evidence of pneumonia. My interpretation is in agreement with the radiologist's interpretation. Patient reports improvement in symptoms after breathing treatments and medications administered in the ED, wheezing significantly improved. She is not hypoxic, no work of breathing, feel she is stable for discharge home and patient is in agreement with this. Will prescribe additional course of prednisone and azithromycin. Instructed patient to follow up with PCP. Return precautions discussed at bedside. Patient verbalized understanding of and agreement with plan. Differential Diagnosis Differential Diagnoses: The differential diagnosis associated with the presentation includes As per [facility]. Admission/Observation Consideration of admission/observation: Escalation of care including admission/observation considered Lab Data [facility] Lab Attestation statement: I reviewed the patient's lab results. As per MDM. 06/16/23 11:36 06/16/23 12:01 Labs: Lab Results 06/16/23 06/16/23 06/16/23 Range/Units 11:25 11:36 12:01 WBC 9.2 (4.8-10.8) X10*3/uL RBC 4.54 (4.20-5.50) X10*6/uL Hgb 13.8 (12.0-16.0) g/dl Hct 41.0 (37.0-47.0) % MCV 90.3 (80.0-98.0) fL MCH 30.4 (27.0-33.0) pg MCHC 33.7 (31.0-35.0) g/dl RDW 14.2 (11.0-16.0) % Plt Count 268 (160-400) X10*3/uL MPV 9.5 (9.4-12.3) fL Immature Gran % (Auto) 0.4 (0.0-0.4) % Neut % (Auto) 59.7 (45-73) % Lymph % (Auto) 26.1 (20-40) % Atlantic % (Auto) 8.9 (2-11) % Eos % (Auto) 4.1 H (0-4) % Baso % (Auto) 0.8 (0-2) % Lymph # (Auto) 2.4 (1.2-4.9) X10*3/uL Atlantic # (Auto) 0.8 (0.1-1.2) X10*3/uL Eos # (Auto) 0.4 (0.0-0.4) X10*3/uL Baso # (Auto) 0.1 (0.0-0.2) X10*3/uL Abs Immat Gran (auto) 0.04 H (0.00-0.03) X10*3/uL Absolute Neuts (auto) 5.5 (2.0-8.3) x10*3/uL Absolute Nucleated RBC 0.000 (0.0-0.012) X10*3/uL Nucleated RBC % (auto) 0.0 (0.0-0.2) /100WBC Sodium 143 (135-145) mmol/L Potassium 4.7 (3.3-5.1) mmol/L Chloride 104 (96-108) mmol/L Carbon Dioxide 30 H (22-29) mmol/L Anion Gap 14 (12-20) BUN 13 (9-16) mg/dL Creatinine 0.79 (0.5-1.4) mg/dL Estim Creat Clear Calc 80.2 Estimated GFR > 60 Random Glucose 110 (60-115) mg/dL Calcium 9.7 (8.4-10.2) mg/dL COVID-19 (JAROCHO) Negative (Negative) COVID-19 Clin Com See Note Influenza Type A (JORGE) Negative (Negative) Influenza Type B (JORGE) Negative (Negative) Influenza A & B Note See Note Independent Interpretation I performed an independent interpretation of an: Plain X-Ray Interpretation: No evidence of pneumonia Radiology Impression Discussion of test interpretation with radiology: I have reviewed the radiologist's reading. Radiologist Impression: XR/XR chest 2V IMPRESSION: No acute cardiopulmonary abnormalities. External Record Review External record reviewed: Inpatient record, Office record and Outpatient record Prescription Management I considered prescription management with: Antibiotic and Other Discharge Plan Discharge Clinical Impression: Asthma exacerbation, Bronchitis Patient Disposition: Home, Self-Care Instructions: Asthma (DC), Acute Bronchitis (ED) Additional Instructions: Usted fue evaluado hoy en el departamento de emergencias por tos y dificultad para respirar. Est? recibiendo tratamiento para la bronquitis con un antibi?bairon; complete el tratamiento completo seg?n lo prescrito. Tambi?n le recetan un tratamiento breve con esteroides para disminuir la inflamaci?n. Le recetan un inhalador que puede usar cada 4 a 6 horas seg?n sea necesario para la dificultad para respirar. Pato un seguimiento con waite proveedor de atenci?n primaria esta semana. Regrese al departamento de emergencias si presenta dificultad para respirar que empeora, dolor en el pecho, fiebre que no mejora con Tylenol o ibuprofeno, o cualquier otro s?ntoma preocupante. Prescriptions: New prednisone 20 mg tablet 40 mg PO DAILY Qty: 10 0RF azithromycin 250 mg tablet See Rx Instructions .ROUTE .COMPLEX Qty: 6 0RF Rx Instructions: For 250 mg dose pack: take 500 mg today (day 1), then 250 mg for 4 days (days 2-5) albuterol sulfate 2.5 mg /3 mL (0.083 %) solution for nebulization 2.5 mg inhalation Q4-6H PRN (Reason: shortness of breath or wheezing) Qty: 75 0RF No Action metformin 500 mg tablet 500 mg PO DAILY 90 Days Qty: 90 3RF lisinopril 5 mg tablet 5 mg PO DAILY 90 Days Qty: 90 2RF budesonide-formoterol [Symbicort] 80-4.5 mcg/actuation HFA aerosol inhaler 1 inh inhalation BID 30 Days Qty: 10.2 3RF albuterol sulfate [Ventolin HFA] 90 mcg/actuation HFA aerosol inhaler 2 puff inhalation Q6-8H PRN (Reason: wheezing) Qty: 8.5 3RF omeprazole 20 mg capsule,delayed release(DR/EC) 20 mg PO DAILY 90 Days Qty: 90 2RF fluticasone propion-salmeterol [Wixela Inhub] 500-50 mcg/dose blister with device 1 inh inhalation Q12H 30 Days Qty: 60 3RF albuterol sulfate 2.5 mg /3 mL (0.083 %) solution for nebulization 2.5 mg inhalation Q4-6H PRN (Reason: shortness of breath or wheezing) 30 Days Qty: 180 3RF prednisone 20 mg tablet 20 mg PO DAILY 12 Days Qty: 26 0RF Rx Instructions: Take 3 tablets for 5 days THEN; Take 2 tablets for 4 days THEN; Take 1 tablet for 3 days albuterol sulfate 90 mcg/actuation HFA aerosol inhaler 2 puff inhalation QID Qty: 8.5 0RF prednisone 50 mg tablet 50 mg PO DAILY 5 Days Qty: 5 0RF Atrovent HFA 17 mcg/actuation HFA aerosol inhaler 2 puff inhalation Q8H Qty: 12.9 0RF doxycycline hyclate 100 mg capsule 100 mg PO BID 10 Days Qty: 20 0RF prednisone 20 mg tablet 40 mg PO DAILY 5 Days Qty: 10 0RF albuterol sulfate 90 mcg/actuation aerosol powdr breath activated 2 inh inhalation Q4-6H PRN (Reason: shortness of breath or wheezing) Qty: 1 0RF nitrofurantoin monohyd/m-cryst [Macrobid] 100 mg capsule 100 mg PO Q12H 5 Days Qty: 10 0RF Rx Instructions: must administer with a meal/food albuterol sulfate [Ventolin HFA] 90 mcg/actuation HFA aerosol inhaler 1 inh inhalation QID diltiazem HCl 60 mg capsule,extended release 12 hr 60 mg PO QAM 30 Days Qty: 30 2RF (DME) nebulizers [Compact Compressor Nebulizer] Misc See Rx Instructions .Route Qty: 1 0RF Rx Instructions: Use As directed, 4 times a day as needed for Wheeze/SOB, 999 days albuterol sulfate 2.5 mg /3 mL (0.083 %) solution for nebulization 2.5 mg inhalation Q4-6H PRN (Reason: shortness of breath or wheezing) 30 Days Qty: 180 2RF Trelegy Ellipta 200-62.5-25 mcg blister with device 1 inh inhalation DAILY 28 Days Qty: 28 3RF Print Language: Welsh
[2023-06-16] MEDS: methylPREDNISolone Sod Succ 125 MG/2 ML VIAL IVPUSH (11:38)
--- NOTE | 2023-06-16 11:39 | PC.NURSE ---
pt a&ox3, iv inserted, labs drawn, nasal swabs obtained, monitoring tech applied nsr 90s, RT gave updraft, lungs in/ex wheezing throughout, pt has productive cough-clear sputum, pt medicated per order, call meehan within reach, will continue to monitor.
[2023-06-16 11:41] LABS: MANUAL DIFF FLAG NO
[2023-06-16 11:44] LABS: Basophils Absolute Auto 0.1 X10*3/uL (0.0-0.2); Basophils Percent Auto 0.8 % (0-2); Eosinophils Absolute Auto 0.4 X10*3/uL (0.0-0.4); Eosinophils Percent Auto 4.1 % (0-4); Hemoglobin 13.8 g/dl (12.0-16.0); Imm Gran Abs Auto 0.04 X10*3/uL (0.00-0.03); Imm Gran Pct Auto 0.4 % (0.0-0.4); Lymphocytes Absolute Auto 2.4 X10*3/uL (1.2-4.9); Lymphocytes Percent Auto 26.1 % (20-40); Mean Corpuscular HGB Conc 33.7 g/dl (31.0-35.0); Mean Corpuscular Hemoglobin 30.4 pg (27.0-33.0); Mean Corpuscular Volume 90.3 fL (80.0-98.0); Mean Platelet Volume 9.5 fL (9.4-12.3); Monocytes Absolute Auto 0.8 X10*3/uL (0.1-1.2); Monocytes Percent Auto 8.9 % (2-11); Neutrophils Absolute Auto 5.5 x10*3/uL (2.0-8.3); Neutrophils Percent Auto 59.7 % (45-73); Platelet Count 268 X10*3/uL (160-400); Red Blood Count 4.54 X10*6/uL (4.20-5.50); Red Cell Distribution Width 14.2 % (11.0-16.0); White Blood Count 9.2 X10*3/uL (4.8-10.8)
[2023-06-16] MEDS: Albuterol Sulfate 2.5 MG, Albuterol Sulfate (0.083%) 2.5 MG 5 MG INHALE (11:51)
[2023-06-16 12:01] LABS: COVID-19 Test Negative (Negative); IDNOW Serial# 08D9AD1C; IDNOW Serial# 152EDE1D; Influenza A Negative (Negative); Influenza B2 Negative (Negative)
[2023-06-16 12:17] LABS: Anion Gap 14 (12-20); Blood Urea Nitrogen 13 mg/dL (9-16); Calcium 9.7 mg/dL (8.4-10.2); Carbon Dioxide 30 mmol/L (22-29); Chloride 104 mmol/L (96-108); Creatinine Clr Calc Pharmacy 80.2; Estimated Glomerular Filt Rate > 60; Glucose Random 110 mg/dL (60-115); Potassium 4.7 mmol/L (3.3-5.1); Sodium 143 mmol/L (135-145)
[2023-06-16] MEDS: Magnesium Sulfate/H2O 2 GM/50 ML PIGGYBACK IV (13:54)
--- NOTE | 2023-06-16 13:54 | PC.NURSE ---
pt to be given mag infusion to help with breathing
[2023-06-16] MEDS: Albuterol/Iprat 2.5/0.5MG 3 ML AMPUL.NEB INHALE (15:26)
--- NOTE | 2023-06-16 16:05 | PC.NURSE ---
patient a&ox3, vitals stable- pt is tachy on the gambling monitor low 100s, lungs are now clear but diminished, pt states she is feeling much better, call meehan within reach, provider notified, will continue to monitor
== END 2023-06-16 16:42 | disposition home or self-care (01) ==
PROVIDERS: Registered Nurse Emergency; Emergency Provider Emergency Medicine Emergency Medical Services; PCP Family Medicine
DX: J45.901 Unspecified asthma with (acute) exacerbation (principal); Z11.52 Encounter for screening for COVID-19; Z79.899 Other long term (current) drug therapy
CPT/HCPCS: 36415; 71046; 80048; 85025; 87502; 87635; 94640; 96365; 96366; 96375; 99285; J2930; J3475

== ENCOUNTER 2023-06-30 09:44 | Emergency (ER) | payer OTHER, SELFPAY ==
--- NOTE | ~2023-06-30 | XR_ITS ---
EXAMINATION: XR CHEST CLINICAL INFORMATION: Wheezing. COMPARISON: Chest radiograph dated 06/16/2023. TECHNIQUE: Frontal view of the chest was obtained. FINDINGS: The trachea is in normal anatomic position. Heart size remains stable. There is prominence of the epicardial fat adjacent to the right margin of the heart. The appearance is similar to chest radiograph dated 06/16/2023. There is no consolidation within either lung. No pleural effusion or pneumothorax. No acute osseous abnormality. XR/XR chest 1V IMPRESSION: Stable appearance of the heart and lungs. No acute disease.
[2023-06-30 09:45] VITALS: BP 140/80; PULSE 118; RESP 18; TEMP 36.8; O2SAT 96; BMI 36.6
--- NOTE | 2023-06-30 10:03 | ED_ITS ---
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 No fevers, chills, chest pain, leg swelling or leg pain. Patient reports she recently came back to her apartment and she has carpeted floors. She feels that this triggers her asthma symptoms. She denies any recent travel or sick contact. Related Data Home Medications Medication Instructions Recorded Confirmed albuterol sulfate 90 mcg/actuation 1 inh inhalation QID 09/26/22 06/05/23 aerosol inhaler (Ventolin HFA) Previous Rx's Medication Instructions Recorded metformin 500 mg tablet 500 mg PO DAILY 90 days #90 tabs 09/27/22 budesonide-formoterol HFA 80 1 inh inhalation BID 30 days #10.2 12/25/22 mcg-4.5 mcg/actuation aerosol grams inhaler (Symbicort) nitrofurantoin 100 mg PO Q12H 5 days #10 caps 03/06/23 monohydrate/macrocrystals 100 mg capsule (Macrobid) albuterol sulfate 90 mcg/actuation 2 puff inhalation Q6-8H PRN 03/11/23 aerosol inhaler (Ventolin HFA) wheezing 0 days #8.5 grams omeprazole 20 mg capsule,delayed 20 mg PO DAILY 90 days #90 caps 03/12/23 release fluticasone 500 mcg-salmeterol 50 1 inh inhalation Q12H 30 days #60 03/14/23 mcg/dose blistr powdr for ea inhalation (Wixela Inhub) ipratropium bromide 17 2 puff inhalation Q8H #12.9 grams 03/19/23 mcg/actuation HFA aerosol inhaler (Atrovent HFA) prednisone 50 mg tablet 50 mg PO DAILY 5 days #5 tabs 03/19/23 albuterol sulfate 90 mcg/actuation 2 puff inhalation QID #8.5 grams 04/10/23 aerosol inhaler prednisone 20 mg tablet 20 mg PO DAILY 12 days #26 tabs 04/10/23 albuterol sulfate 2.5 mg/3 mL 2.5 mg (3 mL) inhalation Q4-6H PRN 05/28/23 (0.083 %) solution for nebulization shortness of breath or wheezing 30 days #180 mL albuterol sulfate 90 mcg/actuation 2 inh inhalation Q4-6H PRN 06/01/23 breath activated powder inhaler shortness of breath or wheezing #1 ea doxycycline hyclate 100 mg capsule 100 mg PO BID 10 days #20 caps 06/01/23 prednisone 20 mg tablet 40 mg (2 x 20 mg) PO DAILY 5 days 06/01/23 #10 tabs albuterol sulfate 2.5 mg/3 mL 2.5 mg (3 mL) inhalation Q4-6H PRN 06/05/23 (0.083 %) solution for nebulization shortness of breath or wheezing 30 days #180 mL diltiazem HCl 60 mg 60 mg PO QAM 30 days #30 caps 06/05/23 capsule,extended release 12 hr fluticasone fur. 200 mcg-umeclid 1 inh inhalation DAILY 28 days #28 06/05/23 62.5 mcg-vilant 25 mcg ea inhalat.powder (Trelegy Ellipta) nebulizers (Compact Compressor #1 ea 06/05/23 Nebulizer) albuterol sulfate 2.5 mg/3 mL 2.5 mg (3 mL) inhalation Q4-6H PRN 06/16/23 (0.083 %) solution for nebulization shortness of breath or wheezing #75 mL azithromycin 250 mg tablet See Rx Instructions PO .COMPLEX #6 06/16/23 tabs prednisone 20 mg tablet 40 mg (2 x 20 mg) PO DAILY #10 tabs 06/16/23 lisinopril 5 mg tablet 5 mg PO DAILY 90 days #90 tabs 06/17/23 benzonatate 200 mg capsule 200 mg PO TID PRN cough #15 caps 06/30/23 prednisone 20 mg tablet 60 mg (3 x 20 mg) PO DAILY #12 tabs 06/30/23 Allergies Allergy/AdvReac Type Severity Reaction Status Date / Time No Known Allergies Allergy Verified 06/30/23 09:45 Review of Systems 2 Review of Systems: Yes all other systems are reviewed and are negative Constitutional: Constitutional: Reports no additional constitutional complaints, Denies body ache(s), Denies chills, Denies fever(s), Denies headache(s) and Denies weakness Eyes: Eyes: Reports no additional eye complaints and Denies change in vision ENT: Reports system reviewed and no additional complaints, except as documented, Denies dizziness, Denies headache(s), Denies nasal congestion, Denies nasal discharge and Denies neck pain Cardiovascular: Cardiovascular: Reports no additional cardiovascular complaints, Denies chest pain, Denies leg edema and Reports dyspnea Respiratory: Respiratory: Reports no additional respiratory complaints, Reports cough, Reports dyspnea and Reports wheezing Gastrointestinal: Gastrointestinal: Reports no additional gastrointestinal complaints, Denies abdominal pain, Denies diarrhea, Denies nausea and Denies vomiting Genitourinary: Genitourinary: Reports no additional female genitourinary complaints and Denies urinary incontinence Musculoskeletal: Musculoskeletal: Reports no additional musculoskeletal complaints, Denies back pain, Denies arthralgias, Denies joint swelling, Denies neck pain, Denies numbness and Denies tingling Integumentary/Breasts: Skin/Breast: Reports system reviewed and no additional complaints, except as docu and Denies rash Neurologic: Reports system reviewed and no additional complaints, except as documented, Denies Abnormal speech present, Denies dizziness, Denies headache(s), Denies numbness, Denies tingling and Denies weakness Allergic/Immunologic: Allergic/Immunologic: Reports wheezing PMFSH Past Medical History Attestation statement: The following information was validated with the patient. Source: old records reviewed and nursing notes reviewed Medical History Foul smelling urine Obesity Elevated fasting glucose Foot pain Screening for cervical cancer Breast cancer screening Screening for colon cancer Adult general medical examination Rash Laboratory exam ordered as part of routine general medical examination Prediabetes Asthma Kidney stone Hernia Surgical History History of ureteroscopy History of herniorrhaphy Family History Family History Maternal Grandmother Alzheimer's dementia Osteoarthritis Father Diabetes Social History Social History Housing: Apartment Are you a primary spiritual care coordinator to a significant other at home: No Do you presently have visiting nurse or other home services: No Patient Tobacco Use Status: Former Tobacco user Quit Date: 3 Years ago Tobacco use type: Cigarette Cigarette Packs Per Day: 1 (1 pack per 2 days) Cigarettes Per Day: 10 Smoked in Last 30 Days: No e-Cigarette/Vaping Use: Never Used Second Hand Smoke Exposure: Yes (Due to where patient lives.) Use of substances other than those prescribed or required for medical reasons: No Advance Directives: No Advance Directives Information Provided: No Patient : No service: No Current occupational status: unemployed Current occupational exposures/hazards: No Cognitive needs: No Hearing needs: Yes Vision needs: Yes Physical Exam 2 Vital Signs: Vital Signs: Last Vital Signs Temp 97.8 F 06/30/23 13:37 Pulse 92 06/30/23 13:37 Resp 20 06/30/23 13:37 BP 110/68 06/30/23 13:37 Pulse Ox 99 06/30/23 13:37 O2 Del Method Room Air 06/30/23 13:37 BMI result Body Mass Index 36.6 Const: General: cooperative, healthy appearing, comfortable and no acute distress Orientation/consciousness: patient oriented x3 Limitations: no limitations HEENT: Head: Yes normal to inspection Ears: hearing grossly normal bilaterally General nose exam: Normal external nose present Face and sinus: Yes normal facial exam Mouth: Normal oral and palatal mucosa present Throat: Yes posterior oropharynx normal Eyes: General: appearance normal, both eyes and all related structures P upils: Equal, round and reactive pupils present Neck: Neck: Yes normal visual inspection Chest: Chest palpation & inspection: normal inspection of the chest Resp: Effort & Inspection: tachypneic Auscultation: wheezes Cardio: Rate: regular rate Rhythm: regular rhythm Peripheral pulses: P eripheral pulses 2+ throughout GI: Inspection: Yes normal to inspection Palpation (GI): Soft to palpation and nontender Auscultation: normal bowel sounds Back/Spine/Pelvis: Thoracic/Lumbar Spine: thoracic and lumbar spine normal to inspection Skin: General skin exam: no rashes or lesions noted Neuro: General: patient oriented x3, no focal motor deficits and normal sensation to monofilament Cranial nerves: Yes Equal, round and reactive pupils present Cognition (Neuro): normal cognition Speech: No Abnormal speech present Gait exam (Neuro): Normal gait present Motor exam (neuro): 5/5 motor strength present throughout Extrem: General: Yes normal to inspection, Yes no pedal edema and Yes no calf tenderness Course Course Course Narrative: 1200-continued wheezing. Will repeat nebulized Reevaluation(s) Reevaluation #1: 1300-feels much improved. LS CTA. Saturations >95%. Plan for discharge home with prednisone, tessalon prn. Reviewed worrisome signs and symptoms of when to return to the emergency room. Comfortable plan for discharge home Medications Administered Discontinued Medications Generic Name Dose Route Start Last Admin Trade Name Freq PRN Reason Stop Dose Admin Albuterol/Ipratropium 3 ml 06/30/23 12:34 06/30/23 12:36 Albuterol/Iprat 2.5/0.5mg 3 Ml Ampul.Neb INHALE 06/30/23 12:35 3 ml ONCE ONE Administration Albuterol Sulfate 2.5 mg/ 0 mg 06/30/23 10:17 06/30/23 10:19 Albuterol/Ipratropium 3 ml INHALE 06/30/23 10:18 1 dose ONCE ONE Administration Magnesium Sulfate 2 gm in 50 mls @ 25 mls/hr 06/30/23 10:03 06/30/23 13:03 Magnesium Sulfate/H2o IV 06/30/23 12:02 Infused ONCE ONE Infusion Methylprednisolone Sodium Succinate 125 mg 06/30/23 10:03 06/30/23 10:49 Methylprednisolone Sod Succ 125 Mg/2 Ml Vial IVPUSH 06/30/23 10:04 125 mg ONCE ONE Administration Medical Decision Making Medical Decision Making MDM Narrative: 58-year-old female with a history of asthma presents to the ER with complaints of 3 days of cough, wheezing, shortness of breath unrelieved with home albuterol. No fevers, chills, chest pain, leg swelling or leg pain. Patient reports she recently came back to her apartment and she has carpeted floors. She feels that this triggers her asthma symptoms. She denies any recent travel or sick contact. Patient has tachypnea and wheezing throughout although stable saturations Will obtain labs, chest x-ray, viral testing. Will give bronchodilator, Solu- Medrol and magnesium Differential Diagnosis Differential Diagnoses: The differential diagnosis associated with the presentation includes Asthma exacerbation, viral syndrome, influenza Low suspicion for PE or pna Admission/Observation Consideration of admission/observation: Escalation of care including admission/observation considered No hypoxia or tachypnea requiring supplemental oxygen admission Lab Data MDM Lab Attestation statement: I reviewed the patient's lab results. 06/30/23 10:30 06/30/23 10:30 Labs: Lab Results 06/30/23 06/30/23 Range/Units 10:30 11:29 WBC 10.5 (4.8-10.8) X10*3/uL RBC 4.57 (4.20-5.50) X10*6/uL Hgb 13.9 (12.0-16.0) g/dl Hct 41.9 (37.0-47.0) % MCV 91.7 (80.0-98.0) fL MCH 30.4 (27.0-33.0) pg MCHC 33.2 (31.0-35.0) g/dl RDW 14.1 (11.0-16.0) % Plt Count 295 (160-400) X10*3/uL MPV 8.8 L (9.4-12.3) fL Immature Gran % (Auto) 0.5 H (0.0-0.4) % Neut % (Auto) 64.8 (45-73) % Lymph % (Auto) 21.7 (20-40) % Schleicher % (Auto) 8.2 (2-11) % Eos % (Auto) 4.2 H (0-4) % Baso % (Auto) 0.6 (0-2) % Lymph # (Auto) 2.3 (1.2-4.9) X10*3/uL Schleicher # (Auto) 0.9 (0.1-1.2) X10*3/uL Eos # (Auto) 0.4 (0.0-0.4) X10*3/uL Baso # (Auto) 0.1 (0.0-0.2) X10*3/uL Abs Immat Gran (auto) 0.05 H (0.00-0.03) X10*3/uL Absolute Neuts (auto) 6.8 (2.0-8.3) x10*3/uL Absolute Nucleated RBC 0.000 (0.0-0.012) X10*3/uL Nucleated RBC % (auto) 0.0 (0.0-0.2) /100WBC Hold Purple Top SEE NOTE Sodium 141 (135-145) mmol/L Potassium 4.7 (3.3-5.1) mmol/L Chloride 105 (96-108) mmol/L Carbon Dioxide 27 (22-29) mmol/L Anion Gap 14 (12-20) BUN 16 (9-16) mg/dL Creatinine 0.83 (0.5-1.4) mg/dL Estim Creat Clear Calc 76.4 Estimated GFR > 60 Random Glucose 118 H (60-115) mg/dL Calcium 9.6 (8.4-10.2) mg/dL Hold Yellow Top See Note Influenza Type A (PCR) NEGATIVE (Negative) Influenza Type B (PCR) NEGATIVE (Negative) RSV RNA Qual (PCR) NEGATIVE (Negative) SARS-CoV-2 RNA (RT-PCR) NEGATIVE (Negative) Independent Interpretation I performed an independent interpretation of an: Plain X-Ray Radiology Impression Discussion of test interpretation with radiology: I have reviewed the radiologist's reading. Independent Historian Clinical information obtained from an independent historian. History obtained from or confirmed by: Other (family member) Discharge Plan Discharge Clinical Impression: Asthma with acute exacerbation Patient Disposition: Home, Self-Care Instructions: Asthma (ED) Additional Instructions: Las pruebas de COVID, gripe y VRS son negativas. La radiograf?a de t?rax es normal. El trabajo de laboratorio es normal. Por favor, empieza ma?edmund con prednisona. [place] el medicamento para la tos seg?n sea necesario. Regrese si los s?ntomas empeoran. [place] waite albuterol seg?n sea necesario. Testing for COVID, flu, RSV are negative. Chest x-ray is normal. Lab work is normal. Please start the prednisone tomorrow. Take the cough medication as needed. Return for any worsening symptoms. Take your albuterol as needed. Prescriptions: New prednisone 20 mg tablet 60 mg PO DAILY Qty: 12 0RF benzonatate 200 mg capsule 200 mg PO TID PRN (Reason: cough) Qty: 15 0RF No Action metformin 500 mg tablet 500 mg PO DAILY 90 Days Qty: 90 3RF budesonide-formoterol [Symbicort] 80-4.5 mcg/actuation HFA aerosol inhaler 1 inh inhalation BID 30 Days Qty: 10.2 3RF albuterol sulfate [Ventolin HFA] 90 mcg/actuation HFA aerosol inhaler 2 puff inhalation Q6-8H PRN (Reason: wheezing) Qty: 8.5 3RF omeprazole 20 mg capsule,delayed release(DR/EC) 20 mg PO DAILY 90 Days Qty: 90 2RF fluticasone propion-salmeterol [Wixela Inhub] 500-50 mcg/dose blister with device 1 inh inhalation Q12H 30 Days Qty: 60 3RF albuterol sulfate 2.5 mg /3 mL (0.083 %) solution for nebulization 2.5 mg inhalation Q4-6H PRN (Reason: shortness of breath or wheezing) 30 Days Qty: 180 3RF lisinopril 5 mg tablet 5 mg PO DAILY 90 Days Qty: 90 2RF prednisone 20 mg tablet 20 mg PO DAILY 12 Days Qty: 26 0RF Rx Instructions: Take 3 tablets for 5 days THEN; Take 2 tablets for 4 days THEN; Take 1 tablet for 3 days albuterol sulfate 90 mcg/actuation HFA aerosol inhaler 2 puff inhalation QID Qty: 8.5 0RF prednisone 20 mg tablet 40 mg PO DAILY Qty: 10 0RF azithromycin 250 mg tablet See Rx Instructions .ROUTE .COMPLEX Qty: 6 0RF Rx Instructions: For 250 mg dose pack: take 500 mg today (day 1), then 250 mg for 4 days (days 2-5) albuterol sulfate 2.5 mg /3 mL (0.083 %) solution for nebulization 2.5 mg inhalation Q4-6H PRN (Reason: shortness of breath or wheezing) Qty: 75 0RF prednisone 50 mg tablet 50 mg PO DAILY 5 Days Qty: 5 0RF Atrovent HFA 17 mcg/actuation HFA aerosol inhaler 2 puff inhalation Q8H Qty: 12.9 0RF doxycycline hyclate 100 mg capsule 100 mg PO BID 10 Days Qty: 20 0RF prednisone 20 mg tablet 40 mg PO DAILY 5 Days Qty: 10 0RF albuterol sulfate 90 mcg/actuation aerosol powdr breath activated 2 inh inhalation Q4-6H PRN (Reason: shortness of breath or wheezing) Qty: 1 0RF nitrofurantoin monohyd/m-cryst [Macrobid] 100 mg capsule 100 mg PO Q12H 5 Days Qty: 10 0RF Rx Instructions: must administer with a meal/food albuterol sulfate [Ventolin HFA] 90 mcg/actuation HFA aerosol inhaler 1 inh inhalation QID diltiazem HCl 60 mg capsule,extended release 12 hr 60 mg PO QAM 30 Days Qty: 30 2RF (DME) nebulizers [Compact Compressor Nebulizer] Misc See Rx Instructions .Route Qty: 1 0RF Rx Instructions: Use As directed, 4 times a day as needed for Wheeze/SOB, 999 days albuterol sulfate 2.5 mg /3 mL (0.083 %) solution for nebulization 2.5 mg inhalation Q4-6H PRN (Reason: shortness of breath or wheezing) 30 Days Qty: 180 2RF Trelegy Ellipta 200-62.5-25 mcg blister with device 1 inh inhalation DAILY 28 Days Qty: 28 3RF Referrals: Oj Aparicio MD [Primary Care Provider] - 1 week Interventions: ED Discharge Assessment Last Done: 06/30/23 13:43 Discharge Date/Time: 06/30/23 13:44 Print Language: Lithuanian
[2023-06-30] MEDS: Albuterol Sulfate 2.5 MG, Albuterol/Iprat 2.5/0.5MG 3 ML 3 ML INHALE (10:19)
[2023-06-30 10:21] VITALS: PULSE 111; RESP 16; O2SAT 97
[2023-06-30 10:36] LABS: MANUAL DIFF FLAG NO
[2023-06-30 10:38] LABS: Basophils Absolute Auto 0.1 X10*3/uL (0.0-0.2); Basophils Percent Auto 0.6 % (0-2); Eosinophils Absolute Auto 0.4 X10*3/uL (0.0-0.4); Eosinophils Percent Auto 4.2 % (0-4); Hematocrit 41.9 % (37.0-47.0); Hemoglobin 13.9 g/dl (12.0-16.0); Imm Gran Abs Auto 0.05 X10*3/uL (0.00-0.03); Imm Gran Pct Auto 0.5 % (0.0-0.4); Lymphocytes Absolute Auto 2.3 X10*3/uL (1.2-4.9); Lymphocytes Percent Auto 21.7 % (20-40); Mean Corpuscular HGB Conc 33.2 g/dl (31.0-35.0); Mean Corpuscular Hemoglobin 30.4 pg (27.0-33.0); Mean Corpuscular Volume 91.7 fL (80.0-98.0); Mean Platelet Volume 8.8 fL (9.4-12.3); Monocytes Absolute Auto 0.9 X10*3/uL (0.1-1.2); Monocytes Percent Auto 8.2 % (2-11); Neutrophils Absolute Auto 6.8 x10*3/uL (2.0-8.3); Neutrophils Percent Auto 64.8 % (45-73); Platelet Count 295 X10*3/uL (160-400); Red Blood Count 4.57 X10*6/uL (4.20-5.50); Red Cell Distribution Width 14.1 % (11.0-16.0); White Blood Count 10.5 X10*3/uL (4.8-10.8)
[2023-06-30] MEDS: Magnesium Sulfate/H2O 2 GM/50 ML PIGGYBACK IV (10:48)
[2023-06-30] MEDS: methylPREDNISolone Sod Succ 125 MG/2 ML VIAL IVPUSH (10:49)
[2023-06-30 10:52] LABS: Anion Gap 14 (12-20); Blood Urea Nitrogen 16 mg/dL (9-16); Calcium 9.6 mg/dL (8.4-10.2); Carbon Dioxide 27 mmol/L (22-29); Chloride 105 mmol/L (96-108); Creatinine Clr Calc Pharmacy 76.4; Estimated Glomerular Filt Rate > 60; Glucose Random 118 mg/dL (60-115); Potassium 4.7 mmol/L (3.3-5.1); Sodium 141 mmol/L (135-145)
[2023-06-30 12:36] VITALS: PULSE 104; RESP 16; O2SAT 96
[2023-06-30] MEDS: Albuterol/Iprat 2.5/0.5MG 3 ML AMPUL.NEB INHALE (12:36)
[2023-06-30 12:44] LABS: Influenza A PCR NEGATIVE (Negative); Influenza B PCR NEGATIVE (Negative); Resp Syncy Virus RNA Qual PCR NEGATIVE (Negative); SARS COV2 PCR INHOUSE NEGATIVE (Negative)
[2023-06-30 13:37] VITALS: BP 110/68; PULSE 92; RESP 20; TEMP 36.6; O2SAT 99
== END 2023-06-30 13:44 | disposition home or self-care (01) ==
PROVIDERS: Nurse Practitioner Family; Emergency Provider Emergency Medicine; PCP Family Medicine
DX: J45.901 Unspecified asthma with (acute) exacerbation (principal); R05.9 Cough, unspecified; R06.02 Shortness of breath; Z11.52 Encounter for screening for COVID-19; Z79.899 Other long term (current) drug therapy; Z87.891 Personal history of nicotine dependence
CPT/HCPCS: 0241U; 36415; 71045; 80048; 85025; 94640; 96365; 96366; 96375; 99284; 99285; J2930; J3475

== ENCOUNTER 2023-07-30 13:15 | Emergency (ER) | payer OTHER, SELFPAY ==
--- NOTE | ~2023-07-30 | XR_ITS ---
EXAMINATION: XR CHEST CLINICAL INFORMATION: Question pneumonia. COMPARISON: Chest radiograph dated 06/30/2023. TECHNIQUE: Frontal view of the chest was obtained. FINDINGS: The trachea is in normal anatomic position. The cardiac silhouette is normal in size and configuration. Both lungs are clear. There is no pleural effusion. No pneumothorax. No acute osseous abnormality. XR/XR chest 1V IMPRESSION: Stable appearance of the heart and lungs. No active disease.
[2023-07-30 13:18] VITALS: BP 138/70; PULSE 121; RESP 26; TEMP 37; O2SAT 91; BMI 38.5
--- NOTE | 2023-07-30 13:20 | ECG_ITS ---
Test Reason : SOB Blood Pressure : / mmHG Vent. Rate : 115 BPM Atrial Rate : 115 BPM P-R Int : 136 ms QRS Dur : 088 ms QT Int : 308 ms P-R-T Axes : 078 073 059 degrees QTc Int : 426 ms Sinus tachycardia Otherwise normal ECG When compared with ECG of 01-JUN-2023 09:38, No significant change was found Referred By: Binh Vyas Electronically Signed By:Gerardo Dodson
--- NOTE | 2023-07-30 13:26 | ED.GENADULT ---
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 Patient states that she felt congested several days ago and states that she has had a dry cough and shortness breath. She has been using her inhalers and nebulizer machine at home which has provided her without any relief. She denies any fevers, chills, sore throat, ear pain, chest pain, abdominal pain, nausea, vomiting or diarrhea. Denies sick contacts. No other complaints or concerns at this time. MD complaint: Cough, shortness of breath, congestion Onset (ago): day(s) Radiation: non-radiation Severity: moderate Quality: aching Pain Consistency: constant Relieving factors: none Exacerbating factors: none Associated symptoms: denies other symptoms Treatments prior to arrival: none Related Data Home Medications Medication Instructions Recorded Confirmed albuterol sulfate 90 mcg/actuation 1 inh inhalation QID 09/26/22 06/05/23 aerosol inhaler (Ventolin HFA) Previous Rx's Medication Instructions Recorded metformin 500 mg tablet 500 mg PO DAILY 90 days #90 tabs 09/27/22 budesonide-formoterol HFA 80 1 inh inhalation BID 30 days #10.2 12/25/22 mcg-4.5 mcg/actuation aerosol grams inhaler (Symbicort) nitrofurantoin 100 mg PO Q12H 5 days #10 caps 03/06/23 monohydrate/macrocrystals 100 mg capsule (Macrobid) albuterol sulfate 90 mcg/actuation 2 puff inhalation Q6-8H PRN 03/11/23 aerosol inhaler (Ventolin HFA) wheezing 0 days #8.5 grams omeprazole 20 mg capsule,delayed 20 mg PO DAILY 90 days #90 caps 03/12/23 release fluticasone 500 mcg-salmeterol 50 1 inh inhalation Q12H 30 days #60 03/14/23 mcg/dose blistr powdr for ea inhalation (Wixela Inhub) ipratropium bromide 17 2 puff inhalation Q8H #12.9 grams 03/19/23 mcg/actuation HFA aerosol inhaler (Atrovent HFA) prednisone 50 mg tablet 50 mg PO DAILY 5 days #5 tabs 03/19/23 albuterol sulfate 90 mcg/actuation 2 puff inhalation QID #8.5 grams 04/10/23 aerosol inhaler prednisone 20 mg tablet 20 mg PO DAILY 12 days #26 tabs 04/10/23 albuterol sulfate 2.5 mg/3 mL 2.5 mg (3 mL) inhalation Q4-6H PRN 05/28/23 (0.083 %) solution for nebulization shortness of breath or wheezing 30 days #180 mL albuterol sulfate 90 mcg/actuation 2 inh inhalation Q4-6H PRN 06/01/23 breath activated powder inhaler shortness of breath or wheezing #1 ea doxycycline hyclate 100 mg capsule 100 mg PO BID 10 days #20 caps 06/01/23 prednisone 20 mg tablet 40 mg (2 x 20 mg) PO DAILY 5 days 06/01/23 #10 tabs albuterol sulfate 2.5 mg/3 mL 2.5 mg (3 mL) inhalation Q4-6H PRN 06/05/23 (0.083 %) solution for nebulization shortness of breath or wheezing 30 days #180 mL fluticasone fur. 200 mcg-umeclid 1 inh inhalation DAILY 28 days #28 06/05/23 62.5 mcg-vilant 25 mcg ea inhalat.powder (Trelegy Ellipta) nebulizers (Compact Compressor #1 ea 06/05/23 Nebulizer) albuterol sulfate 2.5 mg/3 mL 2.5 mg (3 mL) inhalation Q4-6H PRN 06/16/23 (0.083 %) solution for nebulization shortness of breath or wheezing #75 mL azithromycin 250 mg tablet See Rx Instructions PO .COMPLEX #6 06/16/23 tabs prednisone 20 mg tablet 40 mg (2 x 20 mg) PO DAILY #10 tabs 06/16/23 lisinopril 5 mg tablet 5 mg PO DAILY 90 days #90 tabs 06/17/23 benzonatate 200 mg capsule 200 mg PO TID PRN cough #15 caps 06/30/23 prednisone 20 mg tablet 60 mg (3 x 20 mg) PO DAILY #12 tabs 06/30/23 diltiazem HCl 60 mg 60 mg PO QAM 90 days #90 caps 07/03/23 capsule,extended release 12 hr carbamide peroxide 6.5 % ear drops 5 drp otic (ear) left DAILY 4 days 07/30/23 (Ear Wax Drops) #15 mL prednisone 20 mg tablet 40 mg (2 x 20 mg) PO DAILY 4 days 07/30/23 #8 tabs Allergies Allergy/AdvReac Type Severity Reaction Status Date / Time No Known Allergies Allergy Verified 06/30/23 09:45 Review of Systems Review of Systems: Yes all other systems are reviewed and are negative Constitutional: Constitutional: Reports as per [facility] Past Medical History Medical History Foul smelling urine Obesity Elevated fasting glucose Foot pain Screening for cervical cancer Breast cancer screening Screening for colon cancer Adult general medical examination Rash Laboratory exam ordered as part of routine general medical examination Prediabetes Asthma Kidney stone Hernia Surgical History History of ureteroscopy History of herniorrhaphy Family History Family History Maternal Grandmother Alzheimer's dementia Osteoarthritis Father Diabetes Social History Social History Housing: Apartment Are you a primary childcare teacher to a significant other at home: No Do you presently have visiting nurse or other home services: No Patient Tobacco Use Status: Former Tobacco user Quit Date: 3 Years ago Tobacco use type: Cigarette Cigarette Packs Per Day: 1 (1 pack per 2 days) Cigarettes Per Day: 10 e-Cigarette/Vaping Use: Never Used Second Hand Smoke Exposure: Yes (Due to where patient lives.) service: No Current occupational status: unemployed Current occupational exposures/hazards: No Cognitive needs: No Hearing needs: Yes Vision needs: Yes Physical Exam ED Vital Signs: Vital Signs - 24 hr 07/30/23 16:00 07/30/23 16:20 07/30/23 16:38 Temperature 98.6 F Pulse Rate 99 99 Respiratory Rate 18 18 Blood Pressure 130/70 130/70 Pulse Oximetry 97 99 97 Oxygen Delivery Method Room Air Room Air Room Air BMI result Body Mass Index 38.5 Const General: cooperative, comfortable and no acute distress Orientation/consciousness: patient oriented x3 Limitations: no limitations HENMT Head: Yes normal to inspection, Yes normocephalic and Yes atraumatic Ears: hearing grossly normal bilaterally General nose exam: Normal external nose present Face and sinus: Yes normal facial exam Mouth: Normal oral and palatal mucosa present, oropharynx normal and moist mucous membranes Throat: Yes posterior oropharynx normal Eyes General: appearance normal, both eyes and all related structures Eyelids: Yes eyelids normal Conjunctivae: conjunctivae normal Sclerae: sclerae normal Pupils: Equal, round and reactive pupils present EOM: EOMs intact bilaterally Neck Neck: Yes normal visual inspection, Yes full ROM and Yes no lymphadenopathy Lymphatic: no lymphadenopathy noted Chest Chest palpation & inspection: normal inspection of the chest Resp Other: Expiratory wheeze noted in right lower and right upper lungs no crackles or rhonchi Effort & Inspection: normal respiratory effort and able to speak in complete sentences Cardio Rate: regular rate Rhythm: regular rhythm Heart sounds: S1 normal heart sound present and S2 normal heart sound present GI Inspection: Yes normal to inspection Skin General skin exam: no rashes or lesions noted Trauma: no lacerations or abrasions Wounds: no wounds Neuro General: patient oriented x3 and moves all extremities Cranial nerves: Yes Equal, round and reactive pupils present Extrem General: Yes normal to inspection Right upper extremity: normal to inspection Left upper extremity: normal to inspection Right lower extremity: normal to inspection Left lower extremity: normal to inspection Course Course Course Narrative: RME: 58 yold female presents to ED for shortness of breath and chest tightness history of asthma. Patient has auditory wheezing and not speaking in full sentences. Patient brought into [facility]. Asthma meds, labs, EKG, chest x-ray ordered. Reevaluation(s) Reevaluation #1: Patient feeling much better, requesting discharge. Patient will be discharged on prednisone. Oxygen saturation 96% on room air, lungs clear to auscultation bilaterally. Will continue with prednisone at home. Given strict return precautions. Patient understands and agrees with plan. Medications Administered Discontinued Medications Generic Name Dose Route Start Last Admin Trade Name Freq PRN Reason Stop Dose Admin Albuterol/Ipratropium 3 ml 07/30/23 14:30 07/30/23 14:34 Albuterol/Iprat 2.5/0.5mg 3 Ml Ampul.Neb INHALE 07/30/23 14:31 3 ml ONCE ONE Administration Albuterol Sulfate 5 mg/ 0 mg 07/30/23 13:41 07/30/23 13:45 Albuterol/Ipratropium 3 ml INHALE 07/30/23 13:42 7.5 each ONCE ONE Administration Magnesium Sulfate 2 gm in 50 mls @ 25 mls/hr 07/30/23 13:20 07/30/23 14:08 Magnesium Sulfate/H2o IV 07/30/23 15:19 25 mls/hr ONCE ONE Administration Methylprednisolone Sodium Succinate 125 mg 07/30/23 13:20 07/30/23 14:08 Methylprednisolone Sod Succ 125 Mg/2 Ml Vial IVPUSH 07/30/23 13:21 125 mg ONCE ONE Administration Medical Decision Making Medical Decision Making [facility] Narrative: This is a 58-year-old female, with a history of asthma, who presents emergency department with complaints of congestion, dry cough for the last 2 days. On arrival, patient tachycardic at 121, respirations 26, oxygen saturation 91% on room air. Lungs with inspiratory and expiratory wheezes noted throughout all lung molina. She was brought back to a room, where labs, chest x-ray, IV magnesium, IV Solu-Medrol, and albuterol inhaler was administered. Differential diagnoses include asthma exacerbation, URI, bronchitis, pneumonia. Plan: Labs, chest x-ray, IV Mag mesial, IV Solu-Medrol, albuterol. Differential Diagnosis Differential Diagnoses: The differential diagnosis associated with the presentation includes See above Admission/Observation Consideration of admission/observation: Escalation of care including admission/observation considered Escalation of care including admission/observation considered however given workup today not warranted at this time. Lab Data [facility] Lab Attestation statement: I reviewed the patient's lab results. No leukocytosis, stable H&H, negative COVID, influenza 07/30/23 13:33 07/30/23 13:33 Labs: Lab Results 07/30/23 Range/Units 13:33 WBC 8.9 (4.8-10.8) X10*3/uL RBC 4.26 (4.20-5.50) X10*6/uL Hgb 13.1 (12.0-16.0) g/dl Hct 39.6 (37.0-47.0) % MCV 93.0 (80.0-98.0) fL MCH 30.8 (27.0-33.0) pg MCHC 33.1 (31.0-35.0) g/dl RDW 14.3 (11.0-16.0) % Plt Count 304 (160-400) X10*3/uL MPV 8.8 L (9.4-12.3) fL Immature Gran % (Auto) 0.7 H (0.0-0.4) % Neut % (Auto) 87.9 H (45-73) % Lymph % (Auto) 7.3 L (20-40) % [place] % (Auto) 3.5 (2-11) % Eos % (Auto) 0.1 (0-4) % Baso % (Auto) 0.5 (0-2) % Lymph # (Auto) 0.7 L (1.2-4.9) X10*3/uL [place] # (Auto) 0.3 (0.1-1.2) X10*3/uL Eos # (Auto) 0.0 (0.0-0.4) X10*3/uL Baso # (Auto) 0.0 (0.0-0.2) X10*3/uL Abs Immat Gran (auto) 0.06 H (0.00-0.03) X10*3/uL Absolute Neuts (auto) 7.8 (2.0-8.3) x10*3/uL Absolute Nucleated RBC 0.000 (0.0-0.012) X10*3/uL Nucleated RBC % (auto) 0.0 (0.0-0.2) /100WBC PT 12.9 (11.1-13.3) SEC INR 1.1 (0.9-1.1) APTT 30.6 (26.0-36.8) SEC Sodium 142 (135-145) mmol/L Potassium 4.2 (3.3-5.1) mmol/L Chloride 108 (96-108) mmol/L Carbon Dioxide 23 (22-29) mmol/L Anion Gap 15 (12-20) BUN 20 H (9-16) mg/dL Creatinine 0.81 (0.5-1.4) mg/dL Estim Creat Clear Calc 77.5 Estimated GFR > 60 Random Glucose 170 H (60-115) mg/dL Calcium 9.8 (8.4-10.2) mg/dL Total Bilirubin 0.2 (0.0-1.0) mg/dL AST 30 (5-31) U/L ALT 34 H (0-31) U/L Alkaline Phosphatase 69 (39-117) U/L Troponin I High Sens < 2.7 (<3.5-17.0) ng/L B-Natriuretic Peptide 45 (<100) pg/mL Total Protein 7.6 (6.5-8.0) g/dL Albumin 4.2 (3.5-5.0) g/dL Influenza Type A (PCR) NEGATIVE (Negative) Influenza Type B (PCR) NEGATIVE (Negative) RSV RNA Qual (PCR) NEGATIVE (Negative) SARS-CoV-2 RNA (RT-PCR) NEGATIVE (Negative) Independent Interpretation Interpretation: I reviewed the x-ray and agree with the radiology report Radiology Impression Discussion of test interpretation with radiology: I have reviewed the radiologist's reading. Radiologist Impression: EXAMINATION: XR CHEST CLINICAL INFORMATION: Question pneumonia. COMPARISON: Chest radiograph dated 06/30/2023. TECHNIQUE: Frontal view of the chest was obtained. FINDINGS: The trachea is in normal anatomic position. The cardiac silhouette is normal in size and configuration. Both lungs are clear. There is no pleural effusion. No pneumothorax. No acute osseous abnormality. XR/XR chest 1V IMPRESSION: Stable appearance of the heart and lungs. No active disease. External Record Review External record reviewed: Inpatient record, Office record, Outpatient record, Prior outpatient labs, Prior outpatient radiology, Primary care record and Outside ED record Discharge Plan Discharge Clinical Impression: Asthma exacerbation Patient Disposition: Home, Self-Care Instructions: Asthma (ED), How Your Lungs Work (ED) Additional Instructions: Your seen in the emergency department due to shortness of breath. Your symptoms improved after receiving IV medications. Your blood work was reassuring. Your chest x-ray does not show a pneumonia. You tested negative for COVID, flu, RSV. You likely have a virus that is causing you to have worsening asthma. Please take prescribed prednisone as directed, start this tomorrow as you already received IV steroids today. Drink plenty of fluids get plenty of rest. If any new or worsening symptoms occur including but not limited to chest pain, shortness of breath, please return for re-evaluation. Prescriptions: New prednisone 20 mg tablet 40 mg PO DAILY 4 Days Qty: 8 0RF Rx Instructions: Start July 31, 2023 Ear Wax Drops 6.5 % drops 5 drp otic (ear) left DAILY 4 Days Qty: 15 0RF No Action metformin 500 mg tablet 500 mg PO DAILY 90 Days Qty: 90 3RF budesonide-formoterol [Symbicort] 80-4.5 mcg/actuation HFA aerosol inhaler 1 inh inhalation BID 30 Days Qty: 10.2 3RF albuterol sulfate [Ventolin HFA] 90 mcg/actuation HFA aerosol inhaler 2 puff inhalation Q6-8H PRN (Reason: wheezing) Qty: 8.5 3RF omeprazole 20 mg capsule,delayed release(DR/EC) 20 mg PO DAILY 90 Days Qty: 90 2RF fluticasone propion-salmeterol [Wixela Inhub] 500-50 mcg/dose blister with device 1 inh inhalation Q12H 30 Days Qty: 60 3RF albuterol sulfate 2.5 mg /3 mL (0.083 %) solution for nebulization 2.5 mg inhalation Q4-6H PRN (Reason: shortness of breath or wheezing) 30 Days Qty: 180 3RF lisinopril 5 mg tablet 5 mg PO DAILY 90 Days Qty: 90 2RF diltiazem HCl 60 mg capsule,extended release 12 hr 60 mg PO QAM 90 Days Qty: 90 0RF prednisone 20 mg tablet 20 mg PO DAILY 12 Days Qty: 26 0RF Rx Instructions: Take 3 tablets for 5 days THEN; Take 2 tablets for 4 days THEN; Take 1 tablet for 3 days albuterol sulfate 90 mcg/actuation HFA aerosol inhaler 2 puff inhalation QID Qty: 8.5 0RF prednisone 20 mg tablet 40 mg PO DAILY Qty: 10 0RF azithromycin 250 mg tablet See Rx Instructions .ROUTE .COMPLEX Qty: 6 0RF Rx Instructions: For 250 mg dose pack: take 500 mg today (day 1), then 250 mg for 4 days (days 2-5) albuterol sulfate 2.5 mg /3 mL (0.083 %) solution for nebulization 2.5 mg inhalation Q4-6H PRN (Reason: shortness of breath or wheezing) Qty: 75 0RF prednisone 50 mg tablet 50 mg PO DAILY 5 Days Qty: 5 0RF Atrovent HFA 17 mcg/actuation HFA aerosol inhaler 2 puff inhalation Q8H Qty: 12.9 0RF doxycycline hyclate 100 mg capsule 100 mg PO BID 10 Days Qty: 20 0RF prednisone 20 mg tablet 40 mg PO DAILY 5 Days Qty: 10 0RF albuterol sulfate 90 mcg/actuation aerosol powdr breath activated 2 inh inhalation Q4-6H PRN (Reason: shortness of breath or wheezing) Qty: 1 0RF prednisone 20 mg tablet 60 mg PO DAILY Qty: 12 0RF benzonatate 200 mg capsule 200 mg PO TID PRN (Reason: cough) Qty: 15 0RF nitrofurantoin monohyd/m-cryst [Macrobid] 100 mg capsule 100 mg PO Q12H 5 Days Qty: 10 0RF Rx Instructions: must administer with a meal/food albuterol sulfate [Ventolin HFA] 90 mcg/actuation HFA aerosol inhaler 1 inh inhalation QID (DME) nebulizers [Compact Compressor Nebulizer] Misc See Rx Instructions .Route Qty: 1 0RF Rx Instructions: Use As directed, 4 times a day as needed for Wheeze/SOB, 999 days albuterol sulfate 2.5 mg /3 mL (0.083 %) solution for nebulization 2.5 mg inhalation Q4-6H PRN (Reason: shortness of breath or wheezing) 30 Days Qty: 180 2RF Trelegy Ellipta 200-62.5-25 mcg blister with device 1 inh inhalation DAILY 28 Days Qty: 28 3RF Interventions: ED Discharge Assessment Last Done: 07/30/23 16:38 Discharge Date/Time: 07/30/23 16:37
[2023-07-30 13:39] LABS: MANUAL DIFF FLAG NO
[2023-07-30 13:42] LABS: Basophils Percent Auto 0.5 % (0-2); Eosinophils Percent Auto 0.1 % (0-4); Hematocrit 39.6 % (37.0-47.0); Hemoglobin 13.1 g/dl (12.0-16.0); Imm Gran Abs Auto 0.06 X10*3/uL (0.00-0.03); Imm Gran Pct Auto 0.7 % (0.0-0.4); Lymphocytes Absolute Auto 0.7 X10*3/uL (1.2-4.9); Lymphocytes Percent Auto 7.3 % (20-40); Mean Corpuscular HGB Conc 33.1 g/dl (31.0-35.0); Mean Corpuscular Hemoglobin 30.8 pg (27.0-33.0); Mean Platelet Volume 8.8 fL (9.4-12.3); Monocytes Absolute Auto 0.3 X10*3/uL (0.1-1.2); Monocytes Percent Auto 3.5 % (2-11); Neutrophils Absolute Auto 7.8 x10*3/uL (2.0-8.3); Neutrophils Percent Auto 87.9 % (45-73); Platelet Count 304 X10*3/uL (160-400); Red Blood Count 4.26 X10*6/uL (4.20-5.50); Red Cell Distribution Width 14.3 % (11.0-16.0); White Blood Count 8.9 X10*3/uL (4.8-10.8)
[2023-07-30] MEDS: Albuterol Sulfate 5 MG, Albuterol/Iprat 2.5/0.5MG 3 ML 3 ML INHALE (13:45)
[2023-07-30 13:46] VITALS: PULSE 114; RESP 26; O2SAT 98
[2023-07-30 13:49] LABS: INTERNATIONAL NORM RATIO 1.1 (0.9-1.1); Prothrombin Time 12.9 SEC (11.1-13.3)
[2023-07-30 13:51] LABS: Partial Thromboplastin Time 30.6 SEC (26.0-36.8)
[2023-07-30 13:59] LABS: Alanine Aminotransferase 34 U/L (0-31); Albumin Level 4.2 g/dL (3.5-5.0); Alkaline Phosphatase 69 U/L (39-117); Anion Gap 15 (12-20); Aspartate Amino Transferase 30 U/L (5-31); Bilirubin Total 0.2 mg/dL (0.0-1.0); Blood Urea Nitrogen 20 mg/dL (9-16); Calcium 9.8 mg/dL (8.4-10.2); Carbon Dioxide 23 mmol/L (22-29); Chloride 108 mmol/L (96-108); Creatinine Clr Calc Pharmacy 77.5; Estimated Glomerular Filt Rate > 60; Glucose Random 170 mg/dL (60-115); Potassium 4.2 mmol/L (3.3-5.1); Sodium 142 mmol/L (135-145); Total Protein 7.6 g/dL (6.5-8.0)
[2023-07-30 14:02] LABS: B Type Natriuretic Peptide 45 pg/mL (<100)
[2023-07-30 14:07] LABS: Troponin-I High Sensitivity < 2.7 ng/L (<3.5-17.0)
[2023-07-30] MEDS: methylPREDNISolone Sod Succ 125 MG/2 ML VIAL IVPUSH (14:08)
[2023-07-30] MEDS: Magnesium Sulfate/H2O 2 GM/50 ML PIGGYBACK IV (14:08)
[2023-07-30 14:19] LABS: Influenza A PCR NEGATIVE (Negative); Influenza B PCR NEGATIVE (Negative); Resp Syncy Virus RNA Qual PCR NEGATIVE (Negative); SARS COV2 PCR INHOUSE NEGATIVE (Negative)
[2023-07-30] MEDS: Albuterol/Iprat 2.5/0.5MG 3 ML AMPUL.NEB INHALE (14:34)
[2023-07-30 16:00] VITALS: BP 130/70; PULSE 99; RESP 18; O2SAT 97
[2023-07-30 16:20] VITALS: O2SAT 99
[2023-07-30 16:38] VITALS: BP 130/70; PULSE 99; RESP 18; TEMP 37; O2SAT 97
== END 2023-07-30 16:37 | disposition home or self-care (01) ==
PROVIDERS: Physician Assistant; Emergency Provider Emergency Medicine; PCP Family Medicine
DX: J45.901 Unspecified asthma with (acute) exacerbation (principal); R00.0 Tachycardia, unspecified; R06.02 Shortness of breath; R05.9 Cough, unspecified; Z11.52 Encounter for screening for COVID-19; Z20.822 Contact with and (suspected) exposure to COVID-19; Z79.899 Other long term (current) drug therapy
CPT/HCPCS: 0241U; 36415; 71045; 80053; 83880; 84484; 85025; 85610; 85730; 93005; 94640; 96374; 96375; 99284; 99285; J2930; J3475

== ENCOUNTER → 2023-07-30 13:20 | Outpatient (BNV) | payer OTHER, SELFPAY | PROVIDERS: Emergency Provider Emergency Medicine; PCP Family Medicine; Visit Provider Internal Medicine Cardiovascular Disease | DX: R00.0 Tachycardia, unspecified (principal) | CPT/HCPCS: 93010 ==

== ENCOUNTER 2023-07-31 15:23 | Inpatient (IN) | payer OTHER, SELFPAY ==
--- NOTE | ~2023-07-31 | XR_ITS ---
EXAMINATION: XR CHEST CLINICAL INFORMATION: Shortness of breath COMPARISON: 07/30/2023 TECHNIQUE: 2 views of the chest were obtained. FINDINGS: Heart size normal. Prominent pericardial fat. Pulmonary vessels are of normal caliber. Lungs are clear. No pleural effusions. XR/XR chest 2V IMPRESSION: Unremarkable examination.
[2023-07-31 15:27] VITALS: BP 138/78; PULSE 103; RESP 18; TEMP 36.7; O2SAT 93; BMI 38.1
--- NOTE | 2023-07-31 15:29 | ED_ITS ---
HPI - SOB/Dyspnea General Chief Complaint: Upper Respiratory Symptoms Stated Complaint: asthma, SOB Time Seen by Provider: 07/31/23 15:44 Source: patient Mode of arrival: ambulatory Limitations: no limitations History of Present Illness HPI Narrative: This is a 58-year-old female, with a history of asthma, presenting to the emergency department with complaints of shortness of breath, wheezing, cough, and congestion x2 days. Patient states she has been wheezing a lot, was seen here yesterday and went home however continues to worsen per patient. She has been using her inhalers and nebulizer machine at home which hasnt provided much relief. She denies any fevers, chills, sore throat, ear pain, chest pain, abdominal pain, nausea, vomiting or diarrhea. Denies sick contacts. No other complaints or concerns at this time. Related Data Home Medications Medication Instructions Recorded Confirmed albuterol sulfate 90 mcg/actuation 2 puff inhalation QID PRN Wheezing 07/31/23 07/31/23 aerosol inhaler [id number] 250 1 tab PO Q4-6H PRN Migraine 07/31/23 07/31/23 mg-250 mg-65 mg tablet (Excedrin Headache Migraine) cholecalciferol (vitamin D3) 25 25 mcg PO DAILY 07/31/23 07/31/23 mcg (1,000 unit) tablet (Vitamin D3) diphenhydramine HCl 25 mg capsule 25 mg PO TID PRN allergies 07/31/23 07/31/23 (Benadryl) prednisone 20 mg tablet 40 mg PO DAILY 07/31/23 07/31/23 Previous Rx's Medication Instructions Recorded metformin 500 mg tablet 500 mg PO DAILY 90 days #90 tabs 09/27/22 omeprazole 20 mg capsule,delayed 20 mg PO DAILY 90 days #90 caps 03/12/23 release nebulizers (Compact Compressor #1 ea 06/05/23 Nebulizer) albuterol sulfate 2.5 mg/3 mL 2.5 mg (3 mL) inhalation Q4-6H PRN 06/16/23 (0.083 %) solution for nebulization shortness of breath or wheezing #75 mL lisinopril 5 mg tablet 5 mg PO DAILY 90 days #90 tabs 06/17/23 diltiazem HCl 60 mg 60 mg PO QAM 90 days #90 caps 07/03/23 capsule,extended release 12 hr Allergies Allergy/AdvReac Type Severity Reaction Status Date / Time No Known Allergies Allergy Verified 06/30/23 09:45 Review of Systems 2 Review of Systems: Yes all other systems are reviewed and are negative [facility] Past Medical History Attestation statement: The following information was validated with the patient. Source: old records reviewed and nursing notes reviewed Medical History Foul smelling urine Obesity Elevated fasting glucose Foot pain Screening for cervical cancer Breast cancer screening Screening for colon cancer Adult general medical examination Rash Laboratory exam ordered as part of routine general medical examination Prediabetes Asthma Kidney stone Hernia Surgical History History of ureteroscopy History of herniorrhaphy Family History Family History Maternal Grandmother Alzheimer's dementia Osteoarthritis Father Diabetes Social History Social History Housing: Apartment Are you a primary adult care manager to a significant other at home: No Do you presently have visiting nurse or other home services: No Patient Tobacco Use Status: Former Tobacco user Quit Date: 3 Years ago Tobacco use type: Cigarette Cigarette Packs Per Day: 1 (1 pack per 2 days) Cigarettes Per Day: 10 e-Cigarette/Vaping Use: Never Used Second Hand Smoke Exposure: Yes (Due to where patient lives.) Advance Directives: No Advance Directives Information Provided: No service: No Current occupational status: unemployed Current occupational exposures/hazards: No Cognitive needs: No Hearing needs: Yes Vision needs: Yes Physical Exam 2 Vital Signs: Vital Signs: Last Vital Signs Temp 98.0 F 07/31/23 15:27 Pulse 86 07/31/23 21:06 Resp 20 07/31/23 21:06 BP 138/78 07/31/23 15:27 Pulse Ox 91 L 07/31/23 18:42 O2 Del Method Room Air 07/31/23 18:42 BMI result Body Mass Index 38.1 vss Appearance: Alert.? Oriented X3.? Mild/moderate acute distress.? Head: Normocephalic, atraumatic, no step-offs or deformities Eyes: Pupils equal, round and reactive to light.? Neck: Normal inspection.? Neck supple.? CVS: Normal heart rate and rhythm.? Pulses normal.? Respiratory: + mild/mod respiratory distress.? Breath sounds w/ b/l wheezing throughout.? Abdomen: Soft and nontender.? Skin: Skin warm and dry.? Normal skin color.? Normal skin turgor.? Extremities: No lower extremity edema.? No calf ttp. 5/5 strength to bilateral upper and lower extremitie Neuro: Oriented X 3.? No motor deficit.? No sensory deficit. CN 2-12 intact Course Course Course Narrative: This is an RME: Additional HPI, ROS, PE not included below will be deferred to primary provider. This is a 58-year-old female presenting to the emergency department with complaints of shortness breath, cough. Patient was seen here yesterday and was given IV Solu-Medrol, magnesium, and multiple updrafts which provided her with some relief. She is here today as her symptoms have worsened. Oxygen saturation 95% on room air. Patient brought back to room for further evaluation. Reevaluation(s) Reevaluation #1: CBC with leukocytosis and left shift. I do not suspect sepsis. Chemistry with no acute findings requiring intervention. Troponin negative, EKG nonischemic. Flu, COVID, RSV negative. Chest x-ray unremarkable. Ambulatory O2 patient is saturating 91% still audible wheezing and labored breathing. This is patient's 2nd visit back. Due to the leukocytosis I will add ceftriaxone and azithromycin for possible bronchitis. No signs of pneumonia. Plan at this time hospital admission for asthma with acute exacerbation and bronchitis. Time: 18:50 Medications Administered Generic Name Dose Route Start Last Admin Trade Name Freq PRN Reason Stop Dose Admin Albuterol/Ipratropium 3 ml 07/31/23 20:00 07/31/23 21:06 Albuterol/Iprat 2.5/0.5mg 3 Ml Ampul.Neb INHALE 3 ml RQ4H WHILE AWAKE AMARI Administration Enoxaparin Sodium 40 mg 07/31/23 20:00 07/31/23 21:20 Enoxaparin Sodium 40 Mg/0.4 Ml Syringe SUBCUT Not Given Q24H AMARI Discontinued Medications Generic Name Dose Route Start Last Admin Trade Name Freq PRN Reason Stop Dose Admin Albuterol Sulfate 7.5 mg/ 0 mg 07/31/23 15:59 07/31/23 16:09 Albuterol/Ipratropium 3 ml INHALE 07/31/23 16:00 1 each ONCE ONE Administration Magnesium Sulfate 2 gm in 50 mls @ 25 mls/hr 07/31/23 17:56 07/31/23 20:20 Magnesium Sulfate/H2o IV 07/31/23 19:55 Infused ONCE ONE Infusion Ceftriaxone Sodium 1 gm/ 50 mls @ 100 mls/hr 07/31/23 18:50 07/31/23 20:30 Sodium Chloride IV 07/31/23 19:19 Infused ONCE ONE Infusion Azithromycin 500 mg/ Sodium 250 mls @ 125 mls/hr 07/31/23 18:50 07/31/23 20:44 Chloride IV 07/31/23 20:49 125 mls/hr ONCE ONE Administration Methylprednisolone Sodium Succinate 125 mg 07/31/23 17:56 07/31/23 18:15 Methylprednisolone Sod Succ 125 Mg/2 Ml Vial IVPUSH 07/31/23 17:57 125 mg ONCE ONE Administration Medical Decision Making Medical Decision Making [facility] Narrative: 1549 58 year old female presents w/ worsening sob, cough, wheezing seen here yesterday, states feeling worse. PE- diffuse wheezing. Hx and pe concerning for asthma vs uri w/ mild / mod acute repsiratory distress. Unlikley pe, pna, acs, dissection . I am concerned for bronchitis. Plan- labs, viral test , cxr, bronch protocol Differential Diagnosis Differential Diagnoses: The differential diagnosis associated with the presentation includes Hx and pe concerning for asthma vs uri w/ mild / mod acute repsiratory distress. Unlikley pe, pna, acs, dissection . . I am concerned for bronchitis. Admission/Observation Consideration of admission/observation: Escalation of care including admission/observation considered Lab Data [facility] Lab Attestation statement: I reviewed the patient's lab results. 07/31/23 16:47 07/31/23 16:47 Labs: Lab Results 07/31/23 07/31/23 Range/Units 16:47 17:22 WBC 13.8 H (4.8-10.8) X10*3/uL RBC 4.29 (4.20-5.50) X10*6/uL Hgb 13.2 (12.0-16.0) g/dl Hct 40.3 (37.0-47.0) % MCV 93.9 (80.0-98.0) fL MCH 30.8 (27.0-33.0) pg MCHC 32.8 (31.0-35.0) g/dl RDW 14.7 (11.0-16.0) % Plt Count 324 (160-400) X10*3/uL MPV 8.8 L (9.4-12.3) fL Immature Gran % (Auto) 1.4 H (0.0-0.4) % Neut % (Auto) 82.7 H (45-73) % Lymph % (Auto) 8.4 L (20-40) % [place] % (Auto) 7.4 (2-11) % Eos % (Auto) 0.0 (0-4) % Baso % (Auto) 0.1 (0-2) % Lymph # (Auto) 1.2 (1.2-4.9) X10*3/uL [place] # (Auto) 1.0 (0.1-1.2) X10*3/uL Eos # (Auto) 0.0 (0.0-0.4) X10*3/uL Baso # (Auto) 0.0 (0.0-0.2) X10*3/uL Abs Immat Gran (auto) 0.19 H (0.00-0.03) X10*3/uL Absolute Neuts (auto) 11.4 H (2.0-8.3) x10*3/uL Absolute Nucleated RBC 0.000 (0.0-0.012) X10*3/uL Nucleated RBC % (auto) 0.0 (0.0-0.2) /100WBC Sodium 146 H (135-145) mmol/L Potassium 4.8 (3.3-5.1) mmol/L Chloride 110 H (96-108) mmol/L Carbon Dioxide 28 (22-29) mmol/L Anion Gap 13 (12-20) BUN 20 H (9-16) mg/dL Creatinine 0.98 (0.5-1.4) mg/dL Estim Creat Clear Calc 66.1 Estimated GFR 58 Random Glucose 123 H (60-115) mg/dL Calcium 9.5 (8.4-10.2) mg/dL Magnesium 2.4 (1.6-2.6) mg/dL Total Bilirubin 0.2 (0.0-1.0) mg/dL Direct Bilirubin < 0.2 (0.0-0.5) mg/dL AST 22 (5-31) U/L ALT 34 H (0-31) U/L Alkaline Phosphatase 64 (39-117) U/L Troponin I High Sens < 2.7 (<3.5-17.0) ng/L B-Natriuretic Peptide 21 (<100) pg/mL Total Protein 7.4 (6.5-8.0) g/dL Albumin 4.3 (3.5-5.0) g/dL Influenza Type A (PCR) NEGATIVE (Negative) Influenza Type B (PCR) NEGATIVE (Negative) RSV RNA Qual (PCR) NEGATIVE (Negative) SARS-CoV-2 RNA (RT-PCR) NEGATIVE (Negative) Independent Interpretation I performed an independent interpretation of an: Plain X-Ray (XR/XR chest 1V IMPRESSION: Stable appearance of the heart and lungs. No active disease.) Radiology Impression Discussion of test interpretation with radiology: I have reviewed the radiologist's reading. External Record Review External record reviewed: Inpatient record, Office record, Outpatient record, Prior outpatient labs, Prior outpatient radiology, Primary care record and Outside ED record Chronic Conditions Patient?s care impacted by: Other (asthma, anxiety, gerd, ) Critical Care Time Critical Care Time Critical Care Time: Yes Total Critical Care Time: 45 Attestation: I attest to this time spent taking care of the patient, obtaining history, physical, reviewing labs, imaging, speaking to my attending, speaking to specialist. Discharge Plan Discharge Clinical Impression: Asthma exacerbation, Bronchitis Patient Disposition: Admitted As Inpatient
--- NOTE | 2023-07-31 15:32 | ECG_ITS ---
Test Reason : sob Blood Pressure : / mmHG Vent. Rate : 101 BPM Atrial Rate : 101 BPM P-R Int : 136 ms QRS Dur : 086 ms QT Int : 350 ms P-R-T Axes : 075 067 064 degrees QTc Int : 453 ms Sinus tachycardia Otherwise normal ECG When compared with ECG of 30-JUL-2023 13:25, No significant change was found Referred By: Radha Gregorio Electronically Signed By:Gerardo Dodson
[2023-07-31 16:09] VITALS: PULSE 89; RESP 20; O2SAT 93
[2023-07-31] MEDS: Albuterol Sulfate 7.5 MG, Albuterol/Iprat 2.5/0.5MG 3 ML 3 ML INHALE (16:09)
[2023-07-31 16:52] LABS: MANUAL DIFF FLAG NO
[2023-07-31 16:54] LABS: Basophils Percent Auto 0.1 % (0-2); Hematocrit 40.3 % (37.0-47.0); Hemoglobin 13.2 g/dl (12.0-16.0); Imm Gran Abs Auto 0.19 X10*3/uL (0.00-0.03); Imm Gran Pct Auto 1.4 % (0.0-0.4); Lymphocytes Absolute Auto 1.2 X10*3/uL (1.2-4.9); Lymphocytes Percent Auto 8.4 % (20-40); Mean Corpuscular HGB Conc 32.8 g/dl (31.0-35.0); Mean Corpuscular Hemoglobin 30.8 pg (27.0-33.0); Mean Corpuscular Volume 93.9 fL (80.0-98.0); Mean Platelet Volume 8.8 fL (9.4-12.3); Monocytes Percent Auto 7.4 % (2-11); Neutrophils Absolute Auto 11.4 x10*3/uL (2.0-8.3); Neutrophils Percent Auto 82.7 % (45-73); Platelet Count 324 X10*3/uL (160-400); Red Blood Count 4.29 X10*6/uL (4.20-5.50); Red Cell Distribution Width 14.7 % (11.0-16.0); White Blood Count 13.8 X10*3/uL (4.8-10.8)
[2023-07-31 17:19] LABS: Alanine Aminotransferase 34 U/L (0-31); Albumin Level 4.3 g/dL (3.5-5.0); Alkaline Phosphatase 64 U/L (39-117); Anion Gap 13 (12-20); Aspartate Amino Transferase 22 U/L (5-31); Bilirubin Direct < 0.2 mg/dL (0.0-0.5); Bilirubin Total 0.2 mg/dL (0.0-1.0); Blood Urea Nitrogen 20 mg/dL (9-16); Calcium 9.5 mg/dL (8.4-10.2); Carbon Dioxide 28 mmol/L (22-29); Chloride 110 mmol/L (96-108); Creatinine Clr Calc Pharmacy 66.1; Estimated Glomerular Filt Rate 58; Glucose Random 123 mg/dL (60-115); Magnesium 2.4 mg/dL (1.6-2.6); Potassium 4.8 mmol/L (3.3-5.1); Sodium 146 mmol/L (135-145); Total Protein 7.4 g/dL (6.5-8.0)
[2023-07-31 17:24] LABS: B Type Natriuretic Peptide 21 pg/mL (<100)
[2023-07-31 17:28] LABS: Troponin-I High Sensitivity < 2.7 ng/L (<3.5-17.0)
[2023-07-31] MEDS: methylPREDNISolone Sod Succ 125 MG/2 ML VIAL IVPUSH (18:15)
[2023-07-31] MEDS: Magnesium Sulfate/H2O 2 GM/50 ML PIGGYBACK IV (18:19)
[2023-07-31 18:22] LABS: Influenza A PCR NEGATIVE (Negative); Influenza B PCR NEGATIVE (Negative); Resp Syncy Virus RNA Qual PCR NEGATIVE (Negative); SARS COV2 PCR INHOUSE NEGATIVE (Negative)
[2023-07-31 18:42] VITALS: O2SAT 91
--- NOTE | 2023-07-31 19:48 | P.HPHOSP_ITS ---
History of Present Illness Date of Service: 07/31/23 Chief Complaint: Dyspnea This is a 58-year-old female with pertinent history of asthma not on home oxygen, gastroesophageal reflux disease, essential hypertension who presents to the emergency department for evaluation of dyspnea. Patient was seen in the ER 1 day prior to presentation and discharged prescription for p.o. prednisone. Patient states her symptoms continued which prompted ER visit again. She has been having dyspnea which is worse with exertion. Also has associated wheezing and nonproductive cough. No fever, chills, palpitations, chest discomfort, abdominal pain, changes in urinary or bowel habits. In the emergency department, patient with continued wheezing and tachypnea despite multiple DuoNeb treatments. Patient received IV magnesium and IV steroids in the ER. Review of Systems 2 Constitutional: Constitutional: Reports fatigue and Reports malaise Cardiovascular: Cardiovascular: Reports dyspnea on exertion Respiratory: Respiratory: Reports cough, Reports dyspnea on exertion and Reports wheezing Gastrointestinal: Gastrointestinal: Reports no additional gastrointestinal complaints Genitourinary: Genitourinary: Reports no additional female genitourinary complaints Neurologic: Reports system reviewed and no additional complaints, except as documented Psychiatric: Psychiatric: Reports no additional psychiatric complaints Endocrine: Endocrine: Reports fatigue Allergic/Immunologic: Allergic/Immunologic: Reports wheezing PMFSH Medical History Foul smelling urine Obesity Elevated fasting glucose Foot pain Screening for cervical cancer Breast cancer screening Screening for colon cancer Adult general medical examination Rash Laboratory exam ordered as part of routine general medical examination Prediabetes Asthma Kidney stone Hernia Family History Maternal Grandmother Alzheimer's dementia Osteoarthritis Father Diabetes Surgical History History of ureteroscopy History of herniorrhaphy Social History Housing: Apartment Are you a primary healthcare consultant to a significant other at home: No Do you presently have visiting nurse or other home services: No Patient Tobacco Use Status: Former Tobacco user Quit Date: 3 Years ago Tobacco use type: Cigarette Cigarette Packs Per Day: 1 (1 pack per 2 days) Cigarettes Per Day: 10 e-Cigarette/Vaping Use: Never Used Second Hand Smoke Exposure: Yes (Due to where patient lives.) Advance Directives: No Advance Directives Information Provided: No service: No Current occupational status: unemployed Current occupational exposures/hazards: No Cognitive needs: No Hearing needs: Yes Vision needs: Yes Meds Allergies Allergy/AdvReac Type Severity Reaction Status Date / Time No Known Allergies Allergy Verified 06/30/23 09:45 Active Medications: Current Medications Acetaminophen (Acetaminophen 325 Mg Tablet) 650 mg PO Q6H PRN PRN Reason: Pain, Mild (Pain Scale 1-3) Enoxaparin Sodium (Enoxaparin Sodium 40 Mg/0.4 Ml Syringe) 40 mg SUBCUT Q24H AMARI Magnesium Sulfate (Magnesium Sulfate/H2o) 2 gm in 50 mls @ 25 mls/hr IV ONCE ONE Stop: 07/31/23 19:55 Last Admin: 07/31/23 18:19 Dose: 25 mls/hr Azithromycin 500 mg/ Sodium (Chloride) 250 mls @ 125 mls/hr IV ONCE ONE Stop: 07/31/23 20:49 Ondansetron HCl (Ondansetron Hcl 4 Mg/2 Ml Vial) 4 mg IVPUSH Q8H PRN PRN Reason: Nausea and Vomiting Sodium Chloride (0.9 % Sodium Chloride Flush 3 Ml Syringe) 3 ml IVFLUSH QSHIFT [facility] Home Medications Medication Instructions Recorded Confirmed Last Taken Type albuterol sulfate 90 mcg/actuation 2 puff inhalation QID PRN Wheezing 07/31/23 07/31/23 07/31/23 History aerosol inhaler [id number]-[id number]-tlpsakwq 250 1 tab PO Q4-6H PRN Migraine 07/31/23 07/31/23 Unknown History mg-250 mg-65 mg tablet (Excedrin Headache Migraine) cholecalciferol (vitamin D3) 25 25 mcg PO DAILY 07/31/23 07/31/23 07/31/23 History mcg (1,000 unit) tablet (Vitamin D3) diphenhydramine HCl 25 mg capsule 25 mg PO TID PRN allergies 07/31/23 07/31/23 Unknown History (Benadryl) prednisone 20 mg tablet 40 mg PO DAILY 07/31/23 07/31/23 07/31/23 History Physical Exam 2 Vital Signs and Narrative: Vital Signs: Last Vital Signs Temp 98.0 F 07/31/23 15:27 Pulse 89 07/31/23 16:09 Resp 20 07/31/23 16:09 BP 138/78 07/31/23 15:27 Pulse Ox 91 L 07/31/23 18:42 O2 Del Method Room Air 07/31/23 18:42 BMI result Body Mass Index 38.1 Middle-aged female lying in bed in mild distress Neck supple, no JVD Regular rate and rhythm, S1-S2 heard Bilateral wheezing appreciated Abdomen soft nontender, no guarding, no rigidity Patient is awake, alert and oriented to self, place, time and person ; no focal motor deficit Psych: Normal mood No pedal edema Results Labs 07/31/23 16:47 07/31/23 16:47 Labs: Laboratory Results - last 24 hr 07/31/23 07/31/23 16:47 17:22 MCV 93.9 MCH 30.8 MCHC 32.8 RDW 14.7 Plt Count 324 MPV 8.8 L Immature Gran % (Auto) 1.4 H Neut % (Auto) 82.7 H Lymph % (Auto) 8.4 L [place] % (Auto) 7.4 Eos % (Auto) 0.0 Baso % (Auto) 0.1 Lymph # (Auto) 1.2 [place] # (Auto) 1.0 Eos # (Auto) 0.0 Baso # (Auto) 0.0 Abs Immat Gran (auto) 0.19 H Absolute Neuts (auto) 11.4 H Absolute Nucleated RBC 0.000 Nucleated RBC % (auto) 0.0 Anion Gap 13 Estim Creat Clear Calc 66.1 Estimated GFR 58 Random Glucose 123 H Calcium 9.5 Magnesium 2.4 Total Bilirubin 0.2 Direct Bilirubin < 0.2 AST 22 ALT 34 H Alkaline Phosphatase 64 Troponin I High Sens < 2.7 B-Natriuretic Peptide 21 Total Protein 7.4 Albumin 4.3 Influenza Type A (PCR) NEGATIVE Influenza Type B (PCR) NEGATIVE RSV RNA Qual (PCR) NEGATIVE SARS-CoV-2 RNA (RT-PCR) NEGATIVE Imaging Radiologist's Impressions: Impressions Chest X-Ray 07/31/23 16:28 IMPRESSION: Unremarkable examination. Assessment and Plan (1) Asthma exacerbation: Status: Acute Plan This is a 58-year-old female with pertinent history of asthma not on home oxygen, gastroesophageal reflux disease, essential hypertension who presents to the emergency department for evaluation of dyspnea. #. Acute respiratory distress due to acute exacerbation of asthma: Will admit patient and continue IV systemic steroids. Scheduled and p.r.n. DuoNebs. Continue home inhaler. #. Tjz-vlqbiif-qplgandlu diabetes mellitus: Initiating Accu-Cheks with sliding scale insulin #. Obesity: Counseled regarding diet and exercise #. Gastroesophageal reflux disease: On PPI #. Essential hypertension: On lisinopril and diltiazem DVT prophylaxis: Lovenox Full code Quality Stroke Does the patient have a stroke diagnosis?: No VTE Prior VTE?: No VTE Risk Level:: Medical - moderate - high VTE Device Contraindication: Treatment Not Indicated VTE Drug Contraindication: N/A - Med Ordered
[2023-07-31] MEDS: cefTRIAXone sodium 1 GM in 0.9 % Sodium Chloride 50 ML IV (20:01)
--- NOTE | 2023-07-31 20:31 | PHA.MEDREC ---
Pharmacy Consult ? Medication Reconciliation Pharmacy has completed the medication reconciliation. 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 Patient reports she started a 4 day round of Predisone 20mg 2 daily. She has bottle with her. Prescription has not shown up in claim history yet.
[2023-07-31] MEDS: Azithromycin 500 MG in 0.9 % Sodium Chloride 250 ML 125 MG IV (20:44)
[2023-07-31 21:06] VITALS: PULSE 86; RESP 20; O2SAT 93
[2023-07-31] MEDS: Albuterol/Iprat 2.5/0.5MG 3 ML AMPUL.NEB INHALE (21:06)
[2023-07-31 21:43] VITALS: PULSE 83; O2SAT 99
[2023-07-31 21:48] VITALS: BP 126/71; PULSE 99; RESP 16; TEMP 36.9; O2SAT 93
--- NOTE | 2023-07-31 22:07 | PC.NURSE ---
20G Iv in l-ac infiltrated during abx infusion- this nurse attempted x2 to re-estblish access, unable to obtain at this time.
[2023-07-31 22:59] LABS: Glucose, Whole Blood 157 mg/dL (60-115)
[2023-07-31] MEDS: 0.9 % Sodium Chloride 500 ML IV (23:37)
[2023-08-01] VITALS (10 sets, daily range): BP systolic 120–140; BP diastolic 61–82; PULSE 76–98; RESP 15–20; TEMP 36.3–36.7; O2SAT 93–95
[2023-08-01 05:59] LABS: Glucose, Whole Blood 140 mg/dL (60-115)
[2023-08-01] MEDS: Omeprazole 20 MG CAPSULE.DR PO (07:27)
[2023-08-01] MEDS: 0.9 % Sodium Chloride Flush 3 ML SYRINGE IVFLUSH ×3 (07:28→23:42)
[2023-08-01] MEDS: Albuterol/Iprat 2.5/0.5MG 3 ML AMPUL.NEB INHALE ×4 (07:53→20:07)
[2023-08-01 07:56] LABS: Glucose, Whole Blood 122 mg/dL (60-115)
[2023-08-01 08:08] LABS: MANUAL DIFF FLAG NO
[2023-08-01 08:28] LABS: Basophils Percent Auto 0.2 % (0-2); Eosinophils Percent Auto 0.1 % (0-4); Hemoglobin 12.6 g/dl (12.0-16.0); Imm Gran Abs Auto 0.14 X10*3/uL (0.00-0.03); Imm Gran Pct Auto 1.3 % (0.0-0.4); Lymphocytes Percent Auto 8.8 % (20-40); Mean Corpuscular HGB Conc 32.3 g/dl (31.0-35.0); Mean Corpuscular Hemoglobin 30.7 pg (27.0-33.0); Mean Corpuscular Volume 94.9 fL (80.0-98.0); Mean Platelet Volume 9.3 fL (9.4-12.3); Monocytes Absolute Auto 0.3 X10*3/uL (0.1-1.2); Neutrophils Absolute Auto 9.5 x10*3/uL (2.0-8.3); Neutrophils Percent Auto 86.6 % (45-73); Platelet Count 310 X10*3/uL (160-400); Red Blood Count 4.11 X10*6/uL (4.20-5.50); Red Cell Distribution Width 14.6 % (11.0-16.0)
[2023-08-01 08:34] LABS: Anion Gap 13 (12-20); Blood Urea Nitrogen 20 mg/dL (9-16); Carbon Dioxide 28 mmol/L (22-29); Chloride 109 mmol/L (96-108); Creatinine Clr Calc Pharmacy 87.6; Estimated Glomerular Filt Rate > 60; Glucose Random 134 mg/dL (60-115); Potassium 4.8 mmol/L (3.3-5.1); Sodium 145 mmol/L (135-145)
[2023-08-01 09:29] LABS: Adenovirus PCR Not Detected (Not Detect.); Bordetella parapertussis PCR Not Detected (Not Detect.); Bordetella pertussis PCR Not Detected (Not Detect.); Chlamydia pneumoniae PCR Not Detected (Not Detect.); Coronavirus 229E PCR Detected (Not Detect.); Coronavirus HKU1 PCR Not Detected (Not Detect.); Coronavirus NL63 PCR Not Detected (Not Detect.); Coronavirus OC43 PCR Not Detected (Not Detect.); Human metapneumovirus PCR Not Detected (Not Detect.); Influenza A PCR Not Detected (Not Detect.); Influenza B PCR Not Detected (Not Detect.); Mycoplasma pneumoniae PCR Not Detected (Not Detect.); Parainfluenza 1 PCR Not Detected (Not Detect.); Parainfluenza 2 PCR Not Detected (Not Detect.); Parainfluenza 3 PCR Detected (Not Detect.); Parainfluenza 4 PCR Not Detected (Not Detect.); RSV PCR Not Detected (Not Detect.); Rhino/Enterovirus PCR Not Detected (Not Detect.)
[2023-08-01] MEDS: Cholecalciferol (Vitamin D3) 25 MCG TABLET PO (09:47)
[2023-08-01] MEDS: lisinopriL 5 MG TABLET PO (09:47)
[2023-08-01] MEDS: methylPREDNISolone Sod Succ 40 MG/ML VIAL IVPUSH ×2 (09:49→21:03)
--- NOTE | 2023-08-01 10:01 | PC.NURSE ---
Diltiazem late due to waiting for med from pharmacy. Pt is resting in bed, no acute distress, denies pain and VSS.
--- NOTE | 2023-08-01 10:18 | PC.NURSE ---
Pt reports right sided chest pain starting now, reports it feels like a muscle ache but is unsure. VSS and pt is NSR on classroom monitor. Admitting PA is notified of pts new complaint and status.
[2023-08-01 10:35] LABS: SARS-CoV-2 PCR Not Detected (Not Detect.)
--- NOTE | 2023-08-01 10:38 | PC.NURSE ---
Pharmacy reports Diltiazem SR is not available in hospital and they reached out to provider to potentially change order.
[2023-08-01 11:57] LABS: Glucose, Whole Blood 107 mg/dL (60-115)
--- NOTE | 2023-08-01 12:50 | MHC.CM.PN ---
Met with patient and day care worker in regards to discharge planning. Patient lives with her daughter, ambulates independently and had no services prior to coming to the hospital. No services anticipated to be needed because patient is not homebound. PCP verified as Oj Aparicio. HCP completed, signed and witnessed. Original given to patient. Copy placed in chart. Obs notice explained and signed. Patient's daughter will transport patient home when medically stable. Continue to monitor for d/c needs.
--- NOTE | 2023-08-01 15:38 | P.PNIM_ITS ---
Subjective Subjective Date of Service: 08/01/23 Interval History: seen and examined this morning follow up for asthma exacerbation history obtained with the assistance of a accountant budget still reporting tightness and wheezing, sob Review of Systems Review of Systems: Yes all other systems are reviewed and are negative Constitutional Constitutional: Denies chills and Denies fever(s) Cardiovascular Cardiovascular: Denies palpitations and Reports dyspnea Respiratory Respiratory: Reports cough and Reports dyspnea Endocrine Endocrine: Denies palpitations Physical Exam 2 Vital Signs: Vital Signs: Last Vital Signs Temp 97.9 F 08/01/23 07:44 Pulse 94 08/01/23 11:34 Resp 19 08/01/23 11:34 BP 133/82 08/01/23 09:49 Pulse Ox 94 08/01/23 09:49 O2 Del Method Room Air 08/01/23 09:49 BMI result Body Mass Index 38.1 Const: General: cooperative, comfortable, alert and awake Nutritional Appearance: overweight Orientation/consciousness: patient oriented x3 Resp: Other: b/l expiratory wheezing Effort & Inspection: normal respiratory effort and able to speak in complete sentences Cardio: Rate: regular rate GI: Inspection: No distended Palpation (GI): Soft to palpation and nontender Neuro: General: patient oriented x3, moves all extremities and CN's II-XI intact bilaterally Extrem: General: Yes no pedal edema Objective Data Active Medications Acetaminophen (Acetaminophen 325 Mg Tablet) 650 mg PO Q6H PRN PRN Reason: Pain, Mild (Pain Scale 1-3) Albuterol/Ipratropium (Albuterol/Iprat 2.5/0.5mg 3 Ml Ampul.Neb) 3 ml INHALE RQ4H WHILE AWAKE [facility] Last Admin: 08/01/23 11:34 Dose: 3 ml Documented By: SUSHIL Albuterol/Ipratropium (Albuterol/Iprat 2.5/0.5mg 3 Ml Ampul.Neb) 3 ml INHALE Q4H PRN PRN Reason: Wheezing Dextrose (Dextrose 50 % 25 Gm/50 Ml Syringe) 25 gm IVPUSH Q15M PRN; Protocol PRN Reason: per Hypoglycemia Standing Ord. Diltiazem HCl (Diltiazem Hcl Sr 60 Mg Cap.Er.12h) 60 mg PO DAILY [facility]; Protocol Last Admin: 08/01/23 10:23 Dose: Not Given Documented By: FERNANDA Non-Admin Reason: Pharmacy reports med not available at all Diphenhydramine HCl (Diphenhydramine Hcl 25 Mg Capsule) 25 mg PO TID PRN PRN Reason: allergies Enoxaparin Sodium (Enoxaparin Sodium 40 Mg/0.4 Ml Syringe) 40 mg SUBCUT Q24H [facility] Last Admin: 07/31/23 21:20 Dose: Not Given Documented By: MELVI Non-Admin Reason: Patient Refused Glucose (Glucose Gel 15 Gm Gel..Gram.) 15 gm PO Q15M PRN; Protocol PRN Reason: per Hypoglycemia Standing Ord. Insulin Human Lispro (Insulin Lispro 100 Unit/Ml 3 Ml Vial) 0 unit SUBCUT QIDACHS [facility]; Protocol Last Admin: 08/01/23 11:55 Dose: Not Given Documented By: FERNANDA Non-Admin Reason: No Insulin Coverage Lisinopril (Lisinopril 5 Mg Tablet) 5 mg PO DAILY [facility]; Protocol Last Admin: 08/01/23 09:47 Dose: 5 mg Documented By: FERNANDA Melatonin (Melatonin 3 Mg Tablet) 6 mg PO BEDTIME PRN PRN Reason: Insomnia Methylprednisolone Sodium Succinate (Methylprednisolone Sod Succ 40 Mg/Ml Vial) 40 mg IVPUSH Q12H [facility] Last Admin: 08/01/23 09:49 Dose: 40 mg Documented By: FERNANDA Omeprazole (Omeprazole 20 Mg Capsule.) 20 mg PO DAILY@0630 [facility] Last Admin: 08/01/23 07:27 Dose: 20 mg Documented By: FERNANDA Ondansetron HCl (Ondansetron Hcl 4 Mg/2 Ml Vial) 4 mg IVPUSH Q8H PRN PRN Reason: Nausea and Vomiting Sodium Chloride (0.9 % Sodium Chloride Flush 3 Ml Syringe) 3 ml IVFLUSH QSHIFT [facility] Last Admin: 08/01/23 07:28 Dose: 3 ml Documented By: FERNANDA Vitamin D (Cholecalciferol (Vitamin D3) 25 Mcg Tablet) 25 mcg PO DAILY [facility] Last Admin: 08/01/23 09:47 Dose: 25 mcg Documented By: FERNANDA Labs 08/01/23 07:49 08/01/23 07:49 Labs: Laboratory Results - last 24 hr 07/31/23 07/31/23 07/31/23 16:47 17:22 22:54 MCV 93.9 MCH 30.8 MCHC 32.8 RDW 14.7 Plt Count 324 MPV 8.8 L Immature Gran % (Auto) 1.4 H Neut % (Auto) 82.7 H Lymph % (Auto) 8.4 L Boyd % (Auto) 7.4 Eos % (Auto) 0.0 Baso % (Auto) 0.1 Lymph # (Auto) 1.2 Boyd # (Auto) 1.0 Eos # (Auto) 0.0 Baso # (Auto) 0.0 Abs Immat Gran (auto) 0.19 H Absolute Neuts (auto) 11.4 H Absolute Nucleated RBC 0.000 Nucleated RBC % (auto) 0.0 Anion Gap 13 Estim Creat Clear Calc 66.1 Estimated GFR 58 POC Glucose 157 H Random Glucose 123 H Calcium 9.5 Magnesium 2.4 Total Bilirubin 0.2 Direct Bilirubin < 0.2 AST 22 ALT 34 H Alkaline Phosphatase 64 Troponin I High Sens < 2.7 B-Natriuretic Peptide 21 Total Protein 7.4 Albumin 4.3 Respiratory Panel Gonzalez Adenovirus (Rapid PCR) B.pert (TEM-PCR) B.parapertussis DNA PCR C. pneumoniae DNA (PCR) Coronavirus OC43 (PCR) Coronavirus HKU1 (PCR) Coronavirus 229E (PCR) Coronavirus NL63 (PCR) Human Metapneumovir PCR Influenza A (RT-PCR) Influenza Type A (PCR) NEGATIVE Influenza B (RT-PCR) Influenza Type B (PCR) NEGATIVE M. pneumoniae (PCR) Parainfluenza 1 (PCR) Parainfluenza 2 (PCR) Parainfluenza 3 (PCR) Parainfluenza 4 (PCR) RSV (PCR) RSV RNA Qual (PCR) NEGATIVE Entero/Rhino (PCR) SARS-CoV-2 RNA (RT-PCR) NEGATIVE 08/01/23 08/01/23 08/01/23 05:56 07:48 07:49 MCV 94.9 MCH 30.7 MCHC 32.3 RDW 14.6 Plt Count 310 MPV 9.3 L Immature Gran % (Auto) 1.3 H Neut % (Auto) 86.6 H Lymph % (Auto) 8.8 L Boyd % (Auto) 3.0 Eos % (Auto) 0.1 Baso % (Auto) 0.2 Lymph # (Auto) 1.0 L Boyd # (Auto) 0.3 Eos # (Auto) 0.0 Baso # (Auto) 0.0 Abs Immat Gran (auto) 0.14 H Absolute Neuts (auto) 9.5 H Absolute Nucleated RBC 0.000 Nucleated RBC % (auto) 0.0 Anion Gap 13 Estim Creat Clear Calc 87.6 Estimated GFR > 60 POC Glucose 140 H Random Glucose 134 H Calcium 9.0 Magnesium Total Bilirubin Direct Bilirubin AST ALT Alkaline Phosphatase Troponin I High Sens B-Natriuretic Peptide Total Protein Albumin Respiratory Panel Gonzalez See Note Adenovirus (Rapid PCR) Not Detected B.pert (TEM-PCR) Not Detected B.parapertussis DNA PCR Not Detected C. pneumoniae DNA (PCR) Not Detected Coronavirus OC43 (PCR) Not Detected Coronavirus HKU1 (PCR) Not Detected Coronavirus 229E (PCR) Detected A Coronavirus NL63 (PCR) Not Detected Human Metapneumovir PCR Not Detected Influenza A (RT-PCR) Not Detected Influenza Type A (PCR) Influenza B (RT-PCR) Not Detected Influenza Type B (PCR) M. pneumoniae (PCR) Not Detected Parainfluenza 1 (PCR) Not Detected Parainfluenza 2 (PCR) Not Detected Parainfluenza 3 (PCR) Detected A Parainfluenza 4 (PCR) Not Detected RSV (PCR) Not Detected RSV RNA Qual (PCR) Entero/Rhino (PCR) Not Detected SARS-CoV-2 RNA (RT-PCR) Not Detected 08/01/23 08/01/23 07:53 11:52 MCV MCH MCHC RDW Plt Count MPV Immature Gran % (Auto) Neut % (Auto) Lymph % (Auto) Boyd % (Auto) Eos % (Auto) Baso % (Auto) Lymph # (Auto) Boyd # (Auto) Eos # (Auto) Baso # (Auto) Abs Immat Gran (auto) Absolute Neuts (auto) Absolute Nucleated RBC Nucleated RBC % (auto) Anion Gap Estim Creat Clear Calc Estimated GFR POC Glucose 122 H 107 Random Glucose Calcium Magnesium Total Bilirubin Direct Bilirubin AST ALT Alkaline Phosphatase Troponin I High Sens B-Natriuretic Peptide Total Protein Albumin Respiratory Panel Gonzalez Adenovirus (Rapid PCR) B.pert (TEM-PCR) B.parapertussis DNA PCR C. pneumoniae DNA (PCR) Coronavirus OC43 (PCR) Coronavirus HKU1 (PCR) Coronavirus 229E (PCR) Coronavirus NL63 (PCR) Human Metapneumovir PCR Influenza A (RT-PCR) Influenza Type A (PCR) Influenza B (RT-PCR) Influenza Type B (PCR) M. pneumoniae (PCR) Parainfluenza 1 (PCR) Parainfluenza 2 (PCR) Parainfluenza 3 (PCR) Parainfluenza 4 (PCR) RSV (PCR) RSV RNA Qual (PCR) Entero/Rhino (PCR) SARS-CoV-2 RNA (RT-PCR) Assessment and Plan (1) Asthma exacerbation: Status: Acute Plan This is a 58-year-old female with pertinent history of asthma not on home oxygen, gastroesophageal reflux disease, essential hypertension who presents to the emergency department for evaluation of dyspnea. Acute respiratory distress due to acute exacerbation of asthma: seen in ED 07/29 and was prescribed prednisone, returned 07/30 with persistent symptoms RPP + for caronavirus 229E and parainfluenza 3 continue IV solu-medrol, breathing treatments cxr negative for pneumonia, no indication for antibiotics [id number] diabetes mellitus: metformin on hold POCs, sliding scale insulin Obesity: BMI 38.1 Counseled regarding diet and exercise Gastroesophageal reflux disease: continue prilosec Essential hypertension: On lisinopril and diltiazem DVT prophylaxis: Lovenox Full code Quality Stroke Does the patient have a stroke diagnosis?: No VTE Prior VTE?: No VTE Risk Level:: Medical - moderate - high VTE Device Contraindication: Treatment Not Indicated VTE Drug Contraindication: N/A - Med Ordered
[2023-08-01 17:52] LABS: Glucose, Whole Blood 109 mg/dL (60-115)
--- NOTE | 2023-08-01 20:53 | PC.NURSE ---
this rn assumed care of pt @ 1900. this rn attempted x3 times to give rn to rn report to floor. at this time awaiting transport to bed assignment
[2023-08-01 20:58] LABS: Glucose, Whole Blood 141 mg/dL (60-115)
[2023-08-01] MEDS: Enoxaparin Sodium 40 MG/0.4 ML SYRINGE SUBCUT (21:03)
[2023-08-01] MEDS: Acetaminophen 325 MG TABLET 650 MG PO (21:33)
[2023-08-02] VITALS (10 sets, daily range): BP systolic 127–141; BP diastolic 64–91; PULSE 54–92; RESP 19–20; TEMP 36.1–36.6; O2SAT 92–98
[2023-08-02] MEDS: Omeprazole 20 MG CAPSULE.DR PO (06:03)
[2023-08-02] MEDS: Albuterol/Iprat 2.5/0.5MG 3 ML AMPUL.NEB INHALE ×4 (07:34→18:59)
[2023-08-02 07:38] LABS: Glucose, Whole Blood 123 mg/dL (60-115)
--- NOTE | 2023-08-02 08:09 | MHC.IC ---
Pt + for Parainfluenza 3 and Ness 229E (NOT COVID 19). Contact and standard precautions per. CDC Appendix A, add mask if patient is coughing.
[2023-08-02] MEDS: methylPREDNISolone Sod Succ 40 MG/ML VIAL IVPUSH ×3 (09:14→23:02)
[2023-08-02] MEDS: lisinopriL 5 MG TABLET PO (09:14)
[2023-08-02] MEDS: Cholecalciferol (Vitamin D3) 25 MCG TABLET PO (09:14)
[2023-08-02] MEDS: 0.9 % Sodium Chloride Flush 3 ML SYRINGE IVFLUSH ×3 (09:14→20:20)
[2023-08-02 11:48] LABS: Glucose, Whole Blood 113 mg/dL (60-115)
--- NOTE | 2023-08-02 13:21 | HO.PM.IMPN ---
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 reporting sob, dry cough Review of Systems Review of Systems: Yes all other systems are reviewed and are negative Constitutional Constitutional: Denies chills and Denies fever(s) Cardiovascular Cardiovascular: Denies chest pain, Denies palpitations and Reports dyspnea Respiratory Respiratory: Denies cough and Reports dyspnea Endocrine Endocrine: Denies palpitations Physical Exam Vital Signs: Vital Signs: Last Vital Signs Temp 97.5 F 08/02/23 11:33 Pulse 84 08/02/23 11:33 Resp 20 08/02/23 11:33 BP 132/75 08/02/23 11:33 Pulse Ox 94 08/02/23 11:33 O2 Del Method Room Air 08/02/23 11:33 BMI result Body Mass Index 38.1 Const: General: cooperative, comfortable, alert and awake Nutritional Appearance: overweight Orientation/consciousness: patient oriented x3 Resp: Other: b/l expiratory wheezing Effort & Inspection: normal respiratory effort and able to speak in complete sentences Cardio: Rate: regular rate GI: Inspection: No distended Palpation (GI): Soft to palpation and nontender Neuro: General: patient oriented x3, moves all extremities and CN's II-XI intact bilaterally Extrem: General: Yes no pedal edema Objective Data Active Medications Acetaminophen (Acetaminophen 325 Mg Tablet) 650 mg PO Q6H PRN PRN Reason: Pain, Mild (Pain Scale 1-3) Last Admin: 08/01/23 21:33 Dose: 650 mg Documented By: CAR Albuterol/Ipratropium (Albuterol/Iprat 2.5/0.5mg 3 Ml Ampul.Neb) 3 ml INHALE RQ4H WHILE AWAKE [facility] Last Admin: 08/02/23 11:13 Dose: 3 ml Documented By: EAGLE Albuterol/Ipratropium (Albuterol/Iprat 2.5/0.5mg 3 Ml Ampul.Neb) 3 ml INHALE Q4H PRN PRN Reason: Wheezing Dextrose (Dextrose 50 % 25 Gm/50 Ml Syringe) 25 gm IVPUSH Q15M PRN; Protocol PRN Reason: per Hypoglycemia Standing Ord. Diltiazem HCl (Diltiazem Hcl Sr 60 Mg Cap.Er.12h) 60 mg PO DAILY [facility]; Protocol Last Admin: 08/02/23 09:15 Dose: Not Given Documented By: ODELL Non-Admin Reason: Med Not Available Diphenhydramine HCl (Diphenhydramine Hcl 25 Mg Capsule) 25 mg PO TID PRN PRN Reason: allergies Enoxaparin Sodium (Enoxaparin Sodium 40 Mg/0.4 Ml Syringe) 40 mg SUBCUT Q24H [facility] Last Admin: 08/01/23 21:03 Dose: 40 mg Documented By: HARRIS Glucose (Glucose Gel 15 Gm Gel..Gram.) 15 gm PO Q15M PRN; Protocol PRN Reason: per Hypoglycemia Standing Ord. Insulin Human Lispro (Insulin Lispro 100 Unit/Ml 3 Ml Vial) 0 unit SUBCUT QIDACHS [facility]; Protocol Last Admin: 08/02/23 11:52 Dose: Not Given Documented By: ODELL Non-Admin Reason: No Insulin Coverage Lisinopril (Lisinopril 5 Mg Tablet) 5 mg PO DAILY [facility]; Protocol Last Admin: 08/02/23 09:14 Dose: 5 mg Documented By: ODELL Melatonin (Melatonin 3 Mg Tablet) 6 mg PO BEDTIME PRN PRN Reason: Insomnia Methylprednisolone Sodium Succinate (Methylprednisolone Sod Succ 40 Mg/Ml Vial) 40 mg IVPUSH Q12H [facility] Last Admin: 08/02/23 09:14 Dose: 40 mg Documented By: ODELL Omeprazole (Omeprazole 20 Mg Capsule.Dr) 20 mg PO DAILY@0630 [facility] Last Admin: 08/02/23 06:03 Dose: 20 mg Documented By: JAZMIN Ondansetron HCl (Ondansetron Hcl 4 Mg/2 Ml Vial) 4 mg IVPUSH Q8H PRN PRN Reason: Nausea and Vomiting Sodium Chloride (0.9 % Sodium Chloride Flush 3 Ml Syringe) 3 ml IVFLUSH QSHIFT [facility] Last Admin: 08/02/23 09:14 Dose: 3 ml Documented By: ODELL Vitamin D (Cholecalciferol (Vitamin D3) 25 Mcg Tablet) 25 mcg PO DAILY [facility] Last Admin: 08/02/23 09:14 Dose: 25 mcg Documented By: ODELL Labs 08/01/23 07:49 08/01/23 07:49 Labs: Laboratory Results - last 24 hr 08/01/23 08/01/23 08/02/23 17:47 20:54 07:28 POC Glucose 109 141 H 123 H 08/02/23 11:36 POC Glucose 113 Assessment and Plan (1) Asthma exacerbation: Status: Acute Plan This is a 58-year-old female with pertinent history of asthma not on home oxygen, gastroesophageal reflux disease, essential hypertension who presents to the emergency department for evaluation of dyspnea. mild intermittent asthma with acute decompensation due to acute viral illness seen in ED 07/29 and was prescribed prednisone, returned 07/30 with persistent symptoms RPP + for caronavirus 229E and parainfluenza 3 increase IV solu-medrol to q8h, continue scheduled and prn breathing treatments cxr negative for pneumonia, no indication for antibiotics [id number]-svcqjeram diabetes mellitus: metformin on hold POCs, sliding scale insulin morbid Obesity: BMI 38.1 Counseled regarding diet and exercise Gastroesophageal reflux disease: continue prilosec Essential hypertension: On lisinopril and diltiazem DVT prophylaxis: Lovenox Full code Requires ongoing inpatient stay due to persistent shortness of breath, wheezing secondary to above asthma and acute viral illness requiring close monitoring of respiratory status Quality Stroke Does the patient have a stroke diagnosis?: No VTE Prior VTE?: No VTE Risk Level:: Medical - moderate - high VTE Device Contraindication: Treatment Not Indicated VTE Drug Contraindication: N/A - Med Ordered
--- NOTE | 2023-08-02 13:28 | P.CDIM_ITS ---
PROVIDER RESPONSE TEXT: To clarify, the appropriate diagnosis supported by the clinical indicators: Mild intermittent QUERY TEXT: PHYSICIAN'S DOCUMENTATION REQUEST Date of Query: 08/02/2023 09:30 AM EDT Patient Name: Rosina Turcios Admit Date: 07/31/2023 Dear Gaviota Lauren, A review of the medical record indicates additional documentation may be needed. Please review below and update the documentation accordingly. The diagnosis of asthma was documented in the record. Clinical indicators: Acute respiratory distress due to acute exacerbation of asthma. IV Solumedrol, breathing treatments Based on the above, please clarify in the Progress Notes further specificity regarding the type of th e asthma: Mild intermittent Mild persistent Moderate persistent Severe persistent Other (explain) Clinically unable to determine (explain) Thank you, Cecille Alcala, CCS, CDIS Use of terms such as suspected, likely, concern for, or probable (associated with a specific diagnosi s that is being evaluated, monitored, or treated as if it exists) are acceptable and can be coded in the inpatient se tting, when documented at the time of discharge. Please use your independent medical judgment in providing your response. THIS QUERY IS PART OF THE PERMANENT MEDICAL RECORD
--- NOTE | 2023-08-02 13:55 | P.CDIM_ITS ---
PROVIDER RESPONSE TEXT: To clarify, the appropriate diagnosis supported by the clinical indicators: Hypernatremia: resolved QUERY TEXT: PHYSICIAN'S DOCUMENTATION REQUEST Date of Query: 08/02/2023 09:34 AM EDT Patient Name: Rosina Turcios Admit Date: 07/31/2023 Dear Gaviota Laurne, A review of the medical record indicates additional documentation may be needed. Please review below and update the documentation accordingly. Clinical Indicators: LAB FINDINGS: Sodium 146 H Fluids Based on the above, is there a diagnosis that correlates with these lab findings: Hypernatremia resolved, possible, suspected Labs indicate a diagnosis of (please specify) Other (explain) Clinically unable to determine (explain) Thank you, Cecille Alcala, CCS, CDIS Use of terms such as suspected, likely, concern for, or probable (associated with a specific diagnosi s that is being evaluated, monitored, or treated as if it exists) are acceptable and can be coded in the inpatient se tting, when documented at the time of discharge. Please use your independent medical judgment in providing your response. THIS QUERY IS PART OF THE PERMANENT MEDICAL RECORD
[2023-08-02 16:16] LABS: Glucose, Whole Blood 106 mg/dL (60-115)
[2023-08-02] MEDS: Acetaminophen 325 MG TABLET 650 MG PO ×2 (16:48→23:04)
[2023-08-02] MEDS: ondansetron HCL 4 MG/2 ML VIAL IVPUSH (18:25)
[2023-08-02] MEDS: Enoxaparin Sodium 40 MG/0.4 ML SYRINGE SUBCUT (20:20)
[2023-08-02 21:29] LABS: Glucose, Whole Blood 127 mg/dL (60-115)
[2023-08-02] MEDS: Melatonin 3 MG TABLET 6 MG PO (23:04)
[2023-08-03] VITALS (11 sets, daily range): BP systolic 124–152; BP diastolic 69–87; PULSE 62–85; RESP 16–20; TEMP 36.2–37.2; O2SAT 88–99
[2023-08-03] MEDS: Omeprazole 20 MG CAPSULE.DR PO (05:34)
[2023-08-03] MEDS: methylPREDNISolone Sod Succ 40 MG/ML VIAL IVPUSH ×3 (06:19→22:44)
[2023-08-03] MEDS: Albuterol/Iprat 2.5/0.5MG 3 ML AMPUL.NEB INHALE ×4 (06:22→19:52)
[2023-08-03 08:08] LABS: Glucose, Whole Blood 121 mg/dL (60-115)
--- NOTE | 2023-08-03 09:45 | HO.PM.IMPN ---
Subjective Subjective Date of Service: 08/03/23 Interval History: seen and examined this morning follow up for asthma exacerbation reporting sob, dry cough Review of Systems Review of Systems: Yes all other systems are reviewed and are negative Constitutional Constitutional: Denies chills and Denies fever(s) Cardiovascular Cardiovascular: Denies chest pain, Denies palpitations and Reports dyspnea Respiratory Respiratory: Denies cough and Reports dyspnea Endocrine Endocrine: Denies palpitations Physical Exam Vital Signs: Vital Signs: Last Vital Signs Temp 98.4 F 08/03/23 07:22 Pulse 73 08/03/23 07:22 Resp 20 08/03/23 07:22 BP 141/84 H 08/03/23 07:22 Pulse Ox 95 08/03/23 07:22 O2 Del Method Room Air 08/03/23 07:22 BMI result Body Mass Index 38.1 Appearing in no acute distress lung sounds exp wheezing heart regular rate rhythm, clear S1, S2 positive bowel sounds, abdomen is soft, nontender neuro patient is alert x3, no focal deficits Objective Data Active Medications Acetaminophen (Acetaminophen 325 Mg Tablet) 650 mg PO Q6H PRN PRN Reason: Pain, Mild (Pain Scale 1-3) Last Admin: 08/02/23 23:04 Dose: 650 mg Documented By: DONALDO Albuterol/Ipratropium (Albuterol/Iprat 2.5/0.5mg 3 Ml Ampul.Neb) 3 ml INHALE RQ4H WHILE AWAKE [facility] Last Admin: 08/03/23 08:17 Dose: Not Given Documented By: MAME Non-Admin Reason: See Note Albuterol/Ipratropium (Albuterol/Iprat 2.5/0.5mg 3 Ml Ampul.Neb) 3 ml INHALE Q4H PRN PRN Reason: Wheezing Last Admin: 08/03/23 06:22 Dose: 3 ml Documented By: BASHIR Dextrose (Dextrose 50 % 25 Gm/50 Ml Syringe) 25 gm IVPUSH Q15M PRN; Protocol PRN Reason: per Hypoglycemia Standing Ord. Diltiazem HCl (Diltiazem Hcl Sr 60 Mg Cap.Er.12h) 60 mg PO DAILY [facility]; Protocol Last Admin: 08/02/23 09:15 Dose: Not Given Documented By: ODELL Non-Admin Reason: Med Not Available Diphenhydramine HCl (Diphenhydramine Hcl 25 Mg Capsule) 25 mg PO TID PRN PRN Reason: allergies Enoxaparin Sodium (Enoxaparin Sodium 40 Mg/0.4 Ml Syringe) 40 mg SUBCUT Q24H [facility] Last Admin: 08/02/23 20:20 Dose: 40 mg Documented By: DONALDO Glucose (Glucose Gel 15 Gm Gel..Gram.) 15 gm PO Q15M PRN; Protocol PRN Reason: per Hypoglycemia Standing Ord. Insulin Human Lispro (Insulin Lispro 100 Unit/Ml 3 Ml Vial) 0 unit SUBCUT QIDACHS [facility]; Protocol Last Admin: 08/03/23 08:20 Dose: Not Given Documented By: ODELL Non-Admin Reason: No Insulin Coverage Lisinopril (Lisinopril 5 Mg Tablet) 5 mg PO DAILY [facility]; Protocol Last Admin: 08/02/23 09:14 Dose: 5 mg Documented By: ODELL Melatonin (Melatonin 3 Mg Tablet) 6 mg PO BEDTIME PRN PRN Reason: Insomnia Last Admin: 08/02/23 23:04 Dose: 6 mg Documented By: DONALDO Methylprednisolone Sodium Succinate (Methylprednisolone Sod Succ 40 Mg/Ml Vial) 40 mg IVPUSH Q8H [facility] Last Admin: 08/03/23 06:19 Dose: 40 mg Documented By: DONALDO Omeprazole (Omeprazole 20 Mg Capsule.) 20 mg PO DAILY@0630 [facility] Last Admin: 08/03/23 05:34 Dose: 20 mg Documented By: DONALDO Ondansetron HCl (Ondansetron Hcl 4 Mg/2 Ml Vial) 4 mg IVPUSH Q8H PRN PRN Reason: Nausea and Vomiting Last Admin: 08/02/23 18:25 Dose: 4 mg Documented By: ODELL Sodium Chloride (0.9 % Sodium Chloride Flush 3 Ml Syringe) 3 ml IVFLUSH QSHIFT [facility] Last Admin: 08/02/23 20:20 Dose: 3 ml Documented By: DONALDO Vitamin D (Cholecalciferol (Vitamin D3) 25 Mcg Tablet) 25 mcg PO DAILY [facility] Last Admin: 08/02/23 09:14 Dose: 25 mcg Documented By: ODELL Labs 08/01/23 07:49 08/01/23 07:49 Labs: Laboratory Results - last 24 hr 08/02/23 08/02/23 08/02/23 11:36 15:49 20:10 POC Glucose 113 106 127 H 08/03/23 07:23 POC Glucose 121 H Assessment and Plan (1) Asthma exacerbation: Status: Acute Plan 58-year-old female with pertinent history of asthma not on home oxygen, gastroesophageal reflux disease, essential hypertension who presents to the emergency department for evaluation of dyspnea. Mild intermittent asthma with acute decompensation due to acute viral illness seen in ED 07/29 and was prescribed prednisone, returned 07/30 with persistent symptoms RPP + for coronavirus 229E and parainfluenza 3 IV solu-medrol to q8h, continue scheduled and prn breathing treatments cxr negative for pneumonia, no indication for antibiotics Jrr-vaydkyi-lbnbrysin diabetes mellitus metformin on hold POCs, sliding scale insulin morbid Obesity BMI 38.1 Counseled regarding diet and exercise Gastroesophageal reflux disease continue prilosec Essential hypertension: On lisinopril and diltiazem DVT prophylaxis: Lovenox Attending Dr. Chavez Full code Requires ongoing inpatient stay due to persistent shortness of breath, wheezing secondary to above asthma and acute viral illness requiring close monitoring of respiratory status Quality Stroke Does the patient have a stroke diagnosis?: No VTE Prior VTE?: No VTE Risk Level:: Medical - moderate - high VTE Device Contraindication: Treatment Not Indicated VTE Drug Contraindication: N/A - Med Ordered
[2023-08-03] MEDS: 0.9 % Sodium Chloride Flush 3 ML SYRINGE IVFLUSH ×3 (09:54→19:11)
[2023-08-03] MEDS: Cholecalciferol (Vitamin D3) 25 MCG TABLET PO (09:54)
[2023-08-03] MEDS: lisinopriL 5 MG TABLET PO (09:54)
[2023-08-03 11:36] LABS: Glucose, Whole Blood 150 mg/dL (60-115)
[2023-08-03 16:11] LABS: Glucose, Whole Blood 91 mg/dL (60-115)
[2023-08-03] MEDS: Enoxaparin Sodium 40 MG/0.4 ML SYRINGE SUBCUT (19:11)
[2023-08-03 20:43] LABS: Glucose, Whole Blood 142 mg/dL (60-115)
[2023-08-04 03:10] VITALS: BP 165/80; PULSE 80; RESP 20; TEMP 36.1; O2SAT 92
[2023-08-04] MEDS: Albuterol/Iprat 2.5/0.5MG 3 ML AMPUL.NEB INHALE ×2 (03:46→08:24)
[2023-08-04] MEDS: Omeprazole 20 MG CAPSULE.DR PO (06:11)
[2023-08-04] MEDS: methylPREDNISolone Sod Succ 40 MG/ML VIAL IVPUSH (06:11)
[2023-08-04 07:45] VITALS: BP 145/82; PULSE 78; RESP 18; TEMP 36.4; O2SAT 95
[2023-08-04 07:53] LABS: Glucose, Whole Blood 123 mg/dL (60-115)
[2023-08-04 08:25] VITALS: PULSE 104; RESP 18; O2SAT 97
[2023-08-04] MEDS: dilTIAZem HCL SR 60 MG CAP.ER.12H PO (08:29)
[2023-08-04] MEDS: 0.9 % Sodium Chloride Flush 3 ML SYRINGE IVFLUSH (08:30)
[2023-08-04] MEDS: guaiFENesin LA 600 MG TAB.ER.12H PO (08:30)
[2023-08-04] MEDS: lisinopriL 5 MG TABLET PO (08:30)
[2023-08-04] MEDS: Cholecalciferol (Vitamin D3) 25 MCG TABLET PO (08:30)
--- NOTE | 2023-08-04 09:51 | P.DS_ITS ---
DS: Providers Provider Date of Service: 08/04/23 Date of admission: 07/31/23 19:46 Primary care physician: Oj Aparicio MD DS: Diagnosis Discharge Diagnosis (1) Asthma exacerbation: Status: Acute DS: Summary Hospital Course Hospital Course: History and physical as per admitting provider. This is a 58-year-old female with pertinent history of asthma not on home oxygen, gastroesophageal reflux disease, essential hypertension who presents to the emergency department for evaluation of dyspnea. Patient was seen in the ER 1 day prior to presentation and discharged prescription for p.o. prednisone. Patient states her symptoms continued which prompted ER visit again. She has been having dyspnea which is worse with exertion. Also has associated wheezing and nonproductive cough. No fever, chills, palpitations, chest discomfort, abdominal pain, changes in ur inary or bowel habits. In the emergency department, patient with continued wheezing and tachypnea despite multiple DuoNeb treatments. Patient received IV magnesium and IV steroids in the ER. 58-year-old woman treated for mild intermittent asthma with acute decompensation due to acute viral illness secondary to coronavirus 229 E and parainfluenza 3. She was treated with IV Solu-Medrol, scheduled DuoNeb treatments. Chest x-ray was negative for pneumonia and therefore no indication for antibiotics. Patient did not require oxygen. Plan is for discharge home with short steroid taper, a few days of Mucinex and new prescriptions for albuterol inhaler and DuoNeb solution. Patient in agreement to discharge. Noninsulin dependent diabetes mellitus type 2. Continue metformin Obesity. Discussed importance of weight management as this may be contributing to worsening of other comorbidities GERD. Continue PPI Hypertension. Continue lisinopril and diltiazem Time Attestation Discharge Coordination Time (in mins): 40 Quality: Safe Use of Opioids Does Pt have an Active Cancer Diagnosis on the Problem List?: No Quality: Stroke Does the patient have a stroke diagnosis?: No Physical Exam Vital Signs: Vital Signs: Last Vital Signs Temp 97.6 F 08/04/23 07:45 Pulse 104 H 08/04/23 08:25 Resp 18 08/04/23 08:25 BP 145/82 H 08/04/23 07:45 Pulse Ox 95 08/04/23 07:45 O2 Del Method Room Air 08/04/23 07:45 BMI result Body Mass Index 38.1 Appearing in no acute distress head is normocephalic atraumatic eyes pupils are PERRLA sclera is anicteric mouth throat mucous membranes are intact and moist neck is supple no lymphadenopathy, no JVD noted lung sounds are clear to auscultation heart regular rate rhythm, clear S1, S2 positive bowel sounds, abdomen is soft, nontender neuro patient is alert x3, no focal deficits DS: Data Data Completed and Pending Labs on day of discharge: Laboratory Results - last 24 hr 08/03/23 08/03/23 08/03/23 11:25 16:00 20:21 POC Glucose 150 H 91 142 H 08/04/23 07:47 POC Glucose 123 H Discharge Plan Discharge Anticipated Discharge Date/Time: 08/04/23 09:43 Patient Disposition: Home, Self-Care Discharge Diagnosis: Acute viral illness Coronavirus 229 E, parainfluenza 3 Mild intermittent asthma Referrals: Oj Aparicio MD [Primary Care Provider] - 1 Week Discharge Medications: New guaifenesin [Mucinex] 600 mg tablet extended release 12hr 600 mg PO BID Qty: 6 0RF prednisone 10 mg tablet 40 mg PO DIRECTED Qty: 16 0RF Rx Instructions: see taper instructions Continued metformin 500 mg tablet 500 mg PO DAILY 90 Days Qty: 90 3RF omeprazole 20 mg capsule,delayed release(DR/EC) 20 mg PO DAILY 90 Days Qty: 90 2RF lisinopril 5 mg tablet 5 mg PO DAILY 90 Days Qty: 90 2RF diltiazem HCl 60 mg capsule,extended release 12 hr 60 mg PO QAM 90 Days Qty: 90 0RF prednisone 20 mg Tablet 40 mg PO DAILY Rx Instructions: start july 30. Take 2 daily for 4 days diphenhydramine HCl [Benadryl] 25 mg Capsule 25 mg PO TID PRN (Reason: allergies) Excedrin Migraine 250-250-65 mg Tablet 1 tab PO Q4-6H PRN (Reason: Migraine Headache) cholecalciferol (vitamin D3) [Vitamin D3] 25 mcg (1,000 unit) Tablet 25 mcg PO DAILY albuterol sulfate 2.5 mg /3 mL (0.083 %) solution for nebulization 2.5 mg inhalation Q4-6H PRN (Reason: shortness of breath or wheezing) Qty: 75 0RF (DME) nebulizers [Compact Compressor Nebulizer] Misc See Rx Instructions .Route Qty: 1 0RF Rx Instructions: Use As directed, 4 times a day as needed for Wheeze/SOB, 999 days Changed albuterol sulfate 90 mcg/actuation HFA aerosol inhaler 2 puff inhalation QID PRN (Reason: Wheezing) 30 Days Qty: 8.5 0RF Discharge Orders: Discharge Order (Routine); Ordered 08/04/23 Ordered By: Jessica Watkins Diet: Advance to usual diet Activity on Discharge: As tolerated Stand Alone Forms: Patient Portal Discharge page Care Plan Goals: Complete course of steroids, use albuterol as needed Health Concerns: Acute viral illness Coronavirus 229 E, parainfluenza 3 Mild intermittent asthma Plan of Treatment: Follow-up with primary care provider as needed Take all medications as prescribed Assessment: See discharge summary
--- NOTE | 2023-08-04 10:05 | MHC.CM.PN ---
Patient has been medically cleared for dc to home today, self care.
== END 2023-08-04 11:54 | disposition home or self-care (01) | DRG 141 ==
LOC: HO.ED 18:52 → HO.EDOVER 08-01 05:45 → HO.IMC 08-01 19:23 → HO.EDOVER 08-02 11:55
PROVIDERS: Physician Assistant; Physician Assistant Medical; Admitting Provider Student in an Organized Health Care Education/Training Program; Emergency Provider Student in an Organized Health Care Education/Training Program; PCP Family Medicine; Visit Provider Nurse Practitioner Acute Care
DX: J45.21 Mild intermittent asthma with (acute) exacerbation (principal); B97.29 Other coronavirus as the cause of diseases classified elsewhere; K21.9 Gastro-esophageal reflux disease without esophagitis; B97.89 Other viral agents as the cause of diseases classified elsewhere; E66.01 Morbid (severe) obesity due to excess calories; Z68.38 Body mass index [BMI] 38.0-38.9, adult; I10 Essential (primary) hypertension; Z87.891 Personal history of nicotine dependence; Z79.52 Long term (current) use of systemic steroids; Z79.84 Long term (current) use of oral hypoglycemic drugs; Z79.899 Other long term (current) drug therapy
CPT/HCPCS: 0241U; 36415; 71046; 80048; 80076; 82947; 83735; 83880; 84484; 85025; 87633; 93005; 94640; 99285; J0456; J0696; J1650; J2405; J2920; J2930; J3475

== ENCOUNTER → 2023-07-31 15:32 | Outpatient (BNV) | payer OTHER, SELFPAY | PROVIDERS: Admitting Provider Student in an Organized Health Care Education/Training Program; Emergency Provider Student in an Organized Health Care Education/Training Program; Visit Provider Internal Medicine Cardiovascular Disease | DX: R00.0 Tachycardia, unspecified (principal); R06.02 Shortness of breath | CPT/HCPCS: 93010 ==

== ENCOUNTER → 2023-07-31 16:13 | Outpatient (BNV) | payer OTHER, SELFPAY | PROVIDERS: Emergency Provider Student in an Organized Health Care Education/Training Program; Visit Provider Student in an Organized Health Care Education/Training Program | DX: J45.21 Mild intermittent asthma with (acute) exacerbation (principal) | CPT/HCPCS: 99222; 99232; 99239 ==

== ENCOUNTER 2023-08-27 15:21 | Outpatient (AMB) | payer OTHER, SELFPAY ==
--- NOTE | 2023-08-27 15:24 | MHC.PC.OV ---
Intake Visit [place] [facility] [place] asthma exacerbation Intake Note: Patient is here for follow up on asthma exacerbation. Patient is requesting a new glucose moniter system, new rescue inhaler, and Albuterol for nebulizer. Allergies No Known Allergies Allergy (Verified 08/27/23 15:33) Tobacco use date assessed: 08/27/23 Dental Screening Dental Screen Date: 06/05/23 [facility] 08/03 asthma exacerbation HPI Details 58 y/o female presents to f/u [facility] [place] 08/04/23 for an asthma exacerbation. Had been treated with mild intermittent asthma with acute decompensation due to viral illness secondary to coronavirus and influenza. Was treated with IV Solu-Medrol, scheduled DuoNeb treatments. Was discharged home with short steroid taper and new prescriptions for alubterol inhaler and DuoNeb solution. Had an appt. with pulmonology but had been unable to make the appt. as she had not been feeling well. Denies any asthma exacerbation today. [facility] Medical History Foul smelling urine Obesity Elevated fasting glucose Foot pain Screening for cervical cancer Breast cancer screening Screening for colon cancer Adult general medical examination Rash Laboratory exam ordered as part of routine general medical examination Prediabetes Asthma Kidney stone Hernia Surgical History History of ureteroscopy History of herniorrhaphy Family History Maternal Grandmother Alzheimer's dementia Osteoarthritis Father Diabetes Social History Caregiver staying overnight: No Housing: Apartment Are you a primary personal care assistant to a significant other at home: No Do you presently have visiting nurse or other home services: No 75 years or older and lives alone: No Patient Tobacco Use Status: Former Tobacco user Quit Date: 3 Years ago Tobacco use type: Cigarette Cigarette Packs Per Day: 1 (1 pack per 2 days) Cigarettes Per Day: 10 e-Cigarette/Vaping Use: Never Used Second Hand Smoke Exposure: Yes (Due to where patient lives.) service: No Current occupational status: unemployed Current occupational exposures/hazards: No Cognitive needs: No Hearing needs: Yes Vision needs: Yes Questionnaire Thrive Questionnaire Date Thrive assessed: 08/01/23 ROBINSON-7 AMB Questionnaire ROBINSON-7 Date ROBINSON - 7 assessed: 03/06/23 Source: Developed by Drs. Irwin Disla, Yany Bower, Ronen Cloud and colleagues, with an educational ros from [email or web address]. ACT Questionnaire In the past 4 weeks, how much of the time did your asthma keep you from getting as much done at work, school or at home?: A little of the time During the past 4 weeks, how often have you had shortness of breath?: 1-2 times a week During the past 4 weeks, how often did your asthma symptoms wake you up at night or earlier than usual in the morning?: Not at all During the past 4 weeks, how often have you had to use your rescue inhaler or nebulizer medication?: 1-2 times a week How would you rate your asthma control during the past 4 weeks?: Somewhat controlled Score: 18 Review of Systems Const Denies chills, Denies fatigue, Denies fever(s), Denies headache(s) and Denies weakness ENT Denies dizziness and Denies headache(s) Card Denies chest pain, Denies lightheadedness, Denies dyspnea and Denies other (Palpitations) Resp Denies cough, Denies dyspnea, Denies wheezing and Denies other ( shortness of breath) Musc Denies numbness and Denies tingling Neuro Denies dizziness, Denies headache(s), Denies numbness, Denies tingling, Denies paresthesias and Denies weakness Psych Denies anxiety and Denies depression Endo Denies fatigue Aller/Immun Denies wheezing Physical exam (Primary Care) Tobacco/Smoking Status: Tobacco use Status Tobacco use date assessed 08/27/23 08/27/23 15:34 Patient Tobacco Use Status Former Tobacco user 08/27/23 15:25 Tobacco use type Cigarette 08/27/23 15:25 e-Cigarette/Vaping Use Never Used 08/27/23 15:25 Thrive Assessment: Date of Thrive Assessment Date Thrive assessed 08/01/23 08/27/23 15:25 Const General: no acute distress and well developed Nutritional Appearance: well nourished Orientation/consciousness: patient oriented x3 HENMT Head: Yes normocephalic and Yes atraumatic Eyes General: appearance normal, both eyes and all related structures Pupils: Equal, round and reactive pupils present EOM: EOMs intact bilaterally Resp Effort & Inspection: normal respiratory effort Auscultation: clear to auscultation bilaterally Cardio Rate: regular rate Rhythm: regular rhythm Heart sounds: S1 normal heart sound present, S2 normal heart sound present, no gallops, no murmurs and no rubs Neuro General: patient oriented x3 and gait normal Cranial nerves: Yes Equal, round and reactive pupils present Psych Affect: normal affect Assessment and Plan Assessment & Plan (1) Asthma, moderate persistent: Code(s): J45.40 - Moderate persistent asthma, uncomplicated Plan: Ongoing?moderate?persistent?asthma?with?multiple?exacerbations?and?ED?visits. Patient?has?had?difficulty?getting?a?controller?medication?and?has?been?using?albuterol?alone. Will?trial?sending?another?controller?medication.??Will?ask?the?medical?dental assistant medical assistant?to?work?on?prior?authorization?or?check?with?the?insurance?company?to?find?out?what?they?will?cover. Discussed?with?patient?that?ultimately?she?will?need?to?follow-up?with?pulmonology?as?well?to?ensure?that?she?is?appropriately?managed?and?optimized. Orders: Referrals Pulmonology Referral J45.40 - Moderate persistent asthma, uncomplicated Medications: New fluticasone propion-salmeterol 500-50 mcg/dose (Advair Diskus) 1 inh inhalation Q12H 30 days 60 ea 2RF Refilled albuterol sulfate 2.5 mg (3 mL) inhalation Q4-6H PRN 75 mL 0RF shortness of breath or wheezing albuterol sulfate 90 mcg/actuation 2 puffs inhalation QID 30 days PRN 8.5 grams 3RF Wheezing Coding Level of Care Code Est Pt Level 3 (15538) Diagnoses Asthma, moderate persistent J45.40
== END 2023-08-27 16:21 | disposition home or self-care (01) ==
PROVIDERS: PCP Family Medicine; Visit Provider Family Medicine
DX: J45.40 Moderate persistent asthma, uncomplicated (principal)
CPT/HCPCS: 99214